=== PATIENT | male | born 1960 | race Caucasian/White ===

== ENCOUNTER 2016-09-22 20:50 | Emergency (ER) | payer OTHER ==
[2016-09-22] MEDS ORDERED: Sodium Chloride 0.9% 1000 ML 1,000 ML IV STA ×2 (21:06→22:00)
[2016-09-22] MEDS ORDERED: SUBLIMAZE 100 MCG/2 ML IV ONE ×2 (21:06→21:34)
[2016-09-22] MEDS ORDERED: Ativan 2 MG/1 ML VIAL IV ONE (21:07)
[2016-09-22] MEDS ORDERED: Ativan 2 MG/1 ML VIAL ONE (21:10)
[2016-09-22] MEDS ORDERED: Sodium Chloride 0.9% 1000 ML 1,000 ML ONE ×2 (21:10→22:30)
[2016-09-22] MEDS ORDERED: SUBLIMAZE 100 MCG/2 ML ONE ×2 (21:10→21:50)
[2016-09-22] MEDS ORDERED: Versed 2 MG/2 ML Injection IV ONE (21:34)
--- NOTE | 2016-09-22 21:37 | ERPHSYRPT ---
- History of Present Illness Time Seen by Provider: 09/22/16 21:35 Source: patient Exam Limitations: no limitations Patient Subjective Stated Complaint: pt states his shoulder is doslocated and he is having extreme pain. Triage Nursing Assessment: pt alert and oriented. answers questions approp. pt irritable and asking for pain medicine. respirations tachy, nonlbored. pt transfer to stretcher from wheelchair without diff. obvious deformity to lt shoulder. cap refill and radial pulse to lt wnl. Physician History: pt states his shoulder is doslocated and he is having extreme pain. Occurred: just prior to arrival Method of Injury: twisted Quality: constant Severity of Pain-Max: severe Severity of Pain-Current: severe Extremities Pain Location: shoulder: left (anterior dislocation) Modifying Factors: Improves With: nothing Associated Symptoms: none Allergies/Adverse Reactions: amoxicillin [Amoxicillin] Allergy (Intermediate, Verified 05/12/16 13:36) Rash Home Medications: Aspirin 81 gm Chew [Baby Aspirin 81 mg Chew] 81 mg PO DAILY 09/14/15 [ History] Duloxetine HCl 30 mg [Cymbalta 30 MG Capsule] 30 mg PO DAILY 09/14/15 [ History] Omeprazole 20 MG [Prilosec 20 mg] 20 mg PO DAILY 09/14/15 [History] Simvastatin 40 mg [Zocor 40 mg] 40 mg PO DAILY 09/14/15 [History] Clopidogrel Bisulfate 75 mg [PLAVIX 75 MG Tablet] 75 mg PO DAILY 10/24/15 [History] Atenolol 25 mg PO DAILY 03/16/16 [History] Hx Tetanus, Diphtheria Vaccination/Date Given: No Hx Influenza Vaccination/Date Given: Yes Hx Pneumococcal Vaccination/Date Given: No - Review of Systems Constitutional: No Symptoms Eyes: No Symptoms Ears, Nose, & Throat: No Symptoms Respiratory: No Symptoms Cardiac: No Symptoms Abdominal/Gastrointestinal: No Symptoms Musculoskeletal: Joint Pain (left shoulder), Joint Swelling - Past Medical History Pertinent Past Medical History: Yes Neurological History: No Pertinent History ENT History: No Pertinent History Cardiac History: Coronary Artery Disease, High Cholesterol, Hypertension, Myocardial Infarction ([place]) Respiratory History: No Pertinent History Endocrine Medical History: No Pertinent History Musculoskeletal History: Fractures GI Medical History: No Pertinent History, Diverticulosis History: No Pertinent History Psycho-Social History: No Pertinent History Male Reproductive Disorders: No Pertinent History - Past Surgical History Past Surgical History: Yes Neuro Surgical History: No Pertinent History Cardiac: CABG, Cardiac Stent Respiratory: No Pertinent History Gastrointestinal: No Pertinent History Genitourinary: No Pertinent History Musculoskeletal: Orthopedic Surgery Male Surgical History: No Pertinent History Other Surgical History: shoulder - Social History Smoking Status: Current every day smoker How long have you smoked: 40 yrs Exposure to second hand smoke: Yes Drug Use: none Patient Lives Alone: No - Nursing Vital Signs Nursing Vital Signs: Initial Vital Signs Temperature 97.6 F Temperature Source Oral Pulse Rate 93 Respiratory Rate 16 Blood Pressure [] 147/92 Pain Intensity 10 - Physical Exam General Appearance: moderate distress Eyes, Ears, Nose, Throat Exam: normal ENT inspection Neck Exam: normal inspection Cardiovascular/Respiratory Exam: chest non-tender Abdominal Exam: non-tender Shoulder Exam: bone tenderness, limited ROM, pain, soft tissue tenderness, swelling (left shoulder) SpO2: 97 Oxygen Delivery: Room Air Procedures - Joint Reduction Timeout: Performed Joint Reduction Site: Left, shoulder Reduction Attempts: 4 Post Procedure Neurovascular Exam: neurovascular intact, unchanged from pre-exam Post Joint Reduction Film: joint not reduced - Course Nursing assessment & vital signs reviewed: Yes - Radiology Exams Shoulder X-ray Interpretation: Reviewed by me, Subluxation (anterior dislocation ) Ordered Tests: Active Orders 24 hr Category Date Time Status SHOULDER Stat Exams 09/22/16 21:06 Taken Medication Summary Discontinued Medications Generic Name Dose Route Start Last Admin Trade Name Freq PRN Reason Stop Dose Admin Fentanyl Citrate 50 mcg 09/22/16 21:06 09/22/16 21:11 Sublimaze 100 Mcg/2 Ml IV 09/22/16 21:07 50 mcg STAT ONE Administration Fentanyl Citrate Confirm 09/22/16 21:10 Sublimaze 100 Mcg/2 Ml Administered 09/22/16 21:11 Dose 100 mcg .ROUTE .STK-MED ONE Fentanyl Citrate 100 mcg 09/22/16 21:34 09/22/16 21:57 Sublimaze 100 Mcg/2 Ml IV 09/22/16 21:35 100 mcg STAT ONE Administration Fentanyl Citrate Confirm 09/22/16 21:50 Sublimaze 100 Mcg/2 Ml Administered 09/22/16 21:51 Dose 100 mcg .ROUTE .STK-MED ONE Sodium Chloride 1,000 mls @ 999 mls/hr 09/22/16 21:06 09/22/16 21:11 Sodium Chloride 0.9% 1000 Ml IV 09/22/16 22:06 999 mls/hr .Q1H1M STA Administration Sodium Chloride Confirm 09/22/16 21:10 Sodium Chloride 0.9% 1000 Ml Administered 09/22/16 21:11 Dose 1,000 mls @ ud .ROUTE .STK-MED ONE Sodium Chloride Confirm 09/22/16 22:30 Sodium Chloride 0.9% 1000 Ml Administered 09/22/16 22:31 Dose 1,000 mls @ ud .ROUTE .STK-MED ONE Lorazepam 2 mg 09/22/16 21:07 09/22/16 21:12 Ativan 2 Mg/1 Ml Vial IV 09/22/16 21:08 2 mg STAT ONE Administration Lorazepam Confirm 09/22/16 21:10 Ativan 2 Mg/1 Ml Vial Administered 09/22/16 21:11 Dose 2 mg .ROUTE .STK-MED ONE Midazolam HCl 2 mg 09/22/16 21:34 09/22/16 21:57 Versed 2 Mg/2 Ml Injection IV 09/22/16 21:35 2 mg 1XONLY ONE Administration Midazolam HCl Confirm 09/22/16 21:51 Versed 5 Mg/5 Ml Administered 09/22/16 21:52 Dose 5 mg .ROUTE .STK-MED ONE - Progress Progress: unchanged, pain not gone completely Discussed with Dr.: Other (Dr Galvez at [facility] ER, she accepted patient. will send [facility]) Will see patient in: ED Counseled pt/family regarding: diagnosis, need for follow-up, rad results - Departure Time of Disposition: 22:59 Departure Disposition: Transfer ([facility] ER via [facility] for further treatmsnt, Dr Wynne informed) Clinical Impression: Shoulder dislocation, recurrent Qualifiers: Laterality: left Qualified Code(s): M24.412 - Recurrent dislocation, left shoulder Condition: Stable Critical Care Time: Yes Critical Care Time(excluding separately billable procedures): 30-74 minutes Referrals: GAIL MONROY [Primary Care Provider] - Instructions: Shoulder Dislocation
[2016-09-22] MEDS ORDERED: VERSED 5 MG/5 ML ONE (21:51)
[2016-09-22 23:18] VITALS: PULSE 89
[2016-09-22 23:39] VITALS: BP 136/87; O2SAT 100
--- NOTE | 2016-09-23 10:27 | XRAY ---
Indication: Pain following injury. Comparison: April 04, 2016. Single AP left shoulder demonstrates new anterior inferior humeral head dislocation with stable moderate AC degenerative arthropathy and heterotopic ossification. No other bony, articular, or soft tissue abnormalities.
== END 2016-09-22 23:34 | disposition short-term general hospital (02) ==
LOC: ED 20:50
PROC: 0RSKXZZ Reposition Left Shoulder Joint, External Approach (ICD-10-PCS; principal; 2016-09-22)
DX: M24.412 Recurrent dislocation, left shoulder (principal); M25.512 Pain in left shoulder; X50.0XXA Overexertion from strenuous movement or load, initial encounter; I10 Essential (primary) hypertension; E78.00 Pure hypercholesterolemia, unspecified; I25.2 Old myocardial infarction; I25.10 Atherosclerotic heart disease of native coronary artery without angina pectoris; Z79.899 Other long term (current) drug therapy
CPT/HCPCS: 23650; 73030; 96360; 96361; 96374; 96375; 96376; 99285; 99291; J2060; J2250; J3010

== ENCOUNTER 2017-06-28 21:17 | Day surgery (SDC) | payer OTHER ==
[2017-06-28] MEDS ORDERED: TORAdol 30 mg Injection IM ONE (21:38)
[2017-06-28] MEDS ORDERED: TORAdol 30 mg Injection ONE (21:43)
--- NOTE | 2017-06-28 21:43 | ERPHSYRPT ---
- History of Present Illness Time Seen by Provider: 06/28/17 21:40 Source: patient Exam Limitations: no limitations Patient Subjective Stated Complaint: left shoulder dislocation while reaching over Triage Nursing Assessment: left shoulder dislocation, pulses palp, CR < 3 sec Physician History: 57-year-old male came to the emergency room with complaining of left shoulder pain. Patient was standing in the bed and suddenly started having a left shoulder pain and he feels like he dislocated his shoulder. He has a same problem off and on with shoulder dislocation. Denies any other injury. Occurred: just prior to arrival Extremities Pain Location: shoulder: left Modifying Factors: Improves With: nothing Associated Symptoms: none Allergies/Adverse Reactions: amoxicillin [Amoxicillin] Allergy (Intermediate, Verified 05/12/16 13:36) Rash Home Medications: Aspirin 81 gm Chew [Baby Aspirin 81 mg Chew] 81 mg PO DAILY 09/14/15 [ History] Duloxetine HCl 30 mg [Cymbalta 30 MG Capsule] 30 mg PO DAILY 09/14/15 [ History] Omeprazole 20 MG [Prilosec 20 mg] 20 mg PO DAILY 09/14/15 [History] Simvastatin 40 mg [Zocor 40 mg] 40 mg PO DAILY 09/14/15 [History] Clopidogrel Bisulfate 75 mg [PLAVIX 75 MG Tablet] 75 mg PO DAILY 10/24/15 [History] Furosemide 20 mg [Lasix 20 mg] 1 tab PO DAILY PRN PRN 06/28/17 [History] Lisinopril [Zestril] 1 tab PO DAILY 06/28/17 [History] Metoprolol Succinate 1 tab PO DAILY 06/28/17 [History] Potassium Chloride 20 Meq [Klor-Con 20 MEQ] 1 tab PO DAILY 06/28/17 [History] Hx Tetanus, Diphtheria Vaccination/Date Given: Yes Hx Influenza Vaccination/Date Given: Yes Hx Pneumococcal Vaccination/Date Given: No Immunizations Up to Date: Yes - Review of Systems Constitutional: No Symptoms Musculoskeletal: Deformity (left shoulder), Joint Pain, Joint Swelling - Past Medical History Pertinent Past Medical History: Yes Neurological History: No Pertinent History ENT History: No Pertinent History Cardiac History: Coronary Artery Disease, High Cholesterol, Hypertension, Myocardial Infarction ([place]) Respiratory History: No Pertinent History Endocrine Medical History: No Pertinent History Musculoskeletal History: Fractures GI Medical History: No Pertinent History, Diverticulosis History: No Pertinent History Psycho-Social History: No Pertinent History Male Reproductive Disorders: No Pertinent History - Past Surgical History Past Surgical History: Yes Neuro Surgical History: No Pertinent History Cardiac: CABG, Cardiac Stent Respiratory: No Pertinent History Gastrointestinal: No Pertinent History Genitourinary: No Pertinent History Musculoskeletal: Orthopedic Surgery Male Surgical History: No Pertinent History Other Surgical History: shoulder - Social History Smoking Status: Current every day smoker How long have you smoked: 40 yrs Exposure to second hand smoke: Yes Drug Use: none Patient Lives Alone: No - Nursing Vital Signs Nursing Vital Signs: Initial Vital Signs Temperature 97.4 F 06/28/17 21:26 Pulse Rate 80 06/28/17 21:26 Respiratory Rate 16 06/28/17 21:26 Blood Pressure 131/76 06/28/17 21:26 O2 Sat by Pulse Oximetry 100 06/28/17 21:26 Pain Scale Pain Intensity 10 - Physical Exam General Appearance: mild distress Shoulder Exam: bone tenderness, deformity, limited ROM, pain, soft tissue tenderness SpO2: 100 Oxygen Delivery: Room Air Procedures - Joint Reduction Timeout: Performed Joint Reduction Site: Left, shoulder Conscious Sedation: Yes Reduction Attempts: 3 Pre-Procedure Neurovascular Exam: neurovascular intact Post Procedure Neurovascular Exam: neurovascular intact Post Joint Reduction Film: joint not reduced Progress: Dr Natan stevens consulted. He suggest he will come to ER and will reduce dislocation at [facility]. 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 - Course Nursing assessment & vital signs reviewed: Yes - Radiology Exams Shoulder X-ray Interpretation: Reviewed by me, Subluxation Ordered Tests: Active Orders 24 hr Category Date Time Status SHOULDER Stat Exams 06/28/17 21:37 Taken Medication Summary Discontinued Medications Generic Name Dose Route Start Last Admin Trade Name Freq PRN Reason Stop Dose Admin Sodium Chloride 1,000 mls @ 999 mls/hr 06/28/17 22:19 06/28/17 22:45 Sodium Chloride 0.9% 1000 Ml IV 06/28/17 23:19 999 mls/hr .Q1H1M STA Administration Sodium Chloride Confirm 06/28/17 22:38 Sodium Chloride 0.9% 1000 Ml Administered 06/28/17 22:39 Dose 1,000 mls @ ud .ROUTE .STK-MED ONE Sodium Chloride Confirm 06/28/17 22:51 Sodium Chloride 0.9% 1000 Ml Administered 06/28/17 22:52 Dose 1,000 mls @ ud .ROUTE .STK-MED ONE Ketorolac Tromethamine 60 mg 06/28/17 21:38 06/28/17 21:47 Toradol 30 Mg Injection IM 06/28/17 21:39 60 mg STAT ONE Administration Ketorolac Tromethamine Confirm 06/28/17 21:43 Toradol 30 Mg Injection Administered 06/28/17 21:44 Dose 60 mg .ROUTE .STK-MED ONE Midazolam HCl 5 mg 06/28/17 22:52 Versed 5 Mg/5 Ml IV 06/28/17 22:53 STAT ONE Midazolam HCl Confirm 06/28/17 22:51 Versed 5 Mg/5 Ml Administered 06/28/17 22:52 Dose 5 mg .ROUTE .STK-MED ONE Morphine Sulfate 4 mg 06/28/17 22:19 06/28/17 22:44 Morphine Sulfate 4 Mg Inj IV 06/28/17 22:20 4 mg STAT ONE Administration Morphine Sulfate Confirm 06/28/17 22:38 Morphine Sulfate 4 Mg Inj Administered 06/28/17 22:39 Dose 4 mg .ROUTE .STK-MED ONE Morphine Sulfate Confirm 06/28/17 23:01 Morphine Sulfate 4 Mg Inj Administered 06/28/17 23:02 Dose 4 mg .ROUTE .STK-MED ONE - Progress Progress: unchanged, pain not gone completely Discussed with : John Will see patient in: ED Counseled pt/family regarding: diagnosis, need for follow-up, rad results - Departure Time of Disposition: 23:34 Departure Disposition: Observation Clinical Impression: Shoulder dislocation, recurrent Qualifiers: Laterality: left Qualified Code(s): M24.412 - Recurrent dislocation, left shoulder Condition: Stable Critical Care Time: Yes Critical Care Time(excluding separately billable procedures): 30-74 minutes Referrals: GAIL MONROY [Primary Care Provider] - Instructions: Shoulder Dislocation
[2017-06-28] MEDS ORDERED: Sodium Chloride 0.9% 1000 ML 1,000 ML IV STA (22:19)
[2017-06-28] MEDS ORDERED: MORPHINE SULFATE 4 MG INJ IV ONE (22:19)
[2017-06-28] MEDS ORDERED: Sodium Chloride 0.9% 1000 ML 1,000 ML ONE ×2 (22:38→22:51)
[2017-06-28] MEDS ORDERED: MORPHINE SULFATE 4 MG INJ ONE ×2 (22:38→23:01)
[2017-06-28] MEDS ORDERED: VERSED 5 MG/5 ML ONE (22:51)
[2017-06-28] MEDS ORDERED: VERSED 5 MG/5 ML IV ONE (22:52)
[2017-06-29] MEDS ORDERED: MORPHINE SULFATE 4 MG INJ IV ONE (00:05)
[2017-06-29] MEDS ORDERED: SUBLIMAZE 100 MCG/2 ML IV ONE (00:08)
[2017-06-29] MEDS ORDERED: DIPRIVAN 200 MG/20 ML IV ONE (00:08)
[2017-06-29 01:41] VITALS: PULSE 77; O2SAT 94
[2017-06-29 02:22] VITALS: BP 125/68
--- NOTE | 2017-06-29 07:58 | XRAY ---
Indication: Left shoulder pain. History of shoulder dislocations. Comparison: September 22, 2016. 3 views of the left shoulder again demonstrates anterior inferior humeral head dislocation, moderate AC degenerative arthropathy, and sternotomy wires. No other bony, articular, or soft tissue abnormalities.
--- NOTE | 2017-06-29 08:00 | XRAY ---
Indication: Intraoperative shoulder reduction. Intraoperative fluoroscopy was provided for 9 seconds. Single oblique projection of the left shoulder demonstrates successful reduction of the previous humeral head dislocation. Correlate with intraoperative findings/report.
--- NOTE | 2017-07-02 09:30 | OP ---
SURGERY DATE/TIME: 06/29/2017 0030 PREOPERATIVE DIAGNOSIS: Unstable glenohumeral dislocation left shoulder. POSTOPERATIVE DIAGNOSIS: Unstable glenohumeral dislocation left shoulder. PROCEDURES: 1) Left shoulder closed reduction, emergent. 2) X-ray per surgeon. 3) Long arm splint, shoulder immobilizer, sling and swath. SURGEON: Natan Lopez D.O. COMMERCIAL PROJECT MANAGER: None. ANESTHESIA: General. ESTIMATED BLOOD LOSS: None. DESCRIPTION OF PROCEDURE: The patient is taken to the operative suite and placed in supine position. General anesthetic. Under x-ray guidance the shoulder was found to be inferiorly and medially dislocated. A simple closed reduction was done and restitution in the joint line. Neurovascular status post-reduction was appropriate and in line. Long arm shoulder immobilizer and long arm splint was applied. The patient sent on to the recovery room in stable condition.
--- NOTE | 2017-07-03 12:23 | XRAY ---
Intraoperative fluoroscopy was provided for 9 seconds for left shoulder.
== END 2017-06-29 02:30 | disposition home or self-care (01) ==
LOC: ED 21:17 → MED SURG 06-29 00:07 → SDC 06-29 00:07 → MED SURG 06-29 01:16 → SDC 06-29 01:16 → MED SURG 06-29 01:16 → UNDOADMOB 06-29 01:16 → SDC 06-29 02:30 → MED SURG 06-29 02:30 → UNDODISOB 06-29 02:30
PROVIDERS: ATTEND Orthopaedic Surgery
PROC: 0RSKXZZ Reposition Left Shoulder Joint, External Approach (ICD-10-PCS; principal; 2017-06-29)
PROC: 2W39X1Z Immobilization of Left Upper Extremity using Splint (ICD-10-PCS; 2017-06-29)
DX: M24.412 Recurrent dislocation, left shoulder (principal); M25.512 Pain in left shoulder
CPT/HCPCS: 01620; 36000; 73030; 76000; 96360; 96374; 96375; 99285; J1885; J2250; J2270; J2704; J3010; L3650

== ENCOUNTER 2018-03-20 09:18 | Emergency (ER) | payer MEDICAID, OTHER ==
[2018-03-20 09:40] VITALS: O2SAT 100
[2018-03-20] MEDS ORDERED: Zofran 4 MG/2 ML VIAL IV ONE (09:42)
[2018-03-20] MEDS ORDERED: Sodium Chloride 0.9% 1000 ML 1,000 ML IV SCH (09:45)
[2018-03-20] MEDS ORDERED: Zofran 4 MG/2 ML VIAL ONE (09:50)
[2018-03-20] MEDS ORDERED: Sodium Chloride 0.9% 1000 ML 1,000 ML ONE (09:50)
--- NOTE | 2018-03-20 09:55 | ERPHSYRPT ---
- History of Present Illness Time Seen by Provider: 03/20/18 09:40 Historian: patient Exam Limitations: no limitations Patient Subjective Stated Complaint: pt states he has a hx of diverticulitis, c/ o abd pain 9/10 with waves of pain across lower abdomen. no BM X 5 days Triage Nursing Assessment: amb to room, c/o waves of pain across lower abd. abd tender to palp, no distention noted. hyperactive bowel sounds, passing gas. last "good" BM 5 days, has passed small yellow bile of stool if strains. feels nauseated. has been drinking tea all night, last ate 6pm last night. Physician History: Pt is c/o lower abdominal pain x 4 days, constipation, nausea, denies vomiting, fever, diarrhea, bloody stool, urinary complaints. He states, he has a history of Diverticulitis, and had colonoscopy 5 years ago. He did not take any medications today. Timing/Duration: day(s) (4) Activities at Onset: none Quality: cramping, sharpness, stabbing Abdominal Pain Onset Location: LLQ, suprapubic Pain Radiation: no radiation Severity of Pain-Max: severe Severity of Pain-Current: moderate Modifying Factors: Improves With: nothing Associated Symptoms: nausea, other (constipation) Allergies/Adverse Reactions: amoxicillin [Amoxicillin] Allergy (Intermediate, Verified 05/12/16 13:36) Rash Home Medications: Aspirin 81 gm Chew [Baby Aspirin 81 mg Chew] 81 mg PO DAILY 09/14/15 [ History] Duloxetine HCl 30 mg [Cymbalta 30 MG Capsule] 30 mg PO DAILY 09/14/15 [ History] Simvastatin 40 mg [Zocor 40 mg] 40 mg PO DAILY 09/14/15 [History] Clopidogrel Bisulfate 75 mg [PLAVIX 75 MG Tablet] 75 mg PO DAILY 10/24/15 [History] Furosemide 20 mg [Lasix 20 mg] 1 tab PO DAILY PRN PRN 06/28/17 [History] Lisinopril [Zestril] 1 tab PO DAILY 06/28/17 [History] Metoprolol Succinate 1 tab PO DAILY 06/28/17 [History] Potassium Chloride 20 Meq [Klor-Con 20 MEQ] 1 tab PO DAILY 06/28/17 [History] Hx Tetanus, Diphtheria Vaccination/Date Given: Yes Hx Influenza Vaccination/Date Given: No Hx Pneumococcal Vaccination/Date Given: No Immunizations Up to Date: Yes - Review of Systems Constitutional: Chills Respiratory: No Symptoms Cardiac: No Symptoms Abdominal/Gastrointestinal: Abdominal Pain, Nausea, Constipation Genitourinary Symptoms: No Symptoms All Other Systems: Reviewed and Negative - Past Medical History Pertinent Past Medical History: Yes Neurological History: No Pertinent History ENT History: No Pertinent History Cardiac History: Coronary Artery Disease, High Cholesterol, Hypertension, Myocardial Infarction ([place]) Respiratory History: No Pertinent History Endocrine Medical History: No Pertinent History Musculoskeletal History: Fractures GI Medical History: No Pertinent History, Diverticulitis, Diverticulosis History: No Pertinent History Psycho-Social History: No Pertinent History Male Reproductive Disorders: No Pertinent History - Past Surgical History Past Surgical History: Yes Neuro Surgical History: No Pertinent History Cardiac: CABG, Cardiac Stent Respiratory: No Pertinent History Gastrointestinal: No Pertinent History Genitourinary: No Pertinent History Musculoskeletal: Orthopedic Surgery Male Surgical History: No Pertinent History Other Surgical History: shoulder - Social History Smoking Status: Current every day smoker How long have you smoked: 40 yrs Exposure to second hand smoke: Yes Drug Use: none Patient Lives Alone: No - Nursing Vital Signs Nursing Vital Signs: Initial Vital Signs Temperature 98.0 F 03/20/18 09:18 Pulse Rate 63 03/20/18 09:18 Respiratory Rate 16 03/20/18 09:18 Blood Pressure 126/82 03/20/18 09:18 O2 Sat by Pulse Oximetry 100 03/20/18 09:18 Pain Scale Pain Intensity 5 - Physical Exam General Appearance: no apparent distress Eye Exam: eyes nml inspection Ears, Nose, Throat Exam: normal ENT inspection, moist mucous membranes Neck Exam: normal inspection, non-tender Respiratory Exam: normal breath sounds, lungs clear Cardiovascular Exam: normal heart sounds, normal peripheral pulses, other (few extra beats) Gastrointestinal/Abdomen Exam: soft, normal bowel sounds, tenderness (mild suprapubic and LLQ), No distention, No mass, No guarding, No ecchymosis, No pulsatile mass, No rebound, No hernia, No organomegaly Rectal Exam: normal exam, normal rectal tone, No mass, No hemorrhoids, No black stool Back Exam: normal inspection, No CVA tenderness Extremity Exam: normal inspection Neurologic Exam: alert, oriented x 3, normal mood/affect Skin Exam: normal color, warm, dry, No rash Lymphatic Exam: No adenopathy SpO2 Interpretation: normal SpO2: 100 Oxygen Delivery: Room Air - Course Nursing assessment & vital signs reviewed: Yes - CT Exams Abdomen/Pelvis CT Interpretation: Tele-radiologist Report, Other (diverticulitis, no complications) Ordered Tests: Active Orders 24 hr Category Date Time Status IV Insertion STAT Care 03/20/18 09:42 Active ABDOMEN AND PELVIS W CONTRAST [CT] Stat Exams 03/20/18 09:43 Completed CBC W DIFF Stat Lab 03/20/18 10:03 Completed CMP Stat Lab 03/20/18 10:03 Completed CULTURE,URINE Stat Lab 03/20/18 10:55 Received LIPASE Stat Lab 03/20/18 10:03 Completed Occult Blood,Stool Other Stat Lab 03/20/18 10:55 Completed UA W/ MICROSCOPIC Stat Lab 03/20/18 10:55 Completed Medication Summary Generic Name Dose Route Start Last Admin Trade Name Freq PRN Reason Stop Dose Admin Sodium Chloride 1,000 mls @ 100 mls/hr 03/20/18 09:45 03/20/18 09:50 Sodium Chloride 0.9% 1000 Ml IV 04/19/18 09:44 100 mls/hr .Q10H QUINN Administration Levofloxacin 750 mg 03/20/18 12:33 Levofloxacin 250mg Tablet PO 03/20/18 12:34 STAT ONE Metronidazole 500 mg 03/20/18 12:33 Flagyl 500 Mg PO 03/20/18 12:34 STAT ONE Discontinued Medications Generic Name Dose Route Start Last Admin Trade Name Freq PRN Reason Stop Dose Admin Ondansetron HCl 4 mg 03/20/18 09:42 03/20/18 09:51 Zofran 4 Mg/2 Ml Vial IV 03/20/18 09:43 4 mg STAT ONE Administration Ondansetron HCl Confirm 03/20/18 09:50 Zofran 4 Mg/2 Ml Vial Administered 03/20/18 09:51 Dose 4 mg .ROUTE .[facility] Lab/Rad Data: Laboratory Result Diagrams 03/20/18 10:03 03/20/18 10:03 Laboratory Results 03/20/18 03/20/18 03/20/18 Range/Units 10:55 10:55 10:03 WBC (4.0-10.5) K/mm3 RBC (4.1-5.6) M/mm3 Hgb (12.5-18.0) gm/dl Hct (42-50) % MCV (78-100) fl MCH (26-32) pg MCHC (32-36) g/dl RDW (11.5-14.0) % Plt Count (150-450) K/mm3 MPV (6-9.5) fl Gran % (36.0-66.0) % Eos # (Auto) (0-0.5) Absolute Lymphs (auto) (1.0-4.6) Absolute Monos (auto) (0.0-1.3) Lymphocytes % (24.0-44.0) % Monocytes % (0.0-12.0) % Eosinophils % (0.00-5.0) % Basophils % (0.0-0.4) % Absolute Granulocytes (1.4-6.9) Basophils # (0-0.4) Sodium 139 (137-145) mmol/L Potassium 4.1 (3.5-5.1) mmol/L Chloride 106 (98-107) mmol/L Carbon Dioxide 22 (22-30) mmol/L Anion Gap 14.9 (5-15) MEQ/L BUN 21 H (9-20) mg/dL Creatinine 0.88 (0.66-1.25) mg/dL Estimated GFR > 60.0 ML/MIN Glucose 112 H (74-106) mg/dL Calcium 9.2 (8.4-10.2) mg/dL Total Bilirubin 0.30 (0.2-1.3) mg/dL AST 20 (17-59) U/L ALT 20 (0-50) U/L Alkaline Phosphatase 95 (38-126) U/L Serum Total Protein 7.0 (6.3-8.2) g/dL Albumin 4.1 (3.5-5.0) g/dL Lipase 45 (23-300) U/L Ur Collection Type VOID Urine Color YELLOW (YELLOW) Urine Appearance CLEAR (CLEAR) Urine pH 5.0 (5-6) Ur Specific Borger 1.015 (1.005-1.025) Urine Protein 50 (Negative) Urine Ketones NEGATIVE (NEGATIVE) Urine Blood 250 (0-5) Benjamin/ul Urine Nitrite NEGATIVE (NEGATIVE) Urine Bilirubin NEGATIVE (NEGATIVE) Urine Urobilinogen NORMAL (0-1) mg/dL Ur Leukocyte Esterase NEGATIVE (NEGATIVE) Urine Microscopic RBC 15-25 (0-2) /HPF Urine Microscopic WBC 0-2 (0-5) /HPF Ur Epithelial Cells RARE (FEW) /HPF Urine Bacteria RARE (NEGATIVE) /HPF Hyaline Casts 2-5 (0-2) /LPF Urine Mucus SLIGHT (NEGATIVE) /HPF Urine Culture Reflexed YES (NO) Urine Glucose NEGATIVE (NEGATIVE) mg/dL Stool Occult Blood NEGATIVE (Negative) 03/20/18 Range/Units 10:03 WBC 13.9 H (4.0-10.5) K/mm3 RBC 3.75 L (4.1-5.6) M/mm3 Hgb 13.5 (12.5-18.0) gm/dl Hct 37.9 L (42-50) % MCV 101.1 H (78-100) fl MCH 36.0 H (26-32) pg MCHC 35.6 (32-36) g/dl RDW 13.7 (11.5-14.0) % Plt Count 307 (150-450) K/mm3 MPV 9.5 (6-9.5) fl Gran % 75.0 H (36.0-66.0) % Eos # (Auto) 0.44 (0-0.5) Absolute Lymphs (auto) 1.78 (1.0-4.6) Absolute Monos (auto) 1.21 (0.0-1.3) Lymphocytes % 12.8 L (24.0-44.0) % Monocytes % 8.7 (0.0-12.0) % Eosinophils % 3.2 (0.00-5.0) % Basophils % 0.3 (0.0-0.4) % Absolute Granulocytes 10.41 H (1.4-6.9) Basophils # 0.04 (0-0.4) Sodium (137-145) mmol/L Potassium (3.5-5.1) mmol/L Chloride (98-107) mmol/L Carbon Dioxide (22-30) mmol/L Anion Gap (5-15) MEQ/L BUN (9-20) mg/dL Creatinine (0.66-1.25) mg/dL Estimated GFR ML/MIN Glucose (74-106) mg/dL Calcium (8.4-10.2) mg/dL Total Bilirubin (0.2-1.3) mg/dL AST (17-59) U/L ALT (0-50) U/L Alkaline Phosphatase (38-126) U/L Serum Total Protein (6.3-8.2) g/dL Albumin (3.5-5.0) g/dL Lipase (23-300) U/L Ur Collection Type Urine Color (YELLOW) Urine Appearance (CLEAR) Urine pH (5-6) Ur Specific Borger (1.005-1.025) Urine Protein (Negative) Urine Ketones (NEGATIVE) Urine Blood (0-5) Benjamin/ul Urine Nitrite (NEGATIVE) Urine Bilirubin (NEGATIVE) Urine Urobilinogen (0-1) mg/dL Ur Leukocyte Esterase (NEGATIVE) Urine Microscopic RBC (0-2) /HPF Urine Microscopic WBC (0-5) /HPF Ur Epithelial Cells (FEW) /HPF Urine Bacteria (NEGATIVE) /HPF Hyaline Casts (0-2) /LPF Urine Mucus (NEGATIVE) /HPF Urine Culture Reflexed (NO) Urine Glucose (NEGATIVE) mg/dL Stool Occult Blood (Negative) - Progress Progress: improved Progress Note: 03/20/18 12:34 Pt has been afebrile, no severe pain, did not vomit, he was given PO Flagyl and Levaquin, discussed our results with him and his family, he is being discharged in good condition. to follow up with his PCP in 2-3 days, or return if severe pain, vomiting, fever> [address] Michel, discussed his results and current condition, he agreed with the plan. Discussed with : Marilu Will see patient in: office Counseled pt/family regarding: lab results, diagnosis, need for follow-up, rad results - Departure Time of Disposition: 12:36 Departure Disposition: Home Clinical Impression: Diverticulitis Condition: Stable Critical Care Time: No Referrals: GAIL MICHEL [Primary Care Provider] - Instructions: Diverticulitis (DC) Additional Instructions: Rest x 2-3 days, continue liquid diet, and follow up with your PCP in 2-3 days, return if severe pain, vomiting, fever> 102 F! Prescriptions: Dicyclomine HCl 20 mg [Bentyl 20 mg] 20 mg PO Q6HPRN PRN #15 tablet PRN Reason: Pain Levofloxacin [Levaquin] 1 tab PO DAILY #10 tablet Metronidazole 500 mg [Flagyl 500 MG] 500 mg PO TID 10 Days #30 tablet
[2018-03-20 10:04] LABS: BASOPHIL % 0.3 % (0.0-0.4); Basophil (Absolute #) 0.04 (0-0.4); Eosinophil % 3.2 % (0.00-5.0); Eosinophil (Absolute #) 0.44 (0-0.5); Granulocyte Absolute (ANC) 10.41 (1.4-6.9); Hematocrit 37.9 % (42-50); Hemoglobin 13.5 gm/dl (12.5-18.0); Lymphocyte (Absolute #) 1.78 (1.0-4.6); Lymphocytes % 12.8 % (24.0-44.0); Mean Cell Volume 101.1 fl (78-100); Mean Corpuscular Hgb Concent. 35.6 g/dl (32-36); Mean Platelet Volume 9.5 fl (6-9.5); Monocyte (Absolute #) 1.21 (0.0-1.3); Monocytes % 8.7 % (0.0-12.0); Platelet Count 307 K/mm3 (150-450); Red Blood Count 3.75 M/mm3 (4.1-5.6); Red Cell Distribution Width 13.7 % (11.5-14.0); White Blood Count 13.9 K/mm3 (4.0-10.5)
[2018-03-20 10:53] LABS: ALBUMIN 4.1 g/dL (3.5-5.0); ALKALINE PHOSPHATASE 95 U/L (38-126); ANION GAP 14.9 MEQ/L (5-15); BLOOD UREA NITROGEN 21 mg/dL (9-20); CHLORIDE 106 mmol/L (98-107); Calcium 9.2 mg/dL (8.4-10.2); Carbon Dioxide 22 mmol/L (22-30); Creatinine 1 0.88 mg/dL (0.66-1.25); Glucose 112 mg/dL (74-106); LIPASE 45 U/L (23-300); Potassium 4.1 mmol/L (3.5-5.1); SGOT/AST 20 U/L (17-59); SGPT/ALT 20 U/L (0-50); SODIUM 139 mmol/L (137-145)
[2018-03-20 10:58] LABS: Appearance CLEAR (CLEAR); Bilirubin NEGATIVE (NEGATIVE); Blood 250 Ery/ul (0-5); Glucose NEGATIVE (NEGATIVE); Ketones NEGATIVE (NEGATIVE); Leukocyte Esterase NEGATIVE (NEGATIVE); Mucus SLIGHT /HPF (NEGATIVE); Nitrite NEGATIVE (NEGATIVE); Protein,Urine Dip 50 (Negative); Specific Gravity 1.015 (1.005-1.025); Urobilinogen NORMAL mg/dL (0-1)
[2018-03-20 10:59] LABS: Bacteria RARE /HPF (NEGATIVE); Epithelial Cells RARE /HPF (FEW); RBC 15-25 /HPF (0-2); WBC 0-2 /HPF (0-5)
--- NOTE | 2018-03-20 12:12 | XRAY ---
Indication: Abdomen/pelvic pain. Constipation. History diverticulitis. Multiple contiguous axial images obtained through the abdomen and pelvis using 80 cc Isovue 370 contrast only. Comparison: November 14, 2013. Lung bases demonstrates mild bibasilar dependent atelectasis. No infiltrate or effusion. Heart is not enlarged. Noncontrasted stomach and bowel loops appear nonobstructed. Normal appendix. Again sigmoid diverticulosis with now wall thickening and moderate stranding favoring diverticulitis. No free fluid or air. Stable left renal cyst. Remaining liver, gallbladder, pancreas, spleen, adrenal glands, kidneys, ureters, and bladder appear unremarkable. There remains minimal aortoiliac calcifications. No AAA or pathologic retroperitoneal lymphadenopathy. Osseous structures demonstrates interval healed right L1 transverse process fracture. Also remote nonunited left L1 transverse process and L4/L5 spinous process fractures. Stable small fatty umbilical hernia. Impression: 1. New sigmoid diverticulitis without complications. 2. Stable left renal cyst and small fatty umbilical hernia. 3. Old lumbar fractures. CT DI 9.32
[2018-03-20] MEDS ORDERED: Flagyl 500 MG PO ONE (12:33)
[2018-03-20] MEDS ORDERED: Levofloxacin 250MG Tablet PO ONE (12:33)
[2018-03-20] MEDS ORDERED: Flagyl 500 MG ONE (12:37)
[2018-03-20] MEDS ORDERED: Levofloxacin 250MG Tablet ONE (12:38)
[2018-03-20 13:15] VITALS: BP 138/79; PULSE 76
== END 2018-03-20 13:14 | disposition home or self-care (01) ==
LOC: ED 09:18
DX: K57.32 Diverticulitis of large intestine without perforation or abscess without bleeding (principal); K59.00 Constipation, unspecified; R11.0 Nausea; Z79.01 Long term (current) use of anticoagulants; Z79.82 Long term (current) use of aspirin; Z79.899 Other long term (current) drug therapy
CPT/HCPCS: 36415; 74177; 80053; 81000; 82272; 83690; 85025; 87086; 96360; 96374; 99284; J2405; A9270-GY

== ENCOUNTER 2018-05-05 08:33 | Day surgery (SDC) | payer MEDICAID ==
--- NOTE | 2018-05-05 08:29 | HP ---
DATE OF SURGERY: 05/05/2018 HISTORY OF PRESENT ILLNESS: The patient is a 58 year-old had a recent bout of diverticulitis right lower abdomen a few weeks ago. CT showed diverticulitis without complication. He had some back pain that improved some. He had a similar episode in the past. Last colonoscopy ten years or so ago. He had some problems with some hematuria. He had already seen an urologist down in [place]. I felt he would benefit from colonoscopy for further evaluation. PAST MEDICAL HISTORY: Coronary artery disease, hypertension, myocardial infarction. PAST SURGICAL HISTORY: Placement of defibrillator in the past. Coronary artery bypass graft in the past. Surgery on his wrist and shoulder in the past. MEDICATIONS: Aspirin, Cymbalta, Lasix, lisinopril, Xarelto. Amitriptyline, carvedilol, Cleocin, diclofenac, Protonix, Simvastatin, potassium chloride, Furosemide, duloxetine. ALLERGIES: AMOXICILLIN. FAMILY HISTORY: Heart disease. Negative for colon cancer. Negative for inflammatory bowel disease. SOCIAL HISTORY: One pack per day smoker. He does drink some alcohol denies abuse. REVIEW OF SYSTEMS: Twelve systems reviewed. No chest pain or palpitations other systems negative or noncontributory as above and per preadmission questionnaire. PHYSICAL EXAMINATION: GENERAL: No acute distress. HEENT: Sclerae nonicteric. NECK: No JVD. CHEST: Equal excursion, nonlabored breathing. CVS: Regular rate and rhythm. ABDOMEN: Soft. No peritoneal signs. EXTREMITIES: No significant edema. NEURO: Alert, oriented, moving extremities symmetrically. No gross motor deficits noted. RECTAL: Deferred timed to endoscopy exam. IMPRESSION: Question of diverticulitis in the past, in need of follow up colonoscopy. I feel he is a candidate. Risks and benefits explained in detail including but not limited to bleeding or infection, small risk of bowel injury or perforation possibly requiring open procedure, small risk of missed or nondiagnosis or incomplete exam possibly requiring barium enema, other studies or procedures, general risk of anesthesia or sedation. He understands and agrees to the planned procedure and will proceed with outpatient colonoscopy.
[~2018-05-05 08:33] MED LIST: Lactated Ringers 1,000 ML IV ONE; Lactated Ringers 1,000 ML IV SCH
[2018-05-05] MEDS ORDERED: DIPRIVAN 200 MG/20 ML IV ONE (08:34)
[2018-05-05 12:28] VITALS: O2SAT 98
[2018-05-05 12:33] VITALS: BP 115/71; PULSE 71
--- NOTE | 2018-05-05 13:00 | OP ---
SURGERY DATE/TIME: 05/05/2018 1045 PREOPERATIVE DIAGNOSIS: History of question of diverticulitis attack in the past, need for follow up colonoscopy. POSTOPERATIVE DIAGNOSES: 1) Diverticulosis. 2) Small raised lesion versus hyperplastic lesion, versus very early polyps rectosigmoid and rectum. 3) Small internal and external hemorrhoids. 4) Fair bowel prep. PROCEDURES: 1) Colonoscopy to terminal ileum. 2) Retrograde ileoscopy. 3) Random cold biopsies of the colon particularly the left colon to evaluate for microscopic colitis. 4) Hot biopsy removal small raised lesion rectosigmoid proximal rectum and distal rectum. SURGEON: Dr. Koffi Nunez. MONUMENT INSTALLER: Jorge Dickinson, Medical Student III. ANESTHESIA: MAC. ESTIMATED BLOOD LOSS: Minimal. INDICATIONS: As noted above. Risks and benefits explained in detail but not limited to and consent obtained. DESCRIPTION OF PROCEDURE AND FINDINGS: The patient is taken to the operating room. MAC anesthesia introduced. After official time out and no disagreement with planned procedure, digital rectal exam did not reveal any rectal masses. Video colonoscope inserted and passed up the tortuous sigmoid, descending, transverse and ascending colon around to the cecum. The scope was able to be passed up the terminal ileum. Retrograde ileoscopy performed which was grossly unremarkable. No signs of inflammatory issues. Normal appearing ileum. The scope is slowly and carefully withdrawn. Prep overall was fair. There were no signs of any large polyps, masses or obstructing lesions. As he did have some aches and pains on the left side some random cold biopsies were taken throughout the colon particularly emphasizing his left side to evaluate for microscopic colitis. There was no evidence of any microscopic colitis. He did have some diverticulosis in the left colon and small diverticula. In the rectosigmoid, proximal distal rectum he had several small raised lesions versus hyperplastic lesions versus early hyperplastic lesions versus early polyps. These were removed with hot biopsy forceps with brief bursts of cautery. Good hemostasis noted. Otherwise just some small internal and external hemorrhoids. There are no signs of any large polyps, masses or obstructing lesions. Scope is withdrawn. Findings discussed with the family out in the waiting area. He was transferred to the recovery room in stable condition.
== END 2018-05-05 12:35 | disposition home or self-care (01) ==
LOC: SDC 08:33
PROVIDERS: ATTEND Surgery
DX: K57.90 Diverticulosis of intestine, part unspecified, without perforation or abscess without bleeding (principal); K63.9 Disease of intestine, unspecified; K62.9 Disease of anus and rectum, unspecified; K64.8 Other hemorrhoids; K64.4 Residual hemorrhoidal skin tags
CPT/HCPCS: 94250; J2704

== ENCOUNTER 2018-07-19 19:32 | Observation (INO) | payer MEDICAID, OTHER ==
[2018-07-19] MEDS ORDERED: Zofran 4 MG/2 ML VIAL IV ONE (20:03)
[2018-07-19] MEDS ORDERED: MORPHINE SULFATE 4 MG INJ IV ONE (20:03)
[2018-07-19] MEDS ORDERED: BENADRYL 50 MG/ML IV ONE (20:03)
[2018-07-19] MEDS ORDERED: Sodium Chloride 0.9% 1000 ML 1,000 ML IV SCH (20:15)
[2018-07-19] MEDS ORDERED: Zofran 4 MG/2 ML VIAL ONE (20:20)
[2018-07-19] MEDS ORDERED: MORPHINE SULFATE 4 MG INJ ONE (20:20)
[2018-07-19] MEDS ORDERED: Sodium Chloride 0.9% 1000 ML 1,000 ML ONE (20:20)
[2018-07-19] MEDS ORDERED: BENADRYL 50 MG/ML ONE (20:20)
--- NOTE | 2018-07-19 20:40 | ERPHSYRPT ---
- History of Present Illness Time Seen by Provider: 07/19/18 20:35 Source: patient, family Exam Limitations: no limitations Patient Subjective Stated Complaint: pt states at approx 1000 while he was lifting a box approx 30-40 lbs he felt a pop in his rt scapula area and when he got home he has increased swelling and pain Triage Nursing Assessment: pt awake and alert, answers questions approp. respirations nonlabored with lungs cta. pt ambulatory with steady gait noted. skin black, warm and dry. swelling and tenerness noted to rt scapular area. pt moves rt arm and states increased pain iwth movement. radial pulse and cap refill wnl Physician History: pt had post chest trauma a few weeks ago but thought OK and then had pop today right shoudler and has swelling since that time- not short of breath, no abd pain or flank pain; chest clear, neuro vasc intact. Occurred: this morning Method of Injury: other (lifting) Severity of Pain-Max: moderate Severity of Pain-Current: moderate Extremities Pain Location: shoulder: right Modifying Factors: Improves With: immobilization, movement Associated Symptoms: none Allergies/Adverse Reactions: amoxicillin [Amoxicillin] Allergy (Intermediate, Verified 07/19/18 20:18) Rash Home Medications: Duloxetine HCl 30 mg [Cymbalta 30 MG Capsule] 30 mg PO DAILY 09/14/15 [ History] Simvastatin 40 mg [Zocor 40 mg] 40 mg PO DAILY 09/14/15 [History] Furosemide 20 mg [Lasix 20 mg] 1 tab PO DAILY PRN PRN 06/28/17 [History] Lisinopril [Zestril] 5 mg PO DAILY 06/28/17 [History] Potassium Chloride 20 Meq [Klor-Con 20 MEQ] 1 tab PO DAILY 06/28/17 [History] Carvedilol 12.5 mg [Coreg 12.5 mg] 12.5 mg PO BID 04/10/18 [History] PANTOPRAZOLE 40 mg Tablet [Protonix 40MG Tablet] 40 mg PO QAM 04/10/18 [ History] Hx Tetanus, Diphtheria Vaccination/Date Given: Yes Hx Influenza Vaccination/Date Given: Yes Hx Pneumococcal Vaccination/Date Given: No Immunizations Up to Date: Yes - Review of Systems Constitutional: No Fever, No Chills Eyes: No Symptoms Ears, Nose, & Throat: No Symptoms Respiratory: No Cough, No Dyspnea Cardiac: No Chest Pain, No Edema, No Syncope Abdominal/Gastrointestinal: No Abdominal Pain, No Nausea, No Vomiting, No Diarrhea Genitourinary Symptoms: No Dysuria Musculoskeletal: Injury, Joint Pain, No Back Pain, No Neck Pain Skin: No Rash Neurological: No Dizziness, No Focal Weakness, No Sensory Changes Psychological: No Symptoms Endocrine: No Symptoms All Other Systems: Reviewed and Negative - Past Medical History Pertinent Past Medical History: Yes Neurological History: No Pertinent History ENT History: No Pertinent History Cardiac History: Coronary Artery Disease, High Cholesterol, Hypertension, Myocardial Infarction ([place]) Respiratory History: No Pertinent History Endocrine Medical History: No Pertinent History Musculoskeletal History: Fractures GI Medical History: Diverticulitis, Diverticulosis History: No Pertinent History Psycho-Social History: No Pertinent History Male Reproductive Disorders: No Pertinent History Other Medical History: repeated shoulder dislocations - Past Surgical History Past Surgical History: Yes Neuro Surgical History: No Pertinent History Cardiac: CABG, Cardiac Stent, Internal Defibrillator, Pacemaker Respiratory: No Pertinent History Gastrointestinal: No Pertinent History Genitourinary: No Pertinent History Musculoskeletal: Orthopedic Surgery Male Surgical History: No Pertinent History Other Surgical History: Right shoulder rotator cuff repair,, cardiac stent x one placed, pacemaker/defib. placed 2017. - Social History Smoking Status: Current every day smoker How long have you smoked: 40 yrs Exposure to second hand smoke: Yes Drug Use: none Patient Lives Alone: No - Nursing Vital Signs Nursing Vital Signs: Initial Vital Signs Temperature 97.3 F 07/19/18 19:53 Pulse Rate 75 07/19/18 19:53 Respiratory Rate 18 07/19/18 19:53 Blood Pressure 135/60 07/19/18 19:53 O2 Sat by Pulse Oximetry 100 07/19/18 19:53 Pain Scale Pain Intensity 5 - Physical Exam General Appearance: alert Eyes, Ears, Nose, Throat Exam: moist mucous membranes Neck Exam: non-tender, supple Cardiovascular/Respiratory Exam: chest non-tender, normal breath sounds, regular rate/rhythm, no respiratory distress Abdominal Exam: non-tender, No guarding Back Exam: normal inspection, No vertebral tenderness Shoulder Exam: bone tenderness, deformity, limited ROM, soft tissue tenderness, swelling Elbow/Forearm Exam: normal inspection, non-tender, no evidence of injury, normal ROM Wrist Exam: normal inspection, non-tender, no evidence of injury, normal ROM Hand Exam: normal inspection, non-tender, no evidence of injury, normal ROM DTR - Upper Extremity Exam: bicep (R): 2+, bicep (L): 2+, tricep (R): 2+, tricep (L): 2+ Neuro/Tendon Exam: normal sensation, normal motor functions Mental Status Exam: alert, oriented x 3, cooperative, uncooperative Skin Exam: normal color, warm, dry SpO2 Interpretation: normal SpO2: 100 - Course Nursing assessment & vital signs reviewed: Yes EKG Interpreted by Me: Sinus Rhythm, NORMAL AXIS, NORMAL INTERVALS, NORMAL QRS, Non-specific ST Changes Ordered Tests: Active Orders 24 hr Category Date Time Status EKG-ER Only STAT Care 07/19/18 20:03 Active IV Insertion STAT Care 07/19/18 20:03 Active CHEST WITHOUT CONTRAST [CT] Stat Exams 07/19/18 20:08 Taken UPPER EXTREMITY W/O CONTRAST [CT] Stat Exams 07/19/18 20:09 Taken CBC W DIFF Stat Lab 07/19/18 21:00 Completed CMP Stat Lab 07/19/18 21:00 Completed Medication Summary Generic Name Dose Route Start Last Admin Trade Name Freq PRN Reason Stop Dose Admin Sodium Chloride 1,000 mls @ 100 mls/hr 07/19/18 20:15 07/19/18 20:33 Sodium Chloride 0.9% 1000 Ml IV 08/18/18 20:14 100 mls/hr .Q10H QUINN Administration Discontinued Medications Generic Name Dose Route Start Last Admin Trade Name Freq PRN Reason Stop Dose Admin Diphenhydramine HCl 25 mg 07/19/18 20:03 07/19/18 20:32 Benadryl 50 Mg/Ml IV 07/19/18 20:04 25 mg STAT ONE Administration Diphenhydramine HCl Confirm 07/19/18 20:20 Benadryl 50 Mg/Ml Administered 07/19/18 20:21 Dose 50 mg .ROUTE .STK-MED ONE Hydromorphone HCl 1 mg 07/19/18 21:05 07/19/18 21:13 Hydromorphone 1 Mg/Ml Ampule IV 07/19/18 21:06 1 mg STAT ONE Administration Hydromorphone HCl Confirm 07/19/18 21:12 Hydromorphone 1 Mg/Ml Ampule Administered 07/19/18 21:13 Dose 1 mg .ROUTE .STK-MED ONE Morphine Sulfate 4 mg 07/19/18 20:03 07/19/18 20:32 Morphine Sulfate 4 Mg Inj IV 07/19/18 20:04 4 mg STAT ONE Administration Morphine Sulfate Confirm 07/19/18 20:20 Morphine Sulfate 4 Mg Inj Administered 07/19/18 20:21 Dose 4 mg .ROUTE .STK-MED ONE Ondansetron HCl 4 mg 07/19/18 20:03 07/19/18 20:32 Zofran 4 Mg/2 Ml Vial IV 07/19/18 20:04 4 mg STAT ONE Administration Ondansetron HCl Confirm 07/19/18 20:20 Zofran 4 Mg/2 Ml Vial Administered 07/19/18 20:21 Dose 4 mg .ROUTE .STK-MED ONE Lab/Rad Data: Laboratory Result Diagrams 07/19/18 21:00 07/19/18 21:00 Laboratory Results 07/19/18 07/19/18 Range/Units 21:00 21:00 WBC 11.8 H (4.0-10.5) K/mm3 RBC 3.55 L (4.1-5.6) M/mm3 Hgb 11.7 L (12.5-18.0) gm/dl Hct 36.9 L (42-50) % MCV 103.9 H (78-100) fl MCH 32.9 H (26-32) pg MCHC 31.7 L (32-36) g/dl RDW 14.5 H (11.5-14.0) % Plt Count 413 (150-450) K/mm3 MPV 10.2 H (6-9.5) fl Gran % 58.7 (36.0-66.0) % Eos # (Auto) 0.62 H (0-0.5) Absolute Lymphs (auto) 3.13 (1.0-4.6) Absolute Monos (auto) 1.07 (0.0-1.3) Lymphocytes % 26.6 (24.0-44.0) % Monocytes % 9.1 (0.0-12.0) % Eosinophils % 5.3 H (0.00-5.0) % Basophils % 0.3 (0.0-0.4) % Absolute Granulocytes 6.91 H (1.4-6.9) Basophils # 0.03 (0-0.4) Sodium 141 (137-145) mmol/L Potassium 4.1 (3.5-5.1) mmol/L Chloride 108 H (98-107) mmol/L Carbon Dioxide 24 (22-30) mmol/L Anion Gap 13.5 (5-15) MEQ/L BUN 18 (9-20) mg/dL Creatinine 0.96 (0.66-1.25) mg/dL Estimated GFR > 60.0 ML/MIN Glucose 74 (74-106) mg/dL Calcium 9.4 (8.4-10.2) mg/dL Total Bilirubin 0.30 (0.2-1.3) mg/dL AST 25 (17-59) U/L ALT 19 (0-50) U/L Alkaline Phosphatase 100 (38-126) U/L Serum Total Protein 7.2 (6.3-8.2) g/dL Albumin 4.1 (3.5-5.0) g/dL - Progress Progress: improved, re-examined Progress Note: 07/20/18 00:18 required extra time due to backup in lab and ct delaying pt dispo; rounded on pt x 4 during this time to confirm status ok and unchanged. 07/20/18 00:[address] Lindsey and pt and Dr moses - Dr moses felt OK to hold xarelto and dr lindsey and pt agree with obs of hematoma and CBC . Discussed with : Javed, Other (dr moses - OK to hold xarelto) Will see patient in: hospital (observation) Counseled pt/family regarding: lab results, diagnosis, need for follow-up, rad results - Departure Time of Disposition: 00:21 Departure Disposition: Observation Clinical Impression: Hematoma of right chest wall Condition: Good Critical Care Time: No Referrals: GAIL MONROY [Primary Care Provider] -
[2018-07-19] MEDS ORDERED: Hydromorphone 1 mg/ml Ampule IV ONE (21:05)
[2018-07-19] MEDS ORDERED: Hydromorphone 1 mg/ml Ampule ONE (21:12)
[2018-07-19 22:06] LABS: ALBUMIN 4.1 g/dL (3.5-5.0); ALKALINE PHOSPHATASE 100 U/L (38-126); ANION GAP 13.5 MEQ/L (5-15); BASOPHIL % 0.3 % (0.0-0.4); BLOOD UREA NITROGEN 18 mg/dL (9-20); Basophil (Absolute #) 0.03 (0-0.4); CHLORIDE 108 mmol/L (98-107); Calcium 9.4 mg/dL (8.4-10.2); Carbon Dioxide 24 mmol/L (22-30); Creatinine 1 0.96 mg/dL (0.66-1.25); Eosinophil % 5.3 % (0.00-5.0); Eosinophil (Absolute #) 0.62 (0-0.5); Glucose 74 mg/dL (74-106); Granulocytes % 58.7 % (36.0-66.0); Hematocrit 36.9 % (42-50); Hemoglobin 11.7 gm/dl (12.5-18.0); Lymphocyte (Absolute #) 3.13 (1.0-4.6); Lymphocytes % 26.6 % (24.0-44.0); Mean Cell Volume 103.9 fl (78-100); Mean Corpuscular Hgb Concent. 31.7 g/dl (32-36); Mean Platelet Volume 10.2 fl (6-9.5); Monocyte (Absolute #) 1.07 (0.0-1.3); Monocytes % 9.1 % (0.0-12.0); Platelet Count 413 K/mm3 (150-450); Potassium 4.1 mmol/L (3.5-5.1); Red Blood Count 3.55 M/mm3 (4.1-5.6); Red Cell Distribution Width 14.5 % (11.5-14.0); SGOT/AST 25 U/L (17-59); SGPT/ALT 19 U/L (0-50); SODIUM 141 mmol/L (137-145); Total Protein 7.2 g/dL (6.3-8.2); White Blood Count 11.8 K/mm3 (4.0-10.5)
[2018-07-19 22:23] LABS: Mean Corpuscular Hemoglobin 32.9 pg (26-32)
[2018-07-20] MEDS ORDERED: MORPHINE SULFATE 10 MG/ML IV ONE (01:20)
[2018-07-20] MEDS ORDERED: BENADRYL 50 MG/ML IV ONE (01:21)
[2018-07-20] MEDS ORDERED: MORPHINE SULFATE 10 MG/ML ONE (01:29)
[2018-07-20] MEDS ORDERED: BENADRYL 50 MG/ML ONE (01:29)
[2018-07-20] MEDS ORDERED: Zofran 4 MG/2 ML VIAL IV PRN (02:25)
[2018-07-20] MEDS ORDERED: MORPHINE SULFATE 4 MG INJ IV PRN (02:25)
[2018-07-20] MEDS ORDERED: Sodium Chloride 0.9% 1000 ML 1,000 ML IV SCH (02:25)
[2018-07-20] MEDS ORDERED: NovoLIN R SQ PRN (02:25)
[2018-07-20] MEDS ORDERED: BENADRYL 50 MG/ML IV PRN (02:25)
[2018-07-20 06:22] LABS: BASOPHIL % 0.2 % (0.0-0.4); Basophil (Absolute #) 0.02 (0-0.4); Eosinophil % 6.4 % (0.00-5.0); Eosinophil (Absolute #) 0.57 (0-0.5); Granulocytes % 58.3 % (36.0-66.0); Hematocrit 33.8 % (42-50); Hemoglobin 10.6 gm/dl (12.5-18.0); Lymphocyte (Absolute #) 2.14 (1.0-4.6); Lymphocytes % 23.9 % (24.0-44.0); Mean Cell Volume 103.4 fl (78-100); Mean Corpuscular Hemoglobin 32.4 pg (26-32); Mean Corpuscular Hgb Concent. 31.4 g/dl (32-36); Monocytes % 11.2 % (0.0-12.0); Platelet Count 367 K/mm3 (150-450); Red Blood Count 3.27 M/mm3 (4.1-5.6); White Blood Count 8.9 K/mm3 (4.0-10.5)
--- NOTE | 2018-07-20 09:12 | XRAY ---
Indication: Right scapula pain/edema. Multiple contiguous axial images obtained through the chest without contrast as ordered. Comparison: November 14, 2013. Lungs inflated again with mild bilateral dependent atelectasis, scattered fibrosis/scarring, and biapical subpleural cystic changes. Stable 5 mm right middle lobe noncalcified nodule favored to be benign given stability over the years. New small patchy airspace opacities in both upper lobes without consolidation or effusion. Heart is not enlarged. New left-sided pacemaker. Aorta is normal in course and caliber. Stable distal paratracheal and right hilar calcified nodes. No pathologic mediastinal lymphadenopathy. Bone windows reveal new minimally displaced right 8/9 posterior lateral rib fractures. Old left 11 rib fracture. New large right lateral chest wall hematoma at least 3.5 x 12 cm in greatest axial dimension presumed related to rib fractures. Stable degenerative changes throughout the spine and sternotomy wires. Limited upper abdomen again demonstrates a few calcified splenic granulomas. Impression: 1. New bilateral upper lobe patchy airspace disease without consolidation/effusion. Correlate clinically. 2. New right 8/9 rib fractures with right lateral chest wall hematoma. No pneumothorax/hemothorax. 3. New left-sided pacemaker without complications. 4. Again scattered atelectasis, fibrosis/scarring, and evidence for old granulomatous disease. Comment: Preliminary interpretation was made by [facility]. No discrepancy. CTDI 10.68
--- NOTE | 2018-07-20 09:18 | XRAY ---
Indication: Right shoulder/scapula pain. Multiple contiguous axial images obtained through the right shoulder/scapula. Sagittal and coronal reformatted images obtained. Comparison: None Minimally displaced right 8 posterior lateral acute rib fracture. Same day CT chest also documents adjacent right 9 rib fracture. Large right lateral chest wall hematoma at least 3.5 x 12 cm in greatest sagittal dimension presumed related to rib fractures. No other acute fracture, dislocation, or suspicious bony lesions. A few small benign axillary lymph nodes. No pathologic lymphadenopathy. CT chest reported separately. Impression: Right 8/9 rib fractures with associated chest wall hematoma. Comment: Preliminary interpretation was made by [facility]. No discrepancy. CTDI 79.18
--- NOTE | 2018-07-20 09:45 | PCM.SSS ---
History of Present Illness - Chief Complaint Chief Complaint: Hematoma with rib fracture History of Present Illness: is a 58 year old male who presented to the ER yesterday, earlier in the day while lifting a box he felt a sharp pop in the right lateral and posterior rib area. he denies shortness of breath, he is on xarelto. Dr Andrew was consulted from ER and ok to stop xarelto, he is breathing normally, has pain in the area. h/h stable since admission and area of hematoma outlined and no increase in size since admission. - Review of Systems Constitutional: No Symptoms Respiratory: No Cough, No Short Of Breath Cardiac: Chest Pain, No Edema, No Syncope Abdominal/Gastrointestinal: No Abdominal Pain, No Nausea, No Vomiting, No Diarrhea Genitourinary Symptoms: No Dysuria Musculoskeletal: No Back Pain, No Neck Pain Skin: No Rash All Other Systems: Reviewed and Negative Medications & Allergies Home Medications: Home Medication List Duloxetine HCl 30 mg [Cymbalta 30 MG Capsule] 30 mg PO DAILY 09/14/15 [ History Confirmed 07/20/18] Simvastatin 40 mg [Zocor 40 mg] 40 mg PO DAILY 09/14/15 [History Confirmed 07/20] Furosemide 20 mg [Lasix 20 mg] 1 tab PO UD 06/28/17 [History Confirmed ] Lisinopril [Zestril] 5 mg PO DAILY 06/28/17 [History Confirmed 07/20/18] Potassium Chloride 20 Meq [Klor-Con 20 MEQ] 1 tab PO DAILY 06/28/17 [History Confirmed 07/20/18] Carvedilol 12.5 mg [Coreg 12.5 mg] 12.5 mg PO BID 04/10/18 [History Confirmed 07/20/18] PANTOPRAZOLE 40 mg Tablet [Protonix 40MG Tablet] 40 mg PO QAM 04/10/18 [ History Confirmed 07/20/18] Hydrocodone Bit/Acetaminophen [Randolph 10-325 Tablet] 1 each PO Q6H PRN PRN #28 tablet 07/20/18 [Rx] Tamsulosin HCl 0.4 mg PO DAILY 07/20/18 [History Confirmed 07/20/18] Allergies/Adverse Reactions: Allergies Allergy/AdvReac Type Severity Reaction Status Date / Time amoxicillin [Amoxicillin] Allergy Intermediate Rash Verified 07/19/18 20:18 - Past Medical History Past Medical History: Yes Neurological History: No Pertinent History ENT History: No Pertinent History Cardiac History: Coronary Artery Disease, High Cholesterol, Myocardial Infarction ([place]) Respiratory History: No Pertinent History Endocrine Medical History: No Pertinent History Musculoskelatal History: Fractures GI Medical History: Diverticulitis, Diverticulosis History: No Pertinent History Pyscho-Social History: No Pertinent History Male Reproductive Disorders: No Pertinent History Comment: repeated shoulder dislocations - Past Surgical History Past Surgical History: Yes Neuro Surgical History: No Pertinent History Cardiac History: CABG, Cardiac Stent, Internal Defibrillator, Pacemaker Respiratory Surgery: No Pertinent History GI Surgical History: No Pertinent History Genitourinary Surgical Hx: No Pertinent History Musculskeletal Surgical Hx: Orthopedic Surgery Male Surgical History: No Pertinent History Other Surgical History: Right shoulder rotator cuff repair,, cardiac stent x one placed, pacemaker/defib. placed 2017. - Social History Smoking Status: Current every day smoker How long have you smoked: 45 years Exposure to second hand smoke: Yes Alcohol: Occasionally Drug Use: none - Physical Exam Vital Signs: Vital Signs - 24 hr Temp Pulse Resp BP Pulse Ox 07/20/18 08:34 92 L 07/20/18 07:43 98.5 F 125 H 18 135/67 92 L 07/20/18 05:04 96 07/20/18 03:00 97 07/20/18 02:47 97.9 F 75 16 153/74 97 07/20/18 01:38 71 18 144/88 95 07/20/18 00:52 69 18 142/87 95 07/20/18 00:21 100 07/19/18 22:50 73 20 141/81 97 07/19/18 21:55 71 18 142/83 97 07/19/18 20:53 76 20 126/75 98 07/19/18 20:40 81 20 129/79 98 07/19/18 19:53 97.3 F 75 18 135/60 100 General Appearance: no apparent distress, alert Respiratory Exam: normal breath sounds, lungs clear, other (large right lateral chest wall area of swelling, tender to palpation. lung sounds clear), No respiratory distress Cardiovascular Exam: regular rate/rhythm, normal heart sounds, normal peripheral pulses Gastrointestinal/Abdomen Exam: soft, normal bowel sounds, No tenderness, No mass Back Exam: normal inspection, normal range of motion, No CVA tenderness, No vertebral tenderness Extremity Exam: normal inspection, normal range of motion, pelvis stable Results - Labs Lab/Micro Results: Lab Results-Last 24 Hours 07/19/18 07/19/18 07/20/18 Range/Units 21:00 21:00 05:15 WBC 11.8 H 8.9 (4.0-10.5) K/mm3 RBC 3.55 L 3.27 L (4.1-5.6) M/mm3 Hgb 11.7 L 10.6 L (12.5-18.0) gm/dl Hct 36.9 L 33.8 L (42-50) % MCV 103.9 H 103.4 H (78-100) fl MCH 32.9 H 32.4 H (26-32) pg MCHC 31.7 L 31.4 L (32-36) g/dl RDW 14.5 H 14.0 (11.5-14.0) % Plt Count 413 367 (150-450) K/mm3 MPV 10.2 H 10.0 H (6-9.5) fl Gran % 58.7 58.3 (36.0-66.0) % Eos # (Auto) 0.62 H 0.57 H (0-0.5) Absolute Lymphs (auto) 3.13 2.14 (1.0-4.6) Absolute Monos (auto) 1.07 1.00 (0.0-1.3) Lymphocytes % 26.6 23.9 L (24.0-44.0) % Monocytes % 9.1 11.2 (0.0-12.0) % Eosinophils % 5.3 H 6.4 H (0.00-5.0) % Basophils % 0.3 0.2 (0.0-0.4) % Absolute Granulocytes 6.91 H 5.21 (1.4-6.9) Basophils # 0.03 0.02 (0-0.4) Sodium 141 (137-145) mmol/L Potassium 4.1 (3.5-5.1) mmol/L Chloride 108 H (98-107) mmol/L Carbon Dioxide 24 (22-30) mmol/L Anion Gap 13.5 (5-15) MEQ/L BUN 18 (9-20) mg/dL Creatinine 0.96 (0.66-1.25) mg/dL Estimated GFR > 60.0 ML/MIN Glucose 74 (74-106) mg/dL Calcium 9.4 (8.4-10.2) mg/dL Total Bilirubin 0.30 (0.2-1.3) mg/dL AST 25 (17-59) U/L ALT 19 (0-50) U/L Alkaline Phosphatase 100 (38-126) U/L Serum Total Protein 7.2 (6.3-8.2) g/dL Albumin 4.1 (3.5-5.0) g/dL - Radiology Impressions Radiology Exams & Impressions: Radiology Procedures Category Date Time Status CHEST WITHOUT CONTRAST [CT] Stat Exams 07/19/18 20:08 Completed UPPER EXTREMITY W/O CONTRAST [CT] Stat Exams 07/19/18 20:09 Completed Assessment/Plan (1) Rib fractures Current Visit: Yes Status: Acute Assessment & Plan: will treat pain, advised to stay mobile and breath deeply etc Code(s): S22.39XA - FRACTURE OF ONE RIB, UNSP SIDE, INIT FOR CLOS FX (2) Hematoma of right chest wall Current Visit: Yes Status: Acute Assessment & Plan: stable at this time, hold anticoagulants and followup with Dr Michel Code(s): S20.211A - CONTUSION OF RIGHT FRONT WALL OF THORAX, INITIAL ENCOUNTER Hospital Summary - Vitals & Intake/Output Vital Signs: Vital Signs Temperature 98.5 F 07/20/18 07:43 Pulse Rate 125 H 07/20/18 07:43 Respiratory Rate 18 07/20/18 07:43 Blood Pressure 135/67 07/20/18 07:43 O2 Sat by Pulse Oximetry 92 L 07/20/18 08:34 Intake & Output: Intake & Output 07/17/18 07/18/18 07/19/18 07/20/18 11:59 11:59 11:59 11:59 Intake Total 360 Balance 360 Weight 61.4 kg - Lab Result Diagrams: 07/20/18 05:15 07/19/18 21:00 Lab Results-Last 24 Hrs: Lab Results-Last 24 Hours 07/19/18 07/19/18 07/20/18 Range/Units 21:00 21:00 05:15 WBC 11.8 H 8.9 (4.0-10.5) K/mm3 RBC 3.55 L 3.27 L (4.1-5.6) M/mm3 Hgb 11.7 L 10.6 L (12.5-18.0) gm/dl Hct 36.9 L 33.8 L (42-50) % MCV 103.9 H 103.4 H (78-100) fl MCH 32.9 H 32.4 H (26-32) pg MCHC 31.7 L 31.4 L (32-36) g/dl RDW 14.5 H 14.0 (11.5-14.0) % Plt Count 413 367 (150-450) K/mm3 MPV 10.2 H 10.0 H (6-9.5) fl Gran % 58.7 58.3 (36.0-66.0) % Eos # (Auto) 0.62 H 0.57 H (0-0.5) Absolute Lymphs (auto) 3.13 2.14 (1.0-4.6) Absolute Monos (auto) 1.07 1.00 (0.0-1.3) Lymphocytes % 26.6 23.9 L (24.0-44.0) % Monocytes % 9.1 11.2 (0.0-12.0) % Eosinophils % 5.3 H 6.4 H (0.00-5.0) % Basophils % 0.3 0.2 (0.0-0.4) % Absolute Granulocytes 6.91 H 5.21 (1.4-6.9) Basophils # 0.03 0.02 (0-0.4) Sodium 141 (137-145) mmol/L Potassium 4.1 (3.5-5.1) mmol/L Chloride 108 H (98-107) mmol/L Carbon Dioxide 24 (22-30) mmol/L Anion Gap 13.5 (5-15) MEQ/L BUN 18 (9-20) mg/dL Creatinine 0.96 (0.66-1.25) mg/dL Estimated GFR > 60.0 ML/MIN Glucose 74 (74-106) mg/dL Calcium 9.4 (8.4-10.2) mg/dL Total Bilirubin 0.30 (0.2-1.3) mg/dL AST 25 (17-59) U/L ALT 19 (0-50) U/L Alkaline Phosphatase 100 (38-126) U/L Serum Total Protein 7.2 (6.3-8.2) g/dL Albumin 4.1 (3.5-5.0) g/dL - Radiology Exams Ordered Rad Exams-Entire Visit: Radiology Procedures Category Date Time Status CHEST WITHOUT CONTRAST [CT] Stat Exams 07/19/18 20:08 Completed UPPER EXTREMITY W/O CONTRAST [CT] Stat Exams 07/19/18 20:09 Completed - Procedures and Test Procedures and Tests throughout Hospitalization: Therapy Orders & Screens 07/20/18 03:26 Smoking Cessation Education ONCE Comment: Diagnosis: Hematoma with rib fracture Smoking Status: Current every day smoker How long have you smoked: 45 years Have you smoked in the past 12 months: Yes Approximately how many cigarettes per day: 1 pack Do you dip or chew tobacco: No If,Former Smoker,when did you quit: OCTOBER 2011 - Discharge Disposition: Home, Self-Care Condition: Good Prescriptions: New Hydrocodone Bit/Acetaminophen [Randolph 10-325 Tablet] 1 each PO Q6H PRN PRN # 28 tablet PRN Reason: Pain Continue Simvastatin 40 mg [Zocor 40 mg] 40 mg PO DAILY Duloxetine HCl 30 mg [Cymbalta 30 MG Capsule] 30 mg PO DAILY Lisinopril [Zestril] 5 mg PO DAILY Furosemide 20 mg [Lasix 20 mg] 1 tab PO UD Potassium Chloride 20 Meq [Klor-Con 20 MEQ] 1 tab PO DAILY Carvedilol 12.5 mg [Coreg 12.5 mg] 12.5 mg PO BID PANTOPRAZOLE 40 mg Tablet [Protonix 40MG Tablet] 40 mg PO QAM Tamsulosin HCl 0.4 mg PO DAILY Discontinued Aspirin 81 gm Chew [Baby Aspirin 81 mg Chew] 81 mg PO DAILY #0 Rivaroxaban [Xarelto] 15 mg PO HS #0 Additional Instructions: hold aspirin and xarelto, take pain meds as needed. return for difficulty breathing or rapid enlargement of the area of the hematoma. see Dr Michel in office to f/u this week Follow up with: GAIL MICHEL [Primary Care Provider] - 1 Week
[2018-07-20 11:16] VITALS: BP 122/66; PULSE 84; O2SAT 94
[2018-07-20] MEDS ORDERED: Zestril 5 MG PO SCH (11:30)
[2018-07-20] MEDS ORDERED: Klor Con 10 MEQ PO SCH (11:30)
[2018-07-20] MEDS ORDERED: COREG 12.5 MG PO SCH (11:30)
[2018-07-20] MEDS ORDERED: Flomax 0.4 MG PO SCH (11:30)
[2018-07-20] MEDS ORDERED: LASIX 20 MG PO SCH ×2 (11:30)
[2018-07-20] MEDS ORDERED: Protonix 40MG Tablet PO SCH (11:30)
[2018-07-20] MEDS ORDERED: Cymbalta 30 MG Capsule PO SCH (11:30)
[2018-07-20] MEDS ORDERED: ZOCOR 20MG PO SCH (11:30)
[2018-07-21] MEDS ORDERED: NON-FORMULARY ITEM (Simvastatin 40 Mg [Zocor 40 Mg] 40 MG) PO SCH (10:00)
[2018-07-21] MEDS ORDERED: POTASSIUM CHLORIDE 20 MEQ PO SCH (10:00)
== END 2018-07-20 11:30 | disposition home or self-care (01) ==
LOC: ED 19:32 → MED SURG 07-20 02:05
PROVIDERS: ADMIT Family Medicine; ATTEND Family Medicine
DX: S22.31XA Fracture of one rib, right side, initial encounter for closed fracture (principal); S20.211A Contusion of right front wall of thorax, initial encounter; X50.0XXA Overexertion from strenuous movement or load, initial encounter; Z79.899 Other long term (current) drug therapy
CPT/HCPCS: 36000; 36415; 71250; 73200; 80053; 85025; 93005; 93268; 94762; 96360; 96361; 96374; 96375; 96376; 99285; G0378; J1170; J1200; J2270; J2405

== ENCOUNTER 2018-09-28 22:19 | Emergency (ER) | payer OTHER ==
[2018-09-28 22:38] VITALS: O2SAT 97
[2018-09-28] MEDS ORDERED: Sodium Chloride 0.9% 1000 ML 1,000 ML IV STA ×2 (22:41→23:47)
[2018-09-28] MEDS ORDERED: TYLENOL 325 MG PO STA (22:48)
[2018-09-28] MEDS ORDERED: Zofran 4 MG/2 ML VIAL IV ONE (22:49)
[2018-09-28] MEDS ORDERED: Sodium Chloride 0.9% 1000 ML 1,000 ML ONE ×2 (22:50→23:56)
[2018-09-28] MEDS ORDERED: Zofran 4 MG/2 ML VIAL ONE (22:50)
[2018-09-28] MEDS ORDERED: TYLENOL 325 MG ONE (22:50)
--- NOTE | 2018-09-28 23:03 | ERPHSYRPT ---
- History of Present Illness Time Seen by Provider: 09/28/18 22:55 Source: patient Exam Limitations: no limitations Patient Subjective Stated Complaint: pt reports 3 episodes of vomiting as well as diarrhea, headache, chills fever and cough. reports 2 others in the family with recent s/s. Triage Nursing Assessment: pt is aox3, pupils perrl, low grade fever at 100, pt radial pulses are strong and equal, pt is tachycardic at 118, cap refill < 3 seconds, pt skin hot to touch, abd soft non tender, bowel sounds present and normoactive x4, pt skin pink dry. headached to the occipital region of head. Physician History: 58-year-old white male arrives with complaint of vomiting diarrhea fever symptoms since today. Patient states his family member had similar symptoms and had been diagnosed with some type of the flu. He states he is coughing but not very much. Past medical history includes coronary artery disease, hyperlipidemia, high blood pressure, myocardial infarction, diverticulitis, diverticulosis, repeated shoulder dislocation. Past surgical history includes CABG, cardiac stent, internal defibrillator pacer, right shoulder rotator cuff, Social history positive tobacco use positive occasional alcohol use denies illicit drug use. Timing/Duration: today Severity: moderate Modifying Factors: Improves With: nothing Associated Symptoms: nausea, vomiting, cough (occasional cough), fever, headaches, malaise, No abdominal pain, No shortness of breath, No heartburn, No diaphoresis, No chills, No chest pain, No loss of appetite, No rash, No syncope , No seizure Allergies/Adverse Reactions: amoxicillin [Amoxicillin] Allergy (Intermediate, Verified 09/28/18 22:38) Rash Home Medications: Duloxetine HCl 30 mg [Cymbalta 30 MG Capsule] 30 mg PO DAILY 09/14/15 [ History] Simvastatin 40 mg [Zocor 40 mg] 40 mg PO DAILY 09/14/15 [History] Furosemide 20 mg [Lasix 20 mg] 1 tab PO UD 06/28/17 [History] Lisinopril [Zestril] 5 mg PO DAILY 06/28/17 [History] Potassium Chloride 20 Meq [Klor-Con 20 MEQ] 1 tab PO DAILY 06/28/17 [History] Carvedilol 12.5 mg [Coreg 12.5 mg] 12.5 mg PO BID 04/10/18 [History] PANTOPRAZOLE 40 mg Tablet [Protonix 40MG Tablet] 40 mg PO QAM 04/10/18 [ History] Tamsulosin HCl 0.4 mg PO DAILY 07/20/18 [History] Hx Tetanus, Diphtheria Vaccination/Date Given: Yes Hx Influenza Vaccination/Date Given: Yes Hx Pneumococcal Vaccination/Date Given: No Immunizations Up to Date: Yes - Review of Systems Constitutional: Fever, No Chills, No Fatigue, No Lethargy, No Malaise, No Night Sweats, No Weakness Eyes: No Symptoms Ears, Nose, & Throat: No Symptoms, No Ear Pain, No Ear Discharge, No Hearing Changes, No Tinnitus, No Nose Pain, No Nose Congestion, No Sinus Drainage, No Epistaxis, No Mouth Pain, No Mouth Swelling, No Loose Teeth, No Throat Pain, No Throat Swelling, No Hoarse, No Painful Swallowing, No Snoring, No Stridor Respiratory: Cough (occasional cough), No Cyanosis, No Dyspnea, No Dyspnea on Exertion (DOWELL), No Stridor, No Wheezing Cardiac: No Chest Pain, No Edema, No Syncope Abdominal/Gastrointestinal: Nausea, Vomiting, Diarrhea, No Abdominal Pain, No Constipation, No Hematemesis, No Hematochezia, No Melena, No Dysphagia, No Appetite Changes Genitourinary Symptoms: No Dysuria Musculoskeletal: No Back Pain, No Neck Pain Skin: No Rash Neurological: No Dizziness, No Focal Weakness, No Sensory Changes Psychological: No Symptoms Endocrine: No Symptoms All Other Systems: Reviewed and Negative - Past Medical History Pertinent Past Medical History: Yes Neurological History: No Pertinent History ENT History: No Pertinent History Cardiac History: Coronary Artery Disease, High Cholesterol, Myocardial Infarction ([place]) Respiratory History: No Pertinent History Endocrine Medical History: No Pertinent History Musculoskeletal History: Fractures GI Medical History: Diverticulitis, Diverticulosis History: No Pertinent History Psycho-Social History: No Pertinent History Male Reproductive Disorders: No Pertinent History Other Medical History: repeated shoulder dislocations - Past Surgical History Past Surgical History: Yes Neuro Surgical History: No Pertinent History Cardiac: CABG, Cardiac Stent, Internal Defibrillator, Pacemaker Respiratory: No Pertinent History Gastrointestinal: No Pertinent History Genitourinary: No Pertinent History Musculoskeletal: Orthopedic Surgery Male Surgical History: No Pertinent History Other Surgical History: Right shoulder rotator cuff repair,, cardiac stent x one placed, pacemaker/defib. placed 2017. - Social History Smoking Status: Current every day smoker How long have you smoked: 45 years Exposure to second hand smoke: Yes Drug Use: none Patient Lives Alone: No - Nursing Vital Signs Nursing Vital Signs: Initial Vital Signs Temperature 100.4 F 09/28/18 22:27 Pulse Rate 118 H 09/28/18 22:27 Respiratory Rate 20 09/28/18 22:27 Blood Pressure 142/92 09/28/18 22:27 O2 Sat by Pulse Oximetry 97 09/28/18 22:27 Pain Scale Pain Intensity 5 - Physical Exam General Appearance: no apparent distress, alert Eye Exam: PERRL/EOMI, eyes nml inspection, other (fundi are unremarkable) Ears, Nose, Throat Exam: normal ENT inspection, TMs normal, pharynx normal, moist mucous membranes Neck Exam: normal inspection, non-tender, supple, full range of motion Respiratory Exam: normal breath sounds, lungs clear, No respiratory distress Cardiovascular Exam: normal heart sounds, normal peripheral pulses, tachycardia , capillary refill <2 sec Gastrointestinal/Abdomen Exam: soft, normal bowel sounds, No tenderness, No mass Back Exam: normal inspection, normal range of motion, No CVA tenderness, No vertebral tenderness Extremity Exam: normal inspection, normal range of motion, pelvis stable Neurologic Exam: alert, oriented x 3, cooperative, stem mounter II-XII nml as tested, normal mood/affect, nml cerebellar function, nml station & gait, sensation nml, No motor deficits Skin Exam: normal color, warm, dry, No rash SpO2 Interpretation: normal (97%) SpO2: 97 - Course Nursing assessment & vital signs reviewed: Yes EKG Interpreted by Me: RATE (93 bpm), Sinus Rhythm, NORMAL AXIS, Other (EKG: Sinus rhythm, 93 bpm, normal axis, no acute ST or T wave changes) - Radiology Exams Chest X-ray Interpretation: Interpreted by me (no acute disease process noted) Ordered Tests: Active Orders 24 hr Category Date Time Status EKG-ER Only STAT Care 09/28/18 23:49 Active IV Insertion STAT Care 09/28/18 22:45 Active CHEST 1 VIEW (PORTABLE) Stat Exams 09/28/18 23:03 Taken BLOOD CULTURE Stat Lab 09/28/18 23:01 Received CBC W DIFF Stat Lab 09/28/18 22:59 Completed CMP Stat Lab 09/28/18 22:59 Completed UA W/RFX UR CULTURE Stat Lab 09/28/18 23:13 Completed Medication Summary Discontinued Medications Generic Name Dose Route Start Last Admin Trade Name Ender PRN Reason Stop Dose Admin Acetaminophen 975 mg 09/28/18 22:48 09/28/18 22:58 Tylenol 325 Mg PO 09/28/18 22:49 975 mg STAT STA Administration Acetaminophen Confirm 09/28/18 22:50 Tylenol 325 Mg Administered 09/28/18 22:51 Dose 975 mg .ROUTE .STK-MED ONE Hydrocodone Bitart/Acetaminophen 1 tab 09/28/18 23:59 09/29/18 00:04 [place] 5/325 Mg PO 09/29/18 00:00 1 tab STAT ONE Administration Hydrocodone Bitart/Acetaminophen Confirm 09/29/18 00:03 [place] 5/325 Mg Administered 09/29/18 00:04 Dose 1 tab .ROUTE .STK-MED ONE Hydrocodone Bitart/Acetaminophen 2 tab 09/29/18 01:01 [place] 5/325 Mg PO 09/29/18 01:02 SENT HOME W/ PATIENT ONE Sodium Chloride 1,000 mls @ 999 mls/hr 09/28/18 22:41 09/29/18 00:01 Sodium Chloride 0.9% 1000 Ml IV 09/28/18 23:41 Infused .Q1H1M STA Infusion Sodium Chloride Confirm 09/28/18 22:50 Sodium Chloride 0.9% 1000 Ml Administered 09/28/18 22:51 Dose 1,000 mls @ ud .ROUTE .STK-MED ONE Sodium Chloride 1,000 mls @ 999 mls/hr 09/28/18 23:47 09/29/18 01:05 Sodium Chloride 0.9% 1000 Ml IV 09/29/18 00:47 Infused .Q1H1M STA Infusion Sodium Chloride Confirm 09/28/18 23:56 Sodium Chloride 0.9% 1000 Ml Administered 09/28/18 23:57 Dose 1,000 mls @ ud .ROUTE .STK-MED ONE Ondansetron HCl 4 mg 09/28/18 22:49 09/28/18 22:58 Zofran 4 Mg/2 Ml Vial IV 09/28/18 22:50 4 mg STAT ONE Administration Ondansetron HCl Confirm 09/28/18 22:50 Zofran 4 Mg/2 Ml Vial Administered 09/28/18 22:51 Dose 4 mg .ROUTE .STK-MED ONE Ondansetron HCl 4 mg 09/29/18 01:02 Zofran Odt 4 Mg PO 09/29/18 01:03 STAT ONE Lab/Rad Data: Laboratory Result Diagrams 09/28/18 22:59 09/28/18 22:59 Laboratory Results 09/28/18 09/28/18 09/28/18 Range/Units 23:13 23:01 22:59 WBC (4.0-10.5) K/mm3 RBC (4.1-5.6) M/mm3 Hgb (12.5-18.0) gm/dl Hct (42-50) % MCV (78-100) fl MCH (26-32) pg MCHC (32-36) g/dl RDW (11.5-14.0) % Plt Count (150-450) K/mm3 MPV (6-9.5) fl Gran % (36.0-66.0) % Eos # (Auto) (0-0.5) Absolute Lymphs (auto) (1.0-4.6) Absolute Monos (auto) (0.0-1.3) Lymphocytes % (24.0-44.0) % Monocytes % (0.0-12.0) % Eosinophils % (0.00-5.0) % Basophils % (0.0-0.4) % Absolute Granulocytes (1.4-6.9) Basophils # (0-0.4) Sodium (137-145) mmol/L Potassium (3.5-5.1) mmol/L Chloride (98-107) mmol/L Carbon Dioxide (22-30) mmol/L Anion Gap (5-15) MEQ/L BUN (9-20) mg/dL Creatinine (0.66-1.25) mg/dL Estimated GFR ML/MIN Glucose (74-106) mg/dL Calcium (8.4-10.2) mg/dL Total Bilirubin (0.2-1.3) mg/dL AST (17-59) U/L ALT (0-50) U/L Alkaline Phosphatase (38-126) U/L Serum Total Protein (6.3-8.2) g/dL Albumin (3.5-5.0) g/dL Urine Color YELLOW (YELLOW) Urine Appearance CLEAR (CLEAR) Urine pH 5.0 (5-6) Ur Specific [place] 1.019 (1.005-1.025) Urine Protein NEGATIVE (Negative) Urine Ketones TRACE (NEGATIVE) Urine Blood LARGE (0-5) Benjamin/ul Urine Nitrite NEGATIVE (NEGATIVE) Urine Bilirubin NEGATIVE (NEGATIVE) Urine Urobilinogen NEGATIVE (0-1) mg/dL Ur Leukocyte Esterase NEGATIVE (NEGATIVE) Urine WBC (Auto) 0-2 (0-5) /HPF Urine RBC (Auto) 3-5 (0-2) /HPF U Epithel Cells (Auto) NONE (FEW) /HPF Urine Bacteria (Auto) NONE (NEGATIVE) /HPF Urine Mucus (Auto) SLIGHT (NEGATIVE) /HPF Urine Culture Reflexed NO (NO) Urine Glucose NEGATIVE (NEGATIVE) mg/dL Influenza Type A Ag NEGATIVE (NEGATIVE) Influenza Type B Ag NEGATIVE (NEGATIVE) RSV (PCR) NEGATIVE (Negative) Group A Strep Antibody NEGATIVE (NEGATIVE) 09/28/18 09/28/18 Range/Units 22:59 22:59 WBC 10.8 H (4.0-10.5) K/mm3 RBC 4.00 L (4.1-5.6) M/mm3 Hgb 13.2 (12.5-18.0) gm/dl Hct 39.7 L (42-50) % MCV 99.3 (78-100) fl MCH 33.0 H (26-32) pg MCHC 33.2 (32-36) g/dl RDW 16.3 H (11.5-14.0) % Plt Count 356 (150-450) K/mm3 MPV 9.7 H (6-9.5) fl Gran % 84.0 H (36.0-66.0) % Eos # (Auto) 0.14 (0-0.5) Absolute Lymphs (auto) 0.84 L (1.0-4.6) Absolute Monos (auto) 0.73 (0.0-1.3) Lymphocytes % 7.8 L (24.0-44.0) % Monocytes % 6.8 (0.0-12.0) % Eosinophils % 1.3 (0.00-5.0) % Basophils % 0.1 (0.0-0.4) % Absolute Granulocytes 9.06 H (1.4-6.9) Basophils # 0.01 (0-0.4) Sodium 135 L (137-145) mmol/L Potassium 4.4 (3.5-5.1) mmol/L Chloride 104 (98-107) mmol/L Carbon Dioxide 21 L (22-30) mmol/L Anion Gap 14.2 (5-15) MEQ/L BUN 21 H (9-20) mg/dL Creatinine 0.91 (0.66-1.25) mg/dL Estimated GFR > 60.0 ML/MIN Glucose 108 H (74-106) mg/dL Calcium 9.1 (8.4-10.2) mg/dL Total Bilirubin 0.50 (0.2-1.3) mg/dL AST 29 (17-59) U/L ALT 23 (0-50) U/L Alkaline Phosphatase 99 (38-126) U/L Serum Total Protein 7.8 (6.3-8.2) g/dL Albumin 4.3 (3.5-5.0) g/dL Urine Color (YELLOW) Urine Appearance (CLEAR) Urine pH (5-6) Ur Specific [place] (1.005-1.025) Urine Protein (Negative) Urine Ketones (NEGATIVE) Urine Blood (0-5) Benjamin/ul Urine Nitrite (NEGATIVE) Urine Bilirubin (NEGATIVE) Urine Urobilinogen (0-1) mg/dL Ur Leukocyte Esterase (NEGATIVE) Urine WBC (Auto) (0-5) /HPF Urine RBC (Auto) (0-2) /HPF U Epithel Cells (Auto) (FEW) /HPF Urine Bacteria (Auto) (NEGATIVE) /HPF Urine Mucus (Auto) (NEGATIVE) /HPF Urine Culture Reflexed (NO) Urine Glucose (NEGATIVE) mg/dL Influenza Type A Ag (NEGATIVE) Influenza Type B Ag (NEGATIVE) RSV (PCR) (Negative) Group A Strep Antibody (NEGATIVE) - Progress Progress: improved Progress Note: 09/29/18 01:04 58-year-old white male arrives with complaint of nausea and vomiting diarrhea since tonight. He states he had a fever states he had a headache. Patient states he was with a child on pediatrics at [facility] with similar symptoms. Patient with a mild increased temperature to 100.4;. Patient was a tachycardic on arrival He is improved after receiving Tylenol, [place], and a 2 L of normal saline. Patient's vitals are stable he still has somewhat of a headache Will send patient home with 2 [place] tablets he states that he has tramadol which was prescribed to him by Dr. Michel several days ago. Will also give the patient Zofran. Patient is to return home plenty of fluids and Zofran. And [place] provided as directed. Patient's EKG sinus rhythm 93 beats per minute normal axis no acute ST or T wave changes. Patient's strep is negative influenza is negative urinalysis remarkable for a trace of ketones otherwise negative chemistry essentially normal CBC white blood cell 10.8 hemoglobin 13.2 hematocrit 39.7 platelets 356 . Impression nausea and vomiting. Headache. Viral syndrome. - Departure Departure Disposition: Home Clinical Impression: Viral syndrome Nausea and vomiting Qualifiers: Vomiting type: unspecified Vomiting Intractability: non-intractable Qualified Code(s): R11.2 - Nausea with vomiting, unspecified Headache Qualifiers: Headache type: unspecified Headache chronicity pattern: unspecified pattern Intractability: not intractable Qualified Code(s): R51 - Headache Condition: Fair Critical Care Time: No Referrals: GAIL MICHEL [Primary Care Provider] - Additional Instructions: Return home, Plenty of fluids, [place] one every 4-6 hours as needed for pain you have been given 2 of these, Tramadol as prescribed by Dr. Michel, Zofran 4 mg sublingually every 6 hours as needed for nausea and vomiting, Follow-up with Dr. Michel if symptoms are worse no better tomorrow or persist longer than 48 hours, Return for acute distress or for severe symptoms, Tylenol every 4 hours as needed for temperature greater than 100.5 (do not double up the Tylenol in [place] with [id number] Tylenol) do not exceed the recommended dosage of 4 g of Tylenol per day total. Prescriptions: Ondansetron ODT 4 MG [Zofran Odt 4 mg] 4 mg PO Q6H PRN PRN #10 tab.rapdis PRN Reason: nausea and vomiting
[2018-09-28 23:05] LABS: BASOPHIL % 0.1 % (0.0-0.4); Basophil (Absolute #) 0.01 (0-0.4); Eosinophil % 1.3 % (0.00-5.0); Eosinophil (Absolute #) 0.14 (0-0.5); Granulocyte Absolute (ANC) 9.06 (1.4-6.9); Hematocrit 39.7 % (42-50); Hemoglobin 13.2 gm/dl (12.5-18.0); Lymphocyte (Absolute #) 0.84 (1.0-4.6); Lymphocytes % 7.8 % (24.0-44.0); Mean Cell Volume 99.3 fl (78-100); Mean Corpuscular Hgb Concent. 33.2 g/dl (32-36); Mean Platelet Volume 9.7 fl (6-9.5); Monocyte (Absolute #) 0.73 (0.0-1.3); Monocytes % 6.8 % (0.0-12.0); Platelet Count 356 K/mm3 (150-450); Red Cell Distribution Width 16.3 % (11.5-14.0); White Blood Count 10.8 K/mm3 (4.0-10.5)
[2018-09-28 23:23] LABS: ALBUMIN 4.3 g/dL (3.5-5.0); ALKALINE PHOSPHATASE 99 U/L (38-126); ANION GAP 14.2 MEQ/L (5-15); BLOOD UREA NITROGEN 21 mg/dL (9-20); CHLORIDE 104 mmol/L (98-107); Calcium 9.1 mg/dL (8.4-10.2); Carbon Dioxide 21 mmol/L (22-30); Creatinine 1 0.91 mg/dL (0.66-1.25); Glucose 108 mg/dL (74-106); Potassium 4.4 mmol/L (3.5-5.1); SGOT/AST 29 U/L (17-59); SGPT/ALT 23 U/L (0-50); SODIUM 135 mmol/L (137-145); Total Protein 7.8 g/dL (6.3-8.2)
[2018-09-28 23:27] LABS: Appearance CLEAR (CLEAR); Bilirubin NEGATIVE (NEGATIVE); Blood LARGE Ery/ul (0-5); Glucose NEGATIVE (NEGATIVE); Ketones TRACE (NEGATIVE); Leukocyte Esterase NEGATIVE (NEGATIVE); Mucus SLIGHT /HPF (NEGATIVE); Nitrite NEGATIVE (NEGATIVE); Protein,Urine Dip NEGATIVE (Negative); Specific Gravity 1.019 (1.005-1.025); Urobilinogen NEGATIVE mg/dL (0-1); WBC 0-2 /HPF (0-5)
[2018-09-28 23:40] LABS: INFLUENZA A NEGATIVE (NEGATIVE); INFLUENZA B NEGATIVE (NEGATIVE); RESPIRATORY SYNCTIAL VIRUS NEGATIVE (Negative)
[2018-09-28] MEDS ORDERED: NORCO 5/325 MG PO ONE (23:59)
[2018-09-29] MEDS ORDERED: NORCO 5/325 MG ONE ×2 (00:03→01:13)
[2018-09-29] MEDS ORDERED: NORCO 5/325 MG PO ONE (01:01)
[2018-09-29] MEDS ORDERED: ZOFRAN ODT 4 MG PO ONE (01:02)
[2018-09-29] MEDS ORDERED: ZOFRAN ODT 4 MG ONE (01:13)
[2018-09-29 01:26] VITALS: BP 114/66; PULSE 88
--- NOTE | 2018-09-29 08:53 | XRAY ---
Indication: Fever. Comparison: May 14, 2016. Portable chest demonstrates new right base infiltrate versus atelectasis. Remaining lungs clear with stable right upper lobe bullae. Heart is not enlarged with new left-sided AICD. Bony thorax intact again with mild degenerative changes. Impression: New right base infiltrate/atelectasis. Correlate clinically. Comment: Right lung finding not reported on preliminary interpretation by the ER clinician. Telephone report given to Dr. Sesay. At 0850 hrs. on September 29, 2018.
== END 2018-09-29 01:24 | disposition home or self-care (01) ==
LOC: ED 22:19
DX: B34.9 Viral infection, unspecified (principal); R11.2 Nausea with vomiting, unspecified; R51 Headache; E78.00 Pure hypercholesterolemia, unspecified; I25.810 Atherosclerosis of coronary artery bypass graft(s) without angina pectoris; I25.2 Old myocardial infarction; Z95.810 Presence of automatic (implantable) cardiac defibrillator; Z79.899 Other long term (current) drug therapy
CPT/HCPCS: 36000; 36415; 71045; 80053; 81001; 85025; 87040; 87631; 87651; 96360; 96361; 96374; 99284; J2405; Q0162; A9270-GY

== ENCOUNTER 2019-06-25 18:06 | Emergency (ER) | payer OTHER ==
[2019-06-25] MEDS ORDERED: NORCO 5/325 MG PO ONE (19:35)
[2019-06-25] MEDS ORDERED: NORCO 5/325 MG ONE (19:39)
--- NOTE | 2019-06-25 21:55 | ERPHSYRPT ---
- History of Present Illness Time Seen by Provider: 06/25/19 18:30 Source: family Exam Limitations: no limitations Patient Subjective Stated Complaint: Pt states "I tested positive for the flu on saturday and I was putting a roof on a house all day today and my joints hurt and my lungs are burning." Triage Nursing Assessment: Pt presented alert and oriented X 3, skin pwd Pt ambulates with an upright steady gait, able to speak in full complete sentences. PT in no apparent respiratory distress. Physician History: HAD 5 DAY COARSE OF TAMIFLU / AND AN ANTIBIOTIC --- SEEN LAST SATURDAY AT ANOTHER FACILITY POS: FLU POS: STRONG HX CAD --S/P CVABG 3V 7 YEars ago still 1 ppd sm,opker is on plaviox and xarelto - c/o a burning chest pain w/ o radiation neg: fever/chills Timing/Duration: today Cough Quality/Degree: dry cough Possible Cause: unknown cause Modifying Factors: Improves With: coughing Associated Symptoms: chills, chest pain/soreness, No fever International travel in last 2 weeks: No Allergies/Adverse Reactions: amoxicillin [Amoxicillin] Allergy (Intermediate, Verified 09/28/18 22:38) Rash Home Medications: Duloxetine HCl 30 mg [Cymbalta 30 MG Capsule] 30 mg PO DAILY 09/14/15 [ History] Simvastatin 40 mg [Zocor 40 mg] 40 mg PO DAILY 09/14/15 [History] Furosemide 20 mg [Lasix 20 mg] 1 tab PO UD 06/28/17 [History] Lisinopril [Zestril] 5 mg PO DAILY 06/28/17 [History] Potassium Chloride 20 Meq [Klor-Con 20 MEQ] 1 tab PO DAILY 06/28/17 [History] Carvedilol 12.5 mg [Coreg 12.5 mg] 12.5 mg PO BID 04/10/18 [History] PANTOPRAZOLE 40 mg Tablet [Protonix 40MG Tablet] 40 mg PO QAM 04/10/18 [ History] Tamsulosin HCl 0.4 mg PO DAILY 07/20/18 [History] Rivaroxaban [Xarelto] 15 mg PO HS 06/25/19 [History] Hx Tetanus, Diphtheria Vaccination/Date Given: Yes Hx Influenza Vaccination/Date Given: Yes Hx Pneumococcal Vaccination/Date Given: No Immunizations Up to Date: Yes - Review of Systems Constitutional: Fatigue, Malaise, No Fever, No Chills, No Lethargy, No Night Sweats Eyes: No Symptoms Ears, Nose, & Throat: Nose Congestion Respiratory: Cough, Dyspnea on Exertion (DOWELL) Cardiac: Chest Pain, No Edema, No Palpitations, No Syncope, No Orthopnea Abdominal/Gastrointestinal: No Symptoms Genitourinary Symptoms: No Symptoms Musculoskeletal: Arthralgias, Back Pain, Myalgias Skin: No Symptoms Neurological: No Dizziness Psychological: No Symptoms Endocrine: No Symptoms Hematologic/Lymphatic: No Symptoms Immunological/Allergic: No Symptoms All Other Systems: Reviewed and Negative - Past Medical History Pertinent Past Medical History: Yes Neurological History: No Pertinent History ENT History: No Pertinent History Cardiac History: Coronary Artery Disease, High Cholesterol, Myocardial Infarction ([place]) Respiratory History: No Pertinent History Endocrine Medical History: No Pertinent History Musculoskeletal History: Fractures GI Medical History: Diverticulitis, Diverticulosis History: No Pertinent History Psycho-Social History: No Pertinent History Male Reproductive Disorders: No Pertinent History Other Medical History: repeated shoulder dislocations - Past Surgical History Past Surgical History: Yes Neuro Surgical History: No Pertinent History Cardiac: CABG, Cardiac Stent, Internal Defibrillator, Pacemaker Respiratory: No Pertinent History Gastrointestinal: No Pertinent History Genitourinary: No Pertinent History Musculoskeletal: Orthopedic Surgery Male Surgical History: No Pertinent History Other Surgical History: Right shoulder rotator cuff repair,, cardiac stent x one placed, pacemaker/defib. placed 2017. - Social History Smoking Status: Current every day smoker How long have you smoked: years Exposure to second hand smoke: Yes Drug Use: none Patient Lives Alone: No - Nursing Vital Signs Nursing Vital Signs: Initial Vital Signs Temperature 97.8 F 06/25/19 18:06 Pulse Rate 80 06/25/19 18:06 Respiratory Rate 18 06/25/19 18:06 Blood Pressure 102/75 06/25/19 18:06 O2 Sat by Pulse Oximetry 98 06/25/19 18:06 Pain Scale Pain Intensity 10 - Physical Exam General Appearance: mild distress Eye Exam: PERRL/EOMI, eyes nml inspection Ears, Nose, Throat Exam: normal ENT inspection, moist mucous membranes, dry mucous membranes, other (jp: bilaterallyu) Neck Exam: non-tender, full range of motion, No meningismus, No mass, No Brudzinski, No Kernig's, No carotid bruit, No JVD, No limited range of motion, No lymphadenopathy Respiratory Exam: diminished breath sounds, crackles/rales (bases), wheezing ( end exp wheezes bases) Cardiovascular Exam: regular rate/rhythm, normal peripheral pulses, capillary refill <2 sec, No murmur, No friction rub Gastrointestinal/Abdomen Exam: soft, normal bowel sounds, No tenderness, No guarding, No rebound Rectal Exam: deferred Back Exam: normal range of motion, No vertebral tenderness, No rash, No decreased range of motion Extremity Exam: normal inspection, normal range of motion, pelvis stable, No calf tenderness Neurologic Exam: alert, oriented x 3, cooperative, truss designer II-XII nml as tested, normal mood/affect, nml cerebellar function, nml station & gait Skin Exam: normal color Lymphatic Exam: No adenopathy, No axilla node tender (L), No axilla node tender (R) SpO2 Interpretation: normal SpO2: 98 - Course Nursing assessment & vital signs reviewed: Yes EKG Interpreted by Me: RATE, Sinus Karlo, Non-specific ST Changes, Other (ekg#2 23:[address] elevation lead 2,3 avf acute ischemic changes ) Ordered Tests: Active Orders 24 hr Category Date Time Status IV Insertion STAT Care 06/25/19 21:54 Active IV Insertion-2nd Peripheral STAT Care 06/25/19 23:31 Active CHEST 1 VIEW (PORTABLE) Stat Exams 06/25/19 22:15 Taken KUB Stat Exams 06/25/19 21:55 Taken BMP Stat Lab 06/25/19 22:02 Completed CBC W DIFF Stat Lab 06/25/19 21:50 Completed Manual Differential NC Stat Lab 06/25/19 21:50 Completed NT PRO BNP Stat Lab 06/25/19 22:02 Completed TROPONIN Q3H Lab 06/25/19 Completed TROPONIN Q3H Lab 06/25/19 22:30 Received Medication Summary Generic Name Dose Route Start Last Admin Trade Name Freq PRN Reason Stop Dose Admin Sodium Chloride 1,000 mls @ 999 mls/hr 06/25/19 22:50 06/25/19 22:52 Sodium Chloride 0.9% 1000 Ml IV 06/25/19 23:50 999 mls/hr .Q1H1M STA Administration Norepinephrine 4,000 mcg/ 504 mls @ 37.8 mls/hr 06/25/19 23:33 Dextrose IV 07/25/19 23:32 .[id number] PRN SEVERE HYPOTENSION Protocol 5 MCG/MIN Discontinued Medications Generic Name Dose Route Start Last Admin Trade Name Jorgeq PRN Reason Stop Dose Admin Hydrocodone Bitart/Acetaminophen 1 tab 06/25/19 19:35 06/25/19 19:39 [place] 5/325 Mg PO 06/25/19 19:36 1 tab STAT ONE Administration Hydrocodone Bitart/Acetaminophen Confirm 06/25/19 19:39 [place] 5/325 Mg Administered 06/25/19 19:40 Dose 1 tab .ROUTE .STK-MED ONE Enoxaparin Sodium 60 mg 06/25/19 23:32 Enoxaparin Sodium SQ 06/25/19 23:33 STAT ONE Sodium Chloride Confirm 06/25/19 22:49 Sodium Chloride 0.9% 1000 Ml Administered 06/25/19 22:50 Dose 1,000 mls @ ud .ROUTE .STK-MED ONE Lab/Rad Data: Laboratory Result Diagrams 06/25/19 21:50 06/25/19 22:02 Laboratory Results 06/25/19 06/25/19 06/25/19 Range/Units Unknown 22:02 22:02 WBC (4.0-10.5) K/mm3 RBC (4.1-5.6) M/mm3 Hgb (12.5-18.0) gm/dl Hct (42-50) % MCV (78-100) fl MCH (26-32) pg MCHC (32-36) g/dl RDW (11.5-14.0) % Plt Count (150-450) K/mm3 MPV (6-9.5) fl Sodium 134 L (137-145) mmol/L Potassium 4.9 (3.5-5.1) mmol/L Chloride 103 (98-107) mmol/L Carbon Dioxide 24 (22-30) mmol/L Anion Gap 12.2 (5-15) MEQ/L BUN 23 H (9-20) mg/dL Creatinine 1.13 (0.66-1.25) mg/dL Estimated GFR > 60.0 ML/MIN Glucose 115 H (74-106) mg/dL Calcium 9.0 (8.4-10.2) mg/dL Troponin I < 0.012 (0.000-0.034) ng/mL NT-Pro-B Natriuret Pep 481 (0-900) pg/mL 06/25/19 Range/Units 21:50 WBC 11.8 H (4.0-10.5) K/mm3 RBC 3.51 L (4.1-5.6) M/mm3 Hgb 12.1 L (12.5-18.0) gm/dl Hct 36.1 L (42-50) % MCV 102.8 H (78-100) fl MCH 34.5 H (26-32) pg MCHC 33.5 (32-36) g/dl RDW 13.3 (11.5-14.0) % Plt Count 303 (150-450) K/mm3 MPV 10.3 H (6-9.5) fl Sodium (137-145) mmol/L Potassium (3.5-5.1) mmol/L Chloride (98-107) mmol/L Carbon Dioxide (22-30) mmol/L Anion Gap (5-15) MEQ/L BUN (9-20) mg/dL Creatinine (0.66-1.25) mg/dL Estimated GFR ML/MIN Glucose (74-106) mg/dL Calcium (8.4-10.2) mg/dL Troponin I (0.000-0.034) ng/mL NT-Pro-B Natriuret Pep (0-900) pg/mL - Progress Progress: re-examined Progress Note: 06/25/19 23:40 pos: new ekg changes second set tropI positive blood pressure improved with ns/bolus x 2 06/25/19 23:41 06/25/19 23:43 discussed resultys with family dr. Jung accepting patient in transfer er- er [id number] Blood Culture(s) Obtained: No - Departure Departure Disposition: Transfer Clinical Impression: Acute [place] Condition: Good Critical Care Time: Yes Critical Care Time(excluding separately billable procedures): Critical 75-104 mins (direct patient care/stabilizatin , discussion with transfer doctor and family memberts) Referrals: GAIL MONROY [Primary Care Provider] -
[2019-06-25 22:00] LABS: Hematocrit 36.1 % (42-50); Hemoglobin 12.1 gm/dl (12.5-18.0); Mean Cell Volume 102.8 fl (78-100); Mean Corpuscular Hemoglobin 34.5 pg (26-32); Mean Corpuscular Hgb Concent. 33.5 g/dl (32-36); Mean Platelet Volume 10.3 fl (6-9.5); Platelet Count 303 K/mm3 (150-450); Red Blood Count 3.51 M/mm3 (4.1-5.6); Red Cell Distribution Width 13.3 % (11.5-14.0); White Blood Count 11.8 K/mm3 (4.0-10.5)
[2019-06-25 22:06] LABS: ANION GAP 12.2 MEQ/L (5-15); BLOOD UREA NITROGEN 23 mg/dL (9-20); CHLORIDE 103 mmol/L (98-107); Carbon Dioxide 24 mmol/L (22-30); Creatinine 1 1.13 mg/dL (0.66-1.25); Glucose 115 mg/dL (74-106); Potassium 4.9 mmol/L (3.5-5.1); SODIUM 134 mmol/L (137-145)
[2019-06-25] MEDS ORDERED: Sodium Chloride 0.9% 1000 ML 1,000 ML ONE ×2 (22:49→23:38)
[2019-06-25] MEDS: Sodium Chloride 0.9% 1000 ML 1,000 ML IV STA ×2 (22:52→23:40)
[2019-06-25] MEDS ORDERED: ENOXAPARIN SODIUM SQ ONE ×2 (23:32→23:36)
[2019-06-25] MEDS ORDERED: LEVOPHED 4 MG/4 ML 4,000 MCG in Dextrose 5%/Water IV Soln. 500 ML 500 ML IV PRN (23:33)
[2019-06-25] MEDS ORDERED: Sodium Chloride 0.9% 1000 ML 1,000 ML IV STA ×2 (23:37→23:39)
[2019-06-25 23:54] VITALS: BP 95/63; PULSE 64; O2SAT 97
[2019-06-25 23:55] LABS: Eosinophil 2 % (0.00-3.0); Lymphocytes 18 % (24-44); Monocyte 15 % (0.0-12.0); Neutrophils 65 % (36.-66.); Platelet Estimate NORMAL (NORMAL); Total Cells Counted 100
[2019-06-25 23:56] LABS: Basophilic Stippling RARE; Toxic Granulation RARE
--- NOTE | 2019-06-26 09:21 | XRAY ---
Indication: Cough. Flu. Comparison: September 28, 2018. Portable chest is clear. Heart is not enlarged again with left AICD. Bony thorax intact again with mild degenerative changes, sternotomy wires, distal right clavicle resection, and old right 8/9 rib fractures. Impression: Nonacute chest with chronic features.
--- NOTE | 2019-06-26 09:22 | XRAY ---
Indication: Cough. Flu symptoms. Comparison: None KUB nonacute and nonobstructed with mild fecal debris predominantly in ascending and transverse colon. Solid organs and osseous structures unremarkable.
== END 2019-06-25 23:53 | disposition short-term general hospital (02) ==
LOC: ED 18:06
DX: I21.9 Acute myocardial infarction, unspecified (principal); Z95.810 Presence of automatic (implantable) cardiac defibrillator
CPT/HCPCS: 36000; 36415; 71045; 74018; 80048; 83880; 84484; 85025; 93005; 96360; 96361; 96372; 99285; 99291; 99292; J1650; A9270-GY

== ENCOUNTER 2020-02-21 13:23 | Emergency (ER) | payer OTHER ==
[2020-02-21] MEDS ORDERED: TORAdol 30 mg Injection IV ONE (13:55)
--- NOTE | 2020-02-21 13:57 | ERPHSYRPT ---
- History of Present Illness Time Seen by Provider: 02/21/20 13:45 Source: patient Exam Limitations: no limitations Patient Subjective Stated Complaint: pt here for left shouler out of place no injury, he states this has happened before Triage Nursing Assessment: pt alert, walked in, face mask on, has swelling and deformity to left shoulder, has strong radial pulse Physician History: Patient is a [id number] male who presents with a chief complaint of left shoulder pain that started just prior to arrival to the emergency department. The patient said he was sleeping on it when he awoke abruptly with pain and thinks he may have dislocated his left shoulder again. Of note, the patient has previously injured the left shoulder and has dislocated the same shoulder in the past and reports having chronic dislocations to the affected shoulder. He is followed up with his primary care provider. It is described as a sharp pain and is constant nonradiating and reportedly severe. He endorsed having limited active range of motion to the left shoulder and believes he may have dislocated the shoulder because he was experiencing pain in the past. He denies any numbness or tingling in the left hand or any weakness in the left hand. Timing/Duration: today Allergies/Adverse Reactions: amoxicillin [Amoxicillin] Allergy (Intermediate, Verified 02/21/20 13:46) Rash Home Medications: Duloxetine HCl 30 mg [Cymbalta 30 MG Capsule] 30 mg PO DAILY 09/14/15 [History] Simvastatin 40 mg [Zocor 40 mg] 40 mg PO DAILY 09/14/15 [History] Furosemide 20 mg [Lasix 20 mg] 1 tab PO UD 06/28/17 [History] Potassium Chloride 20 Meq [Klor-Con 20 MEQ] 1 tab PO DAILY 06/28/17 [History] lisinopriL [Zestril] 5 mg PO DAILY 06/28/17 [History] Carvedilol 12.5 mg [Coreg 12.5 mg] 12.5 mg PO BID 04/10/18 [History] PANTOPRAZOLE 40 mg Tablet [Protonix 40MG Tablet] 40 mg PO QAM 04/10/18 [History] Tamsulosin HCl 0.4 mg PO DAILY 07/20/18 [History] Rivaroxaban [Xarelto] 15 mg PO HS 06/25/19 [History] Hx Tetanus, Diphtheria Vaccination/Date Given: Yes Hx Influenza Vaccination/Date Given: Yes Hx Pneumococcal Vaccination/Date Given: Yes Immunizations Up to Date: Yes Travel Risk - International Travel Have you traveled outside of the country in past 3 weeks: No - Coronavirus Screening Are you exhibiting any of the following symptoms?: No Close contact with a COVID-19 positive Pt in past 14-21 Days: No - Review of Systems Constitutional: No Symptoms, No Fever, No Chills Respiratory: No Cough Cardiac: No Chest Pain Abdominal/Gastrointestinal: No Nausea, No Vomiting Musculoskeletal: Joint Swelling (Left shoulder pain and swelling), Other (Left shoulder pain ), No Deformity, No Fall, No Injury, No Joint Redness - Past Medical History Pertinent Past Medical History: Yes Neurological History: No Pertinent History ENT History: No Pertinent History Cardiac History: Coronary Artery Disease, High Cholesterol, Myocardial Infarction (VT) Respiratory History: No Pertinent History Endocrine Medical History: No Pertinent History Musculoskeletal History: Fractures GI Medical History: Diverticulitis, Diverticulosis History: No Pertinent History Psycho-Social History: No Pertinent History Male Reproductive Disorders: No Pertinent History Other Medical History: repeated shoulder dislocations - Past Surgical History Past Surgical History: Yes Neuro Surgical History: No Pertinent History Cardiac: CABG, Cardiac Stent, Internal Defibrillator, Pacemaker Respiratory: No Pertinent History Gastrointestinal: No Pertinent History Genitourinary: No Pertinent History Musculoskeletal: Orthopedic Surgery Male Surgical History: No Pertinent History Other Surgical History: Right shoulder rotator cuff repair,, cardiac stent x one placed, pacemaker/defib. placed 2017. - Social History Smoking Status: Current every day smoker How long have you smoked: years Exposure to second hand smoke: Yes Drug Use: none Patient Lives Alone: No - Nursing Vital Signs Nursing Vital Signs: Initial Vital Signs Temperature 98.0 F 02/21/20 13:41 Pulse Rate 71 02/21/20 13:41 Respiratory Rate 18 02/21/20 13:41 Blood Pressure 120/91 02/21/20 13:41 O2 Sat by Pulse Oximetry 100 02/21/20 13:41 Pain Scale Pain Intensity 8 - Physical Exam General Appearance: mild distress, alert Eye Exam: eyes nml inspection, No scleral icterus, No pale conjunctivae Neck Exam: normal inspection, non-tender, supple Respiratory Exam: normal breath sounds, lungs clear, airway intact, No chest tenderness, No respiratory distress Cardiovascular Exam: regular rate/rhythm, normal heart sounds, normal peripheral pulses, capillary refill <2 sec, other (Radial pulse 2+ bilaterally, Capillary refill brisk in all fingers of the L hand), No murmur, No friction rub, No gallop, No tachycardia, No pulse deficit Back Exam: normal inspection Extremity Exam: other (Tenderness and what appears to be an asymmetric swollen L deltoid. No crepitus or obvious deformity or void. ), No deformities Neurologic Exam: alert, oriented x 3, cooperative, other (Sensation intact in the left hand to gross touch in the ulnar, median, and radial nerve distribution as well as the lateral detoid. ) Skin Exam: normal color, warm, dry, No rash, No petechiae, No jaundice, No cyanosis, No diaphoresis SpO2 Interpretation: normal SpO2: 100 O2 Delivery: Room Air - Course Nursing assessment & vital signs reviewed: Yes - Radiology Exams Shoulder X-ray Interpretation: Reviewed by me, Teleradiologist Report, Other (Primary osteoarthritis. No fracture or dislocation) Ordered Tests: Active Orders 24 hr Category Date Time Status IV Insertion STAT Care 02/21/20 13:53 Completed SHOULDER Stat Exams 02/21/20 14:58 Completed Medication Summary Discontinued Medications Generic Name Dose Route Start Last Admin Trade Name Ender PRN Reason Stop Dose Admin Fentanyl Citrate 100 mcg 02/21/20 14:22 02/21/20 14:33 Sublimaze 100 Mcg/2 Ml IV 02/21/20 14:23 100 mcg STAT ONE Administration Fentanyl Citrate Confirm 02/21/20 14:32 Sublimaze 100 Mcg/2 Ml Administered 02/21/20 14:33 Dose 100 mcg .ROUTE .STK-MED ONE Ketorolac Tromethamine 15 mg 02/21/20 13:55 02/21/20 14:09 Toradol 30 Mg Injection IV 02/21/20 13:56 15 mg STAT ONE Administration Ketorolac Tromethamine Confirm 02/21/20 14:06 Toradol 30 Mg Injection Administered 02/21/20 14:07 Dose 30 mg .ROUTE .STK-MED ONE - Progress Progress: improved Progress Note: 02/21/20 14:24 I spoke to the patient's and discussed the case with her. She was able to provide transportation for the patient to get home if he received opiate pain meds and/or sedation. 02/21/20 14:44 Patient's XR reviewed and shows no evidence of dislocation. Plan to obtain lateral axial view for posterior dislocation. 02/21/20 14:48 Left shoulder pain could be secondary to a muscle spasm or arthritic component to the left shoulder joint. There was no evidence of dislocation on his x-rays which was confirmed by radiology. The patient was offered a sling but declined and ultimately was discharged home with instructions to follow-up with his primary care provider to inquire about the need for physical therapy. In the meantime, I will discharge him with a prescription for [place] in addition to tizanidine to take for pain relief. Counseled pt/family regarding: diagnosis, need for follow-up, rad results - Departure Departure Disposition: Home Clinical Impression: Shoulder pain, left Condition: Stable Critical Care Time: No Referrals: GAIL MONROY [Primary Care Provider] - Instructions: Shoulder Tendinopathy (DC) Prescriptions: Hydrocodone/APAP 5-325 Tab^^^ [[place] 5-325 Tablet^^^] 1 tab PO Q6HPRN PRN #10 tablet MDD 6 PRN Reason: Pain Tizanidine HCl 4 mg [Zanaflex 4 MG] 4 mg PO Q4-6HPRN PRN #20 tablet PRN Reason: Pain
[2020-02-21] MEDS ORDERED: TORAdol 30 mg Injection ONE (14:06)
[2020-02-21] MEDS ORDERED: SUBLIMAZE 100 MCG/2 ML IV ONE (14:22)
[2020-02-21] MEDS ORDERED: SUBLIMAZE 100 MCG/2 ML ONE (14:32)
[2020-02-21 14:46] VITALS: BP 153/68
[2020-02-21 15:50] VITALS: PULSE 79
--- NOTE | 2020-02-21 19:47 | XRAY ---
Indication: Pain. Comparison: None 3 view left shoulder demonstrates tiny medial humeral head spur, moderate AC degenerative arthropathy, left pacemaker, and sternotomy wires. No other bony, articular, or soft tissue abnormalities. Comment: Preliminary interpretation was made by [facility]. No critical discrepancy.
[2020-02-21 20:55] VITALS: O2SAT 100
== END 2020-02-21 15:40 | disposition home or self-care (01) ==
LOC: ED 13:23
DX: M25.512 Pain in left shoulder (principal); Z79.899 Other long term (current) drug therapy; I25.10 Atherosclerotic heart disease of native coronary artery without angina pectoris; E78.00 Pure hypercholesterolemia, unspecified; I25.2 Old myocardial infarction
CPT/HCPCS: 36000; 73030; 96374; 96375; 99284; J1885; J3010

== ENCOUNTER 2022-07-11 09:04 | Emergency (ER) | payer OTHER ==
[2022-07-11] MEDS ORDERED: BABY ASPIRIN 81 MG CHEW PO ONE (09:07)
--- NOTE | 2022-07-11 09:07 | ERPHSYRPT ---
- History of Present Illness Time Seen by Provider: 07/11/22 09:07 Historian: patient, family Exam Limitations: no limitations Physician History: This is a 62-year-old white male patient who continues to smoke and has a significant cardiac history disease including CABG and cardiac stents as well as pacemaker/defibrillator placement and presents with "knot" feeling with associated pressure that is nonradiating and is central and substernal. Patient states the symptoms are worse when he is swallowing but still present when he is not swallowing. He is not short of breath. He has no abdominal pain. Patient was diagnosed with COVID 19 infection sometime approximately 2 months ago. Since that time he has lost about 15 pounds per his report. Patient took all ks s medications this morning which includes Xarelto anticoagulation medication. He has a history of hypertension, hyperlipidemia, gastroesophageal reflux disease, and prostate issues. His corporate events director is out of [facility] in [facility] Dr. Malou Andrew. Other medical history obtained from the patient's daughter and from reviewing old charts at [facility] Timing/Duration: week(s) (1) Quality: pressure, other (knot sensation) Location: substernal, central Chest Pain Radiation: no radiation Severity of Pain-Max: moderate Severity of Pain-Current: moderate Modifying Factors: Improves With: other (Swallowing worsens) Associated Symptoms: No abdominal pain, No shortness of breath, No cough Prior Chest Pain/Cardiac Workup: cardiac cath, echocardiography, heart attack Nitro Today/Relief: no nitro taken today Aspirin Treatment Today: no aspirin today Allergies/Adverse Reactions: amoxicillin [Amoxicillin] Allergy (Intermediate, Verified 02/21/20 13:46) Rash bee venom protein (honey bee) Allergy (Verified 07/11/22 09:08) Home Medications: Duloxetine HCl 30 mg [Cymbalta 30 MG Capsule] 30 mg PO DAILY 09/14/15 [History] Simvastatin 40 mg [Zocor 40 mg] 40 mg PO DAILY 09/14/15 [History] Furosemide 20 mg [Lasix 20 mg] 1 tab PO UD 06/28/17 [History] Potassium Chloride 20 Meq [Klor-Con 20 MEQ] 1 tab PO DAILY 06/28/17 [History] lisinopriL [Zestril] 5 mg PO DAILY 06/28/17 [History] Carvedilol 12.5 mg [Coreg 12.5 mg] 12.5 mg PO BID 04/10/18 [History] PANTOPRAZOLE 40 mg Tablet [Protonix 40MG Tablet] 40 mg PO QAM 04/10/18 [History] Tamsulosin HCl 0.4 mg PO DAILY 07/20/18 [History] Rivaroxaban [Xarelto] 15 mg PO HS 06/25/19 [History] Hx Tetanus, Diphtheria Vaccination/Date Given: Yes Hx Influenza Vaccination/Date Given: Yes Hx Pneumococcal Vaccination/Date Given: Yes Travel Risk - International Travel Have you traveled outside of the country in past 3 weeks: No - Coronavirus Screening Are you exhibiting any of the following symptoms?: No Close contact with a COVID-19 positive Pt in past 14-21 Days: No - Review of Systems Constitutional: No Symptoms Eyes: No Symptoms Ears, Nose, & Throat: No Symptoms Respiratory: No Symptoms Cardiac: Chest Pain Abdominal/Gastrointestinal: No Symptoms Genitourinary Symptoms: No Symptoms Musculoskeletal: No Symptoms Skin: No Symptoms Neurological: No Symptoms Psychological: No Symptoms Endocrine: No Symptoms Hematologic/Lymphatic: No Symptoms Immunological/Allergic: No Symptoms All Other Systems: Reviewed and Negative - Past Medical History Pertinent Past Medical History: Yes Neurological History: No Pertinent History ENT History: No Pertinent History Cardiac History: Coronary Artery Disease, High Cholesterol, Myocardial Infarction (DE) Respiratory History: No Pertinent History Endocrine Medical History: No Pertinent History Musculoskeletal History: Fractures GI Medical History: Diverticulitis, Diverticulosis History: No Pertinent History Psycho-Social History: No Pertinent History Male Reproductive Disorders: No Pertinent History Other Medical History: repeated shoulder dislocations - Past Surgical History Past Surgical History: Yes Neuro Surgical History: No Pertinent History Cardiac: CABG, Cardiac Stent, Internal Defibrillator, Pacemaker Respiratory: No Pertinent History Gastrointestinal: No Pertinent History Genitourinary: No Pertinent History Musculoskeletal: Orthopedic Surgery Male Surgical History: No Pertinent History Other Surgical History: Right shoulder rotator cuff repair,, cardiac stent x one placed, pacemaker/defib. placed 2017. - Social History Smoking Status: Current every day smoker How long have you smoked: years Exposure to second hand smoke: Yes Drug Use: none Patient Lives Alone: No - Nursing Vital Signs Nursing Vital Signs: Initial Vital Signs Temperature 97.6 F 07/11/22 09:07 Pulse Rate 94 H 07/11/22 09:07 Respiratory Rate 16 07/11/22 09:07 Blood Pressure 145/88 07/11/22 09:07 O2 Sat by Pulse Oximetry 99 07/11/22 09:07 Pain Scale Pain Intensity 7 - Physical Exam General Appearance: no apparent distress, alert, anxiety, thin Eye Exam: PERRL/EOMI, eyes nml inspection Ears, Nose, Throat Exam: normal ENT inspection, moist mucous membranes Neck Exam: normal inspection, non-tender, supple, full range of motion Respiratory Exam: normal breath sounds, chest tenderness, lungs clear, airway intact, No respiratory distress Cardiovascular Exam: regular rate/rhythm, normal heart sounds, normal peripheral pulses Gastrointestinal/Abdomen Exam: soft, normal bowel sounds, No tenderness Rectal Exam: not done Back Exam: normal inspection, normal range of motion, No CVA tenderness, No vertebral tenderness Extremity Exam: normal inspection, normal range of motion, pelvis stable, other (Patient has strong palpable pedal pulses bilaterally) Neurologic Exam: alert, oriented x 3, cooperative, plant technician II-XII nml as tested, normal mood/affect, nml cerebellar function, nml station & gait, sensation nml Skin Exam: normal color, warm, dry Lymphatic Exam: No adenopathy SpO2 Interpretation: normal SpO2: 99 O2 Delivery: Room Air - Course Nursing assessment & vital signs reviewed: Yes EKG Interpreted by Me: RATE (94), Sinus Rhythm, NORMAL AXIS, prolonged QT interval, Non-specific ST Changes, Other (Only change from twelve-lead EKG that was compared to an performed on on 06/15/2019 is a prolonged QT interval. No acute ischemic changes on today's twelve-lead EKG. The EKG was interpreted by me) Ordered Tests: Active Orders 24 hr Category Date Time Status EKG-ER Only STAT Care 07/11/22 09:07 Active IV Insertion STAT Care 07/11/22 09:07 Active CHEST 1 VIEW (PORTABLE) Stat Exams 07/11/22 09:08 Completed CHEST WITHOUT CONTRAST [CT] Stat Exams 07/11/22 10:25 Completed CBC W DIFF Stat Lab 07/11/22 09:07 Completed CMP Stat Lab 07/11/22 09:17 Completed D-DIMER QUANTITATIVE Stat Lab 07/11/22 09:07 Completed NT PRO BNP Stat Lab 07/11/22 09:17 Completed TROPONIN Q4H Lab 07/11/22 09:17 Completed TROPONIN Q4H Lab 07/11/22 12:15 Completed TROPONIN Q4H Lab 07/11/22 17:15 Ordered Medication Summary Discontinued Medications Generic Name Dose Route Start Last Admin Trade Name Ender PRN Reason Stop Dose Admin Aspirin 324 mg 07/11/22 09:07 07/11/22 09:22 Aspirin 81 Mg Tab.Chew PO 07/11/22 09:08 324 mg STAT ONE Administration Morphine Sulfate 4 mg 07/11/22 09:21 07/11/22 09:24 Morphine Sulfate 4 Mg/Ml Injection IV 07/11/22 09:22 4 mg STAT ONE Administration Morphine Sulfate Confirm 07/11/22 09:23 Morphine Sulfate 4 Mg/Ml Injection Administered 07/11/22 09:24 Dose 4 mg .ROUTE .STK-MED ONE Morphine Sulfate 4 mg 07/11/22 12:15 07/11/22 12:33 Morphine Sulfate 4 Mg/Ml Injection IV 07/11/22 12:16 4 mg STAT ONE Administration Morphine Sulfate Confirm 07/11/22 12:31 Morphine Sulfate 4 Mg/Ml Injection Administered 07/11/22 12:32 Dose 4 mg .ROUTE .STK-MED ONE Ondansetron HCl 4 mg 07/11/22 09:21 07/11/22 09:24 Ondansetron Hcl 4 Mg/2 Ml Vial IV 07/11/22 09:22 4 mg STAT ONE Administration Ondansetron HCl Confirm 07/11/22 09:23 Ondansetron Hcl 4 Mg/2 Ml Vial Administered 07/11/22 09:24 Dose 4 mg .ROUTE .STK-MED ONE Potassium Chloride 20 meq 07/11/22 10:31 07/11/22 10:45 Potassium Chloride Tab 10 Meq Tab PO 07/11/22 10:32 20 meq STAT ONE Administration Potassium Chloride Confirm 07/11/22 10:45 Potassium Chloride Tab 10 Meq Tab Administered 07/11/22 10:46 Dose 20 meq PO .STK-MED ONE Lab/Rad Data: Laboratory Result Diagrams 07/11/22 09:07 07/11/22 09:17 Laboratory Results 07/11/22 07/11/22 07/11/22 Range/Units 12:15 09:17 09:17 WBC (4.0-10.5) x10^3/uL RBC (4.1-5.6) x10^6/uL Hgb (12.5-18.0) g/dL Hct (42-50) % MCV (78-100) fL MCH (26-32) pg MCHC (32-36) g/dL RDW (11.5-14.0) % Plt Count (150-450) x10^3/uL MPV (7.5-11.0) fL Gran % (36.0-66.0) % Immature Gran % (Auto) (0.00-0.4) % Nucleat RBC Rel Count (0.00-0.1) % Eos # (Auto) (0-0.5) x10^3/uL Immature Gran # (Auto) (0.00-0.03) x10^3u/L Absolute Lymphs (auto) (1.0-4.6) x10^3/uL Absolute Monos (auto) (0.0-1.3) x10^3/uL Absolute Nucleated RBC (0.00-0.01) x10^3u/L Lymphocytes % (24.0-44.0) % Monocytes % (0.0-12.0) % Eosinophils % (0.00-5.0) % Basophils % (0.0-0.4) % Absolute Granulocytes (1.4-6.9) x10^3/uL Basophils # (0-0.4) x10^3/uL D-Dimer (0.0-0.50) mg/L Sodium 143 (137-145) mmol/L Potassium 3.2 L (3.5-5.1) mmol/L Chloride 111 H (98-107) mmol/L Carbon Dioxide 26 (22-30) mmol/L Anion Gap 8.4 (5-15) MEQ/L BUN 18 (9-20) mg/dL Creatinine 0.92 (0.66-1.25) mg/dL Estimated GFR > 60.0 ML/MIN Glucose 97 (74-106) mg/dL Calcium 8.7 (8.4-10.2) mg/dL Total Bilirubin 0.30 (0.2-1.3) mg/dL AST 23 (17-59) U/L ALT 37 (0-50) U/L Alkaline Phosphatase 78 (38-126) U/L Troponin I 0.012 0.014 (0.000-0.034) ng/mL NT-Pro-B Natriuret Pep 1830 H (0-900) pg/mL Serum Total Protein 6.1 L (6.3-8.2) g/dL Albumin 3.6 (3.5-5.0) g/dL 07/11/22 07/11/22 Range/Units 09:07 09:07 WBC 10.4 (4.0-10.5) x10^3/uL RBC 2.78 L (4.1-5.6) x10^6/uL Hgb 10.2 L (12.5-18.0) g/dL Hct 31.9 L (42-50) % MCV 114.7 H (78-100) fL MCH 36.7 H (26-32) pg MCHC 32.0 (32-36) g/dL RDW 16.5 H (11.5-14.0) % Plt Count 213 (150-450) x10^3/uL MPV 8.8 (7.5-11.0) fL Gran % 72.3 H (36.0-66.0) % Immature Gran % (Auto) 1.2 H (0.00-0.4) % Nucleat RBC Rel Count 0.0 (0.00-0.1) % Eos # (Auto) 0.10 (0-0.5) x10^3/uL Immature Gran # (Auto) 0.13 H (0.00-0.03) x10^3u/L Absolute Lymphs (auto) 1.58 (1.0-4.6) x10^3/uL Absolute Monos (auto) 1.03 (0.0-1.3) x10^3/uL Absolute Nucleated RBC 0.00 (0.00-0.01) x10^3u/L Lymphocytes % 15.2 L (24.0-44.0) % Monocytes % 9.9 (0.0-12.0) % Eosinophils % 1.0 (0.00-5.0) % Basophils % 0.4 (0.0-0.4) % Absolute Granulocytes 7.53 H (1.4-6.9) x10^3/uL Basophils # 0.04 (0-0.4) x10^3/uL D-Dimer 0.29 (0.0-0.50) mg/L Sodium (137-145) mmol/L Potassium (3.5-5.1) mmol/L Chloride (98-107) mmol/L Carbon Dioxide (22-30) mmol/L Anion Gap (5-15) MEQ/L BUN (9-20) mg/dL Creatinine (0.66-1.25) mg/dL Estimated GFR ML/MIN Glucose (74-106) mg/dL Calcium (8.4-10.2) mg/dL Total Bilirubin (0.2-1.3) mg/dL AST (17-59) U/L ALT (0-50) U/L Alkaline Phosphatase (38-126) U/L Troponin I (0.000-0.034) ng/mL NT-Pro-B Natriuret Pep (0-900) pg/mL Serum Total Protein (6.3-8.2) g/dL Albumin (3.5-5.0) g/dL - Progress Progress: improved, re-examined Air Movement: good Progress Note: 07/11/22 10:07 Chest x-ray was reviewed by me there is no evidence of any acute cardiopulmonary processes or abnormalities 07/11/22 11:04 CT chest without contrast shows pulmonary emphysema and chronic atelectasis with scarring present. There is no evidence of any tumors or masses. There is no evidence of any aortic aneurysm. 07/11/22 12:46 Medical decision making: I did contact the patient's corporate events director Dr. Malou Andrew out of [facility]. I reviewed the patient history, current complaint and the results of the physical exam with him. I also reviewed the EKG findings and the lab results. I also discussed with him the results of the patient's chest x-ray, CT scan of the chest and soft tissue of the neck. Dr. Andrew states that if the repeat, 3-hour troponin is not significantly elevated (meaning not doubled in increase) we can let the patient go home. Patient is to call Dr. Malou Andrew's office to make arrangements to be seen in the next couple of days. However, if the second troponin is elevated double or more we are to call Dr. Andrew back to make arrangements for transfer. 07/11/22 13:27 Patient's symptoms have improved. His repeat troponin is within normal limits. Patient be discharged to home. Blood Culture(s) Obtained: No Antibiotics given: No Counseled pt/family regarding: lab results, diagnosis, rad results - Departure Departure Disposition: Home Clinical Impression: Chest pain, Difficulty swallowing Condition: Stable Critical Care Time: No Referrals: GAIL MONROY [Primary Care Provider] - Follow up/PCP as directed Additional Instructions: Drink plenty of fluids and advance your diet slowly. Take all your medications as prescribed. Call Dr. Malou Andrew, your corporate events director, today to make arrangements for a follow-up appointment in 2 to 3 days. Prescriptions: Hydrocodone/APAP 5/325 [Joseph 5/325 mg] 1 each PO Q8H PRN PRN #6 tablet MDD 3 PRN Reason: Pain
[2022-07-11] MEDS ORDERED: MORPHINE SULFATE 4 MG INJ IV ONE ×2 (09:21→12:15)
[2022-07-11] MEDS ORDERED: Zofran 4 MG/2 ML VIAL IV ONE (09:21)
[2022-07-11] MEDS ORDERED: Zofran 4 MG/2 ML VIAL ONE (09:23)
[2022-07-11] MEDS ORDERED: MORPHINE SULFATE 4 MG INJ ONE ×2 (09:23→12:31)
[2022-07-11 09:34] LABS: Absolute Neutrophil Ct (ANC) 7.53 x10^3/uL (1.4-6.9); Basophil (Absolute #) 0.04 x10^3/uL (0-0.4); Hematocrit 31.9 % (42-50); Hemoglobin 10.2 g/dL (12.5-18.0); Lymphocyte (Absolute #) 1.58 x10^3/uL (1.0-4.6); Lymphocytes % 15.2 % (24.0-44.0); Mean Cell Volume 114.7 fL (78-100); Mean Corpuscular Hemoglobin 36.7 pg (26-32); Mean Platelet Volume 8.8 fL (7.5-11.0); Monocyte (Absolute #) 1.03 x10^3/uL (0.0-1.3); Monocytes % 9.9 % (0.0-12.0); Neutrophil % 72.3 % (36.0-66.0); Platelet Count 213 x10^3/uL (150-450); Red Blood Count 2.78 x10^6/uL (4.1-5.6); Red Cell Distribution Width 16.5 % (11.5-14.0); White Blood Count 10.4 x10^3/uL (4.0-10.5)
--- NOTE | 2022-07-11 09:50 | XRAY ---
Indication: Chest pain. Comparison: June 25, 2019 Portable chest remains inflated and clear. Heart not enlarged again with CABG and left AICD. Bony thorax intact again with mild degenerative changes, sternotomy wires, and old right rib fractures. Impression: Continued nonacute chest with chronic features.
[2022-07-11 09:58] LABS: ALBUMIN 3.6 g/dL (3.5-5.0); ALKALINE PHOSPHATASE 78 U/L (38-126); ANION GAP 8.4 MEQ/L (5-15); BLOOD UREA NITROGEN 18 mg/dL (9-20); CHLORIDE 111 mmol/L (98-107); Calcium 8.7 mg/dL (8.4-10.2); Carbon Dioxide 26 mmol/L (22-30); Creatinine 1 0.92 mg/dL (0.66-1.25); EST GLOMERULAR FILTRATION RATE > 60.0 ML/MIN; Glucose 97 mg/dL (74-106); NT PRO BNP 1830 pg/mL (0-900); Potassium 3.2 mmol/L (3.5-5.1); SGOT/AST 23 U/L (17-59); SGPT/ALT 37 U/L (0-50); SODIUM 143 mmol/L (137-145); Total Protein 6.1 g/dL (6.3-8.2)
[2022-07-11] MEDS ORDERED: Klor Con PO ONE ×2 (10:31→10:45)
--- NOTE | 2022-07-11 10:44 | XRAY ---
Indication: Chest pain and weakness. Weight loss. Multiple contiguous axial images obtained through the chest without contrast. Comparison: July 19, 2018 Lungs again demonstrate mild pulmonary emphysema, biapical subpleural cystic changes, scattered fibrosis/scarring, and mild bibasilar subsegmental atelectasis/scarring. No new pulmonary mass/nodule, infiltrate, effusion, or pneumothorax. Heart not enlarged again with CABG and left AICD. Aorta is normal in course and caliber. Stable incidental tiny mediastinal and right hilar calcified nodes. No pathologic mediastinal lymphadenopathy. Bony thorax intact again with mild degenerative changes throughout the spine, sternotomy wires, and old right 8/9 rib fractures. Limited upper abdomen again demonstrates tiny splenic calcified granulomas. Incidental partially visualized 4 cm left mid renal cyst not previously included in [id number]. Impression: 1. Stable pulmonary emphysema, scattered atelectasis/scarring, post surgical changes, chronic bony findings, and old granulomatous disease. 2. Incidental 4 cm left renal cyst unchanged compared to March 20, [address] chest without contrast exam is negative.
[2022-07-11 12:48] VITALS: O2SAT 99
[2022-07-11 13:41] VITALS: BP 127/74; PULSE 81
== END 2022-07-11 14:00 | disposition home or self-care (01) ==
LOC: ED 09:04
DX: R07.9 Chest pain, unspecified (principal); R13.10 Dysphagia, unspecified; Z86.16 Personal history of COVID-19; I10 Essential (primary) hypertension; E78.5 Hyperlipidemia, unspecified; Z79.891 Long term (current) use of opiate analgesic; Z79.01 Long term (current) use of anticoagulants; Z79.899 Other long term (current) drug therapy; Z72.0 Tobacco use
CPT/HCPCS: 36000; 36415; 71045; 71250; 80053; 83880; 84484; 85025; 85379; 93005; 96374; 96375; 96376; 99284; J2270; J2405; A9270-GY

== ENCOUNTER 2022-10-31 12:45 | Emergency (ER) | payer OTHER ==
[2022-10-31] MEDS ORDERED: DUONEB 0.5-3 MG/3 ml Neb IH ONE ×4 (12:57→14:31)
[2022-10-31] MEDS ORDERED: Sodium Chloride 0.9% 1000 ML 1,000 ML IV STA (12:57)
[2022-10-31] MEDS ORDERED: solu-MEDROL 125 MG, Sterile H2O 10 ml 2 ML IV ONE ×2 (12:57)
[2022-10-31] MEDS ORDERED: MAGNESIUM SULF 2 G/50 ML BAG 2 GM/50 ML PIGGYBACK IV ONE ×2 (12:58→13:20)
[2022-10-31] MEDS ORDERED: Sterile H2O 10 ml IJ ONE (13:18)
[2022-10-31] MEDS ORDERED: solu-MEDROL ONE (13:18)
[2022-10-31] MEDS ORDERED: Sodium Chloride 0.9% 1000 ML 1,000 ML ONE (13:20)
[2022-10-31 13:23] LABS: Absolute Neutrophil Ct (ANC) 5.16 x10^3/uL (1.4-6.9); BASOPHIL % 0.7 % (0.0-0.4); Basophil (Absolute #) 0.05 x10^3/uL (0-0.4); Eosinophil % 2.1 % (0.00-5.0); Eosinophil (Absolute #) 0.16 x10^3/uL (0-0.5); Hematocrit 34.6 % (42-50); Hemoglobin 11.1 g/dL (12.5-18.0); IMMATURE GRAN # 0.06 x10^3u/L (0.00-0.03); IMMATURE GRAN % 0.8 % (0.00-0.4); Lymphocyte (Absolute #) 1.38 x10^3/uL (1.0-4.6); Lymphocytes % 18.2 % (24.0-44.0); Mean Cell Volume 114.6 fL (78-100); Mean Corpuscular Hemoglobin 36.8 pg (26-32); Mean Corpuscular Hgb Concent. 32.1 g/dL (32-36); Mean Platelet Volume 10.2 fL (7.5-11.0); Monocyte (Absolute #) 0.78 x10^3/uL (0.0-1.3); Monocytes % 10.3 % (0.0-12.0); Neutrophil % 67.9 % (36.0-66.0); Platelet Count 334 x10^3/uL (150-450); Red Blood Count 3.02 x10^6/uL (4.1-5.6); Red Cell Distribution Width 16.9 % (11.5-14.0); White Blood Count 7.6 x10^3/uL (4.0-10.5)
[2022-10-31 13:37] LABS: ALBUMIN 3.7 g/dL (3.5-5.0); ALKALINE PHOSPHATASE 127 U/L (38-126); ANION GAP 12.6 MEQ/L (5-15); BLOOD UREA NITROGEN 9 mg/dL (9-20); CHLORIDE 108 mmol/L (98-107); Calcium 8.2 mg/dL (8.4-10.2); Carbon Dioxide 25 mmol/L (22-30); Creatinine 1 0.76 mg/dL (0.66-1.25); EST GLOMERULAR FILTRATION RATE > 60.0 ML/MIN; Glucose 117 mg/dL (74-106); Potassium 3.4 mmol/L (3.5-5.1); SGOT/AST 33 U/L (17-59); SGPT/ALT 32 U/L (0-50); SODIUM 143 mmol/L (137-145); Total Protein 6.5 g/dL (6.3-8.2)
[2022-10-31 13:59] LABS: INFLUENZA A NEGATIVE (NEGATIVE); INFLUENZA B NEGATIVE (NEGATIVE); RESPIRATORY SYNCTIAL VIRUS NEGATIVE (NEGATIVE); SARS-CoV-2 Xpert Express NEGATIVE (NEGATIVE)
[2022-10-31] MEDS ORDERED: TORAdol 30 mg Injection IV ONE (14:23)
[2022-10-31] MEDS ORDERED: BENADRYL 50 MG/ML IV ONE (14:23)
[2022-10-31] MEDS ORDERED: BENADRYL 50 MG/ML ONE (14:37)
[2022-10-31] MEDS ORDERED: TORAdol 30 mg Injection ONE (14:37)
[2022-10-31 14:58] VITALS: O2SAT 75
[2022-10-31] MEDS ORDERED: Ativan 2 MG/1 ML VIAL IV ONE (15:00)
[2022-10-31] MEDS ORDERED: Ativan 2 MG/1 ML VIAL ONE (15:02)
[2022-10-31] MEDS ORDERED: Furosemide 100mg/10 ml Vial ONE (15:10)
--- NOTE | 2022-10-31 15:11 | ERPHSYRPT ---
- History of Present Illness Time Seen by Provider: 10/31/22 12:47 Source: patient Exam Limitations: no limitations Patient Subjective Stated Complaint: "I feel short of breath today, it's been gradually coming on for a week or so. I have a cough too." Triage Nursing Assessment: Pt presents to ER in wheelchair from [facility]. They called and stated patient came to their clinic to be seen for shortness of breath and had low O2 saturations in the high 80s. Pt has cardiac hx and pacemaker with reported abnormal heart beats. Pt arrives to ER and is taken to ER room 3. Pt is able to ambulate to bed and speak in full sentences. Pt respirations are slightly labored and lung sounds are present slight rales upon expiration. Pt does have intermittent cough with clear sputum. Pt is alert and oriented x 3. Skin is pink, warm, and dry. Denies pain. Denies n/v/d. Physician History: Patient is here from [facility]. Shortness of breath. Has been going a few days. He feels that he has bronchitis. Patient states he has never been diagnosed with COPD. Patient is visibly wheezy, minimal retractions. Patient states that he has smoked his whole life. Patient placed on oxygen from [facility]. On 2 L now. 88%. Patient states he feels unwell. 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 History of cardiac bypass previous cardiac infarctions. Patient does not believe he has a history of COPD, acute heart failure. He does not complain of any lower extremity swelling. Patient states that he did recently get home from [place]. States he has been driving around more than usual. Allergies/Adverse Reactions: amoxicillin [Amoxicillin] Allergy (Intermediate, Verified 10/31/22 13:06) Rash bee venom protein (honey bee) Allergy (Verified 10/31/22 13:06) Home Medications: Duloxetine HCl 30 mg [Cymbalta 30 MG Capsule] 30 mg PO DAILY 09/14/15 [History] Simvastatin 40 mg [Zocor 40 mg] 40 mg PO DAILY 09/14/15 [History] Potassium Chloride 20 Meq [Klor-Con 20 MEQ] 1 tab PO DAILY 06/28/17 [History] Carvedilol 12.5 mg [Coreg 12.5 mg] 12.5 mg PO BID 10/11/18 [History] Rivaroxaban [Xarelto] 15 mg PO HS 06/25/19 [History] Aspirin [Joshua Chewable Aspirin] 81 mg PO DAILY 10/31/22 [History] Carvedilol 12.5 mg [Coreg 12.5 mg] 1 tab PO BID 10/31/22 [History] Ferrous Sulfate 1 tab PO DAILY 10/31/22 [History] dilTIAZem HCL [Diltiazem HCl] 1 tab PO DAILY 10/31/22 [History] Hx Tetanus, Diphtheria Vaccination/Date Given: Yes Hx Influenza Vaccination/Date Given: Yes Hx Pneumococcal Vaccination/Date Given: Yes Immunizations Up to Date: Yes Travel Risk - International Travel Have you traveled outside of the country in past 3 weeks: No - Coronavirus Screening Are you exhibiting any of the following symptoms?: Yes Symptoms: Cough: New Onset Close contact with a COVID-19 positive Pt in past 14-21 Days: No - Vaccine Status Have you recieved a Covid-19 vaccination: Yes Porcelain Enamel Sprayer: Unknown - Vaccination Dates Dates if Unknown: unkonwn - Review of Systems Constitutional: No Fever, No Chills Eyes: No Symptoms Ears, Nose, & Throat: No Symptoms Respiratory: Cough, Wheezing (Shortness of breath and wheezing), Other, No Dyspnea Cardiac: No Chest Pain, No Edema, No Syncope Abdominal/Gastrointestinal: No Abdominal Pain, No Nausea, No Vomiting, No Diarrhea Genitourinary Symptoms: No Dysuria Musculoskeletal: No Back Pain, No Neck Pain Skin: No Rash Neurological: No Dizziness, No Focal Weakness, No Sensory Changes Psychological: No Symptoms Endocrine: No Symptoms All Other Systems: Reviewed and Negative - Past Medical History Pertinent Past Medical History: Yes Neurological History: No Pertinent History ENT History: No Pertinent History Cardiac History: Coronary Artery Disease, High Cholesterol, Myocardial Infarction ([place]) Respiratory History: No Pertinent History Endocrine Medical History: No Pertinent History Musculoskeletal History: Fractures GI Medical History: Diverticulitis, Diverticulosis History: No Pertinent History Psycho-Social History: No Pertinent History Male Reproductive Disorders: No Pertinent History Other Medical History: repeated shoulder dislocations - Past Surgical History Past Surgical History: Yes Neuro Surgical History: No Pertinent History Cardiac: CABG, Cardiac Stent, Internal Defibrillator, Pacemaker Respiratory: No Pertinent History Gastrointestinal: No Pertinent History Genitourinary: No Pertinent History Musculoskeletal: Orthopedic Surgery Male Surgical History: No Pertinent History Other Surgical History: Right shoulder rotator cuff repair,, cardiac stent x one placed, pacemaker/defib. placed 2017. - Social History Smoking Status: Current every day smoker How long have you smoked: 50 years Exposure to second hand smoke: No Drug Use: none Patient Lives Alone: No - Nursing Vital Signs Nursing Vital Signs: Initial Vital Signs Temperature 96.7 F 10/31/22 12:53 Pulse Rate 116 H 10/31/22 12:53 Respiratory Rate 22 10/31/22 12:53 Blood Pressure 108/90 10/31/22 12:53 O2 Sat by Pulse Oximetry 88 L 10/31/22 12:53 Pain Scale Pain Intensity 0 - Physical Exam General Appearance: no apparent distress, mild distress (He appears uncomfortable, increased breathing distressed.), alert, other Eye Exam: PERRL/EOMI, eyes nml inspection Ears, Nose, Throat Exam: normal ENT inspection, TMs normal, pharynx normal, moist mucous membranes Neck Exam: normal inspection, non-tender, supple, full range of motion, midline tenderness Respiratory Exam: diminished breath sounds, wheezing (Wheezes throughout, minimal retractions, not in respiratory distress), No respiratory distress Cardiovascular Exam: regular rate/rhythm, normal heart sounds, normal peripheral pulses, other (No lower extremity edema) Gastrointestinal/Abdomen Exam: soft, normal bowel sounds, No tenderness, No mass Back Exam: normal inspection, normal range of motion, No CVA tenderness, No vertebral tenderness Extremity Exam: normal inspection, normal range of motion, pelvis stable Neurologic Exam: alert, oriented x 3, cooperative, normal mood/affect, nml cerebellar function, nml station & gait, sensation nml, No motor deficits Skin Exam: normal color, warm, dry, No rash Lymphatic Exam: No adenopathy SpO2: 75 - Course Nursing assessment & vital signs reviewed: Yes EKG Interpreted by Me: Sinus Rhythm (First EKG shows sinus tachycardia, no obvious ST changes, no signs of ischemia) Ordered Tests: Active Orders 24 hr Category Date Time Status Chicken Handler STAT Care 10/31/22 12:58 Completed EKG-ER Only STAT Care 10/31/22 12:57 Completed IV Insertion STAT Care 10/31/22 12:57 Completed CHEST 1 VIEW (PORTABLE) Stat Exams 10/31/22 15:12 Completed CHEST 2 VIEWS (PA AND LAT) Stat Exams 10/31/22 12:57 Completed CHEST WITH CONTRAST [CT] Stat Exams 10/31/22 13:52 Completed ABG [ARTERIAL BLOOD GASES] Stat Lab 10/31/22 15:15 Completed CBC W DIFF Stat Lab 10/31/22 13:15 Completed CMP Stat Lab 10/31/22 13:15 Completed CULTURE,URINE Stat Lab 10/31/22 17:40 Received D-DIMER QUANTITATIVE Stat Lab 10/31/22 13:15 Completed NT PRO BNPII Stat Lab 10/31/22 13:15 Completed TROPONIN Q4H Lab 10/31/22 13:15 Completed TROPONIN Q4H Lab 10/31/22 17:32 Completed TROPONIN Q4H Lab 10/31/22 21:00 Ordered UA W/RFX UR CULTURE Stat Lab 10/31/22 17:40 Completed BiPap/CPAP ROUTINE RT 10/31/22 15:10 Completed Respiratory Therapy Assessment DAILY RT 10/31/22 13:22 Completed Standby STAT RT 10/31/22 15:54 Completed Medication Summary Discontinued Medications Generic Name Dose Route Start Last Admin Trade Name Freq PRN Reason Stop Dose Admin Albuterol/Ipratropium 3 ml 10/31/22 12:57 10/31/22 13:18 Ipratropium/Albuterol Sulfate 3 Ml Ampul.Neb 10/31/22 12:58 3 ml STAT ONE Administration Albuterol/Ipratropium Confirm 10/31/22 13:17 Ipratropium/Albuterol Sulfate 3 Ml Ampul.Neb Administered 10/31/22 13:18 Dose 3 ml IH .STK-MED ONE Albuterol/Ipratropium 3 ml 10/31/22 14:16 10/31/22 14:36 Ipratropium/Albuterol Sulfate 3 Ml Ampul.Neb IH 10/31/22 14:17 3 ml STAT ONE Administration Albuterol/Ipratropium Confirm 10/31/22 14:31 Ipratropium/Albuterol Sulfate 3 Ml Ampul.Neb Administered 10/31/22 14:32 Dose 3 ml IH .STK-MED ONE Methylprednisolone Sodium 0 mg 10/31/22 12:57 10/31/22 13:23 Succinate 125 mg/ Sterile IV 10/31/22 12:58 125 mg Water 2 ml STAT ONE Administration Diphenhydramine HCl 25 mg 10/31/22 14:23 10/31/22 14:39 Diphenhydramine Hcl 50 Mg/Ml Vial IV 10/31/22 14:24 25 mg STAT ONE Administration Diphenhydramine HCl Confirm 10/31/22 14:37 Diphenhydramine Hcl 50 Mg/Ml Vial Administered 10/31/22 14:38 Dose 50 mg .ROUTE .STK-MED ONE Droperidol 1.25 mg 10/31/22 14:23 10/31/22 14:38 Droperidol 5 Mg/2 Ml Vial IV 10/31/22 14:24 1.25 mg STAT ONE Administration Droperidol Confirm 10/31/22 14:37 Droperidol 5 Mg/2 Ml Vial Administered 10/31/22 14:38 Dose 5 mg .ROUTE .STK-MED ONE Furosemide Confirm 10/31/22 15:10 Furosemide 100 Mg/10 Ml Vial Administered 10/31/22 15:11 Dose 100 mg .ROUTE .STK-MED ONE Furosemide 80 mg 10/31/22 15:17 10/31/22 15:19 Furosemide 100 Mg/10 Ml Vial IV 10/31/22 15:18 80 mg STAT ONE Administration Sodium Chloride 1,000 mls @ 999 mls/hr 10/31/22 12:57 10/31/22 15:58 Sodium Chloride 0.9% 1000 Ml IV 10/31/22 13:57 Infused .Q1H1M STA Infusion Magnesium Sulfate/Water 2 gm in 50 mls @ 100 mls/hr 10/31/22 12:58 10/31/22 14:17 Magnesium Sulf 2 G/50 Ml Bag IV 10/31/22 13:27 Infused ONCE ONE Infusion Magnesium Sulfate/Water Confirm 10/31/22 13:20 Magnesium Sulf 2 G/50 Ml Bag Administered 10/31/22 13:21 Dose 2 gm in 50 mls @ ud IV .STK-MED ONE Sodium Chloride Confirm 10/31/22 13:20 Sodium Chloride 0.9% 1000 Ml Administered 10/31/22 13:21 Dose 1,000 mls @ ud .ROUTE .STK-MED ONE Ceftriaxone Sodium/Dextrose 1 g in 50 mls @ 100 mls/hr 10/31/22 15:13 10/31/22 15:58 Rocephin 1 Gm-D5w 50 Ml Bag IV 10/31/22 15:42 Infused STAT STA Infusion Azithromycin 500 mg in 250 mls @ 250 mls/hr 11/01/22 10:00 10/31/22 17:28 Zithromax 500 Mg/ 250 Ml Nacl Premix IV 12/01/22 09:59 Infused Q24H10 QUINN Infusion Azithromycin Confirm 10/31/22 15:17 Zithromax 500 Mg/ 250 Ml Nacl Premix Administered 10/31/22 15:18 Dose 500 mg in 250 mls @ ud IV .STK-MED ONE Ceftriaxone Sodium/Dextrose Confirm 10/31/22 15:17 Rocephin 1 Gm-D5w 50 Ml Bag Administered 10/31/22 15:18 Dose 1 g in 50 mls @ ud IV .STK-MED ONE Norepinephrine/Dextrose 8 mg in 250 mls @ 15 mls/hr 10/31/22 17:15 Norepinephrine 8 Mg/250 Ml-D5w IV 11/30/22 17:14 .[id number] PRN HYPOTENSION Protocol 8 MCG/MIN Norepinephrine/Dextrose Confirm 10/31/22 17:19 Norepinephrine 8 Mg/250 Ml-D5w Administered 10/31/22 17:20 Dose 8 mg in 250 mls @ ud IV .STK-MED ONE Ketorolac Tromethamine 30 mg 10/31/22 14:23 10/31/22 14:39 Ketorolac Tromethamine 30 Mg/Ml Inj IV 10/31/22 14:24 30 mg STAT ONE Administration Ketorolac Tromethamine Confirm 10/31/22 14:37 Ketorolac Tromethamine 30 Mg/Ml Inj Administered 10/31/22 14:38 Dose 30 mg .ROUTE .STK-MED ONE Lorazepam 1 mg 10/31/22 15:00 10/31/22 15:03 Lorazepam 2 Mg/1 Ml 2 Mg Vial IV 10/31/22 15:01 1 mg STAT ONE Administration Lorazepam Confirm 10/31/22 15:02 Lorazepam 2 Mg/1 Ml 2 Mg Vial Administered 10/31/22 15:03 Dose 2 mg .ROUTE .STK-MED ONE Methylprednisolone Sodium Succinate Confirm 10/31/22 13:18 Methylprednis Sod Succ 125 Mg/2 Ml Vial Administered 10/31/22 13:19 Dose 125 mg .ROUTE .STK-Paratek ONE Sterile Water Confirm 10/31/22 13:18 Water For Injection,Sterile 10 Ml Vial Administered 10/31/22 13:19 Dose 10 ml IJ .Froont-MED ONE Lab/Rad Data: Laboratory Result Diagrams 10/31/22 13:15 10/31/22 13:15 Laboratory Results 10/31/22 10/31/22 10/31/22 Range/Units 17:40 17:32 15:15 WBC (4.0-10.5) x10^3/uL RBC (4.1-5.6) x10^6/uL Hgb (12.5-18.0) g/dL Hct (42-50) % MCV (78-100) fL MCH (26-32) pg MCHC (32-36) g/dL RDW (11.5-14.0) % Plt Count (150-450) x10^3/uL MPV (7.5-11.0) fL Gran % (36.0-66.0) % Immature Gran % (Auto) (0.00-0.4) % Nucleat RBC Rel Count (0.00-0.1) % Eos # (Auto) (0-0.5) x10^3/uL Immature Gran # (Auto) (0.00-0.03) x10^3u/L Absolute Lymphs (auto) (1.0-4.6) x10^3/uL Absolute Monos (auto) (0.0-1.3) x10^3/uL Absolute Nucleated RBC (0.00-0.01) x10^3u/L Lymphocytes % (24.0-44.0) % Monocytes % (0.0-12.0) % Eosinophils % (0.00-5.0) % Basophils % (0.0-0.4) % Absolute Granulocytes (1.4-6.9) x10^3/uL Basophils # (0-0.4) x10^3/uL D-Dimer (0.0-0.50) mg/L Puncture Site RIGHT BRACHIAL pCO2 29 L (35-45) mmHg pO2 80 (75-100) mmHg Base Excess -5.1 L (-2.0-2.0) O2 Saturation 93.0 L (94-100) g/dF ABG pH 7.41 (7.35-7.45) ABG HCO3 18.4 L (22-28) ABG O2 Sat (Measured) 95.2 (95-100) % Ruslan Test YES A-a Gradient 240 a/A Ratio 0.25 Hemoglobin 11.7 Carboxyhemoglobin 2.0 (0.0-6.9) % THgb Methemoglobin 0.4 L (1.4-1.5) % Temperature 37.0 C POC O2 Flow Rate 50 % Vent Mode BiPAP Vent Rate 16 /MIN Inspiratory BiPAP 14 Expiratory BiPAP 8 Sodium (137-145) mmol/L Potassium 3.3 L (3.5-5.1) mmol/L Chloride (98-107) mmol/L Carbon Dioxide (22-30) mmol/L Anion Gap (5-15) MEQ/L BUN (9-20) mg/dL Creatinine (0.66-1.25) mg/dL Estimated GFR ML/MIN Glucose (74-106) mg/dL Calcium (8.4-10.2) mg/dL Total Bilirubin (0.2-1.3) mg/dL AST (17-59) U/L ALT (0-50) U/L Alkaline Phosphatase (38-126) U/L Troponin I 0.026 (0.000-0.034) ng/mL NT-Pro-B Natriuret Pep (<300) pg/mL Serum Total Protein (6.3-8.2) g/dL Albumin (3.5-5.0) g/dL Urine Color Yellow (Yellow) Urine Appearance Clear (Clear) Urine pH 5.5 (4.6-8.0) Ur Specific [place] 1.015 (1.005-1.030) Urine Protein Negative (Negative) Urine Glucose (UA) Negative (Negative) mg/dL Urine Ketones Negative (Negative) Urine Blood Negative (Negative) Urine Nitrite Negative (Negative) Urine Bilirubin Negative (Negative) Urine Urobilinogen 0.2 (0.2) mg/dL Ur Leukocyte Esterase Negative (Negative) U Hyaline Cast (Auto) 3-5 A (0-2) /LPF Urine Microscopic RBC 0-2 (0-5) /HPF Urine Microscopic WBC 0-2 (0-5) /HPF Ur Epithelial Cells None Seen (None Seen) /HPF Urine Bacteria None Seen (None Seen) /HPF Urine Culture Reflexed NO (NO) Influenza Type A Ag (NEGATIVE) Influenza Type B Ag (NEGATIVE) RSV (PCR) (NEGATIVE) SARS-CoV-2 (PCR) (NEGATIVE) 10/31/22 10/31/22 10/31/22 Range/Units 13:15 13:15 13:15 WBC (4.0-10.5) x10^3/uL RBC (4.1-5.6) x10^6/uL Hgb (12.5-18.0) g/dL Hct (42-50) % MCV (78-100) fL MCH (26-32) pg MCHC (32-36) g/dL RDW (11.5-14.0) % Plt Count (150-450) x10^3/uL MPV (7.5-11.0) fL Gran % (36.0-66.0) % Immature Gran % (Auto) (0.00-0.4) % Nucleat RBC Rel Count (0.00-0.1) % Eos # (Auto) (0-0.5) x10^3/uL Immature Gran # (Auto) (0.00-0.03) x10^3u/L Absolute Lymphs (auto) (1.0-4.6) x10^3/uL Absolute Monos (auto) (0.0-1.3) x10^3/uL Absolute Nucleated RBC (0.00-0.01) x10^3u/L Lymphocytes % (24.0-44.0) % Monocytes % (0.0-12.0) % Eosinophils % (0.00-5.0) % Basophils % (0.0-0.4) % Absolute Granulocytes (1.4-6.9) x10^3/uL Basophils # (0-0.4) x10^3/uL D-Dimer (0.0-0.50) mg/L Puncture Site pCO2 (35-45) mmHg pO2 (75-100) mmHg Base Excess (-2.0-2.0) O2 Saturation (94-100) g/dF ABG pH (7.35-7.45) ABG HCO3 (22-28) ABG O2 Sat (Measured) (95-100) % Ruslan Test A-a Gradient a/A Ratio Hemoglobin Carboxyhemoglobin (0.0-6.9) % THgb Methemoglobin (1.4-1.5) % Temperature C POC O2 Flow Rate % Vent Mode Vent Rate /MIN Inspiratory BiPAP Expiratory BiPAP Sodium (137-145) mmol/L Potassium (3.5-5.1) mmol/L Chloride (98-107) mmol/L Carbon Dioxide (22-30) mmol/L Anion Gap (5-15) MEQ/L BUN (9-20) mg/dL Creatinine (0.66-1.25) mg/dL Estimated GFR ML/MIN Glucose (74-106) mg/dL Calcium (8.4-10.2) mg/dL Total Bilirubin (0.2-1.3) mg/dL AST (17-59) U/L ALT (0-50) U/L Alkaline Phosphatase (38-126) U/L Troponin I 0.025 (0.000-0.034) ng/mL NT-Pro-B Natriuret Pep 60247 (<300) pg/mL Serum Total Protein (6.3-8.2) g/dL Albumin (3.5-5.0) g/dL Urine Color (Yellow) Urine Appearance (Clear) Urine pH (4.6-8.0) Ur Specific [place] (1.005-1.030) Urine Protein (Negative) Urine Glucose (UA) (Negative) mg/dL Urine Ketones (Negative) Urine Blood (Negative) Urine Nitrite (Negative) Urine Bilirubin (Negative) Urine Urobilinogen (0.2) mg/dL Ur Leukocyte Esterase (Negative) U Hyaline Cast (Auto) (0-2) /LPF Urine Microscopic RBC (0-5) /HPF Urine Microscopic WBC (0-5) /HPF Ur Epithelial Cells (None Seen) /HPF Urine Bacteria (None Seen) /HPF Urine Culture Reflexed (NO) Influenza Type A Ag NEGATIVE (NEGATIVE) Influenza Type B Ag NEGATIVE (NEGATIVE) RSV (PCR) NEGATIVE (NEGATIVE) SARS-CoV-2 (PCR) NEGATIVE (NEGATIVE) 10/31/22 10/31/22 10/31/22 Range/Units 13:15 13:15 13:15 WBC 7.6 (4.0-10.5) x10^3/uL RBC 3.02 L (4.1-5.6) x10^6/uL Hgb 11.1 L (12.5-18.0) g/dL Hct 34.6 L (42-50) % MCV 114.6 H (78-100) fL MCH 36.8 H (26-32) pg MCHC 32.1 (32-36) g/dL RDW 16.9 H (11.5-14.0) % Plt Count 334 (150-450) x10^3/uL MPV 10.2 (7.5-11.0) fL Gran % 67.9 H (36.0-66.0) % Immature Gran % (Auto) 0.8 H (0.00-0.4) % Nucleat RBC Rel Count 0.0 (0.00-0.1) % Eos # (Auto) 0.16 (0-0.5) x10^3/uL Immature Gran # (Auto) 0.06 H (0.00-0.03) x10^3u/L Absolute Lymphs (auto) 1.38 (1.0-4.6) x10^3/uL Absolute Monos (auto) 0.78 (0.0-1.3) x10^3/uL Absolute Nucleated RBC 0.00 (0.00-0.01) x10^3u/L Lymphocytes % 18.2 L (24.0-44.0) % Monocytes % 10.3 (0.0-12.0) % Eosinophils % 2.1 (0.00-5.0) % Basophils % 0.7 (0.0-0.4) % Absolute Granulocytes 5.16 (1.4-6.9) x10^3/uL Basophils # 0.05 (0-0.4) x10^3/uL D-Dimer 0.70 H* (0.0-0.50) mg/L Puncture Site pCO2 (35-45) mmHg pO2 (75-100) mmHg Base Excess (-2.0-2.0) O2 Saturation (94-100) g/dF ABG pH (7.35-7.45) ABG HCO3 (22-28) ABG O2 Sat (Measured) (95-100) % Ruslan Test A-a Gradient a/A Ratio Hemoglobin Carboxyhemoglobin (0.0-6.9) % THgb Methemoglobin (1.4-1.5) % Temperature C POC O2 Flow Rate % Vent Mode Vent Rate /MIN Inspiratory BiPAP Expiratory BiPAP Sodium 143 (137-145) mmol/L Potassium 3.4 L (3.5-5.1) mmol/L Chloride 108 H (98-107) mmol/L Carbon Dioxide 25 (22-30) mmol/L Anion Gap 12.6 (5-15) MEQ/L BUN 9 (9-20) mg/dL Creatinine 0.76 (0.66-1.25) mg/dL Estimated GFR > 60.0 ML/MIN Glucose 117 H (74-106) mg/dL Calcium 8.2 L (8.4-10.2) mg/dL Total Bilirubin 0.50 (0.2-1.3) mg/dL AST 33 (17-59) U/L ALT 32 (0-50) U/L Alkaline Phosphatase 127 H (38-126) U/L Troponin I (0.000-0.034) ng/mL NT-Pro-B Natriuret Pep (<300) pg/mL Serum Total Protein 6.5 (6.3-8.2) g/dL Albumin 3.7 (3.5-5.0) g/dL Urine Color (Yellow) Urine Appearance (Clear) Urine pH (4.6-8.0) Ur Specific [place] (1.005-1.030) Urine Protein (Negative) Urine Glucose (UA) (Negative) mg/dL Urine Ketones (Negative) Urine Blood (Negative) Urine Nitrite (Negative) Urine Bilirubin (Negative) Urine Urobilinogen (0.2) mg/dL Ur Leukocyte Esterase (Negative) U Hyaline Cast (Auto) (0-2) /LPF Urine Microscopic RBC (0-5) /HPF Urine Microscopic WBC (0-5) /HPF Ur Epithelial Cells (None Seen) /HPF Urine Bacteria (None Seen) /HPF Urine Culture Reflexed (NO) Influenza Type A Ag (NEGATIVE) Influenza Type B Ag (NEGATIVE) RSV (PCR) (NEGATIVE) SARS-CoV-2 (PCR) (NEGATIVE) - Progress Progress: improved Progress Note: differential diagnosis includes: PNA, STEMI, NSTEMI, other infection, musculoskeletal pain, pneumothorax, COPD exacerbation, acute heart failure - We'll obtain basic labs, fluids, EKG, troponin, chest x-ray - first troponin negative - EKG shows no ST changes - my read. See full read below. - O2 saturations consistently greater than 95% on 2 L of oxygen - CHF peptide elevated. - Patient received albuterol, steroids, magnesium, fluids. - COVID, influenza, RSV swab negative Patient initially looking better after interventions. 10/31/22 15:24 Patient had an acute change at this time. Initially patient was speaking in full sentences, appeared well, appeared to be a COPD exacerbation. He received magnesium, steroids, 2 breathing treatments. Patient began to complain of a headache and anxiousness. Therefore was given a headache cocktail. Within 5 to 10 minutes patient was extremely anxious, complaining of increasing shortness of breath, appeared uncomfortable. Given his cool extremities we had difficulty obtaining an accurate O2 at this point in time. Given his acute change, increased work of breathing, increased wheezing we did decide to put patient on BiPAP. Patient's BNP also elevated. No known history of acute cardiac failure per the daughter or the patient. We will give Lasix in case this is the new process going on today. Chest x-ray obtained does show some pulmonary edema on my read. We are awaiting official read. Will need a CTA to ensure that there is no other sinister cardiac issue, pulmonary issue. This could be a pulmonary embolism, acute dissection, other pathology. Plan for CTA at this point time. Emergency ABG also obtained by RT. Currently pending. Repeat EKG at this time demonstrates sinus tachycardia without ST changes. Appears similar to first EKG. we will start patient on broad-spectrum antibiotics in case there is pneumonia. 10/31/22 17:29 ABG results demonstrate positive results. Patient's O2 appears stable on ABG. Patient's vital signs have also stabilized. His work of breathing has improved. Overall, patient looks very much improved on BiPAP. CT has resulted. No large aortic dissection or pulmonary embolism. However patient does appear to have acute cardiogenic pulmonary edema. Cardiomegaly with ventricular dilation, pleural effusions, diffuse groundglass throughout upper lobes with fluffy airspace in lower lobes. All this points to acute pulmonary edema secondary to cardiogenic cause from my perspective. He does not appear in cardiogenic shock at this point in time. He is blood pressure and heart rate have mostly normalized. Heart rate in the 110s, blood pressure 138/96. Overall, I do feel patient looks much improved. Patient will need transfer to a higher level of care. He will need care from his chef broiler or fry was performed previous interventions on him, care from pulmonology in case he needs further pulmonary interventions, BiPAP management, possible drainage of pleural effusions. Given all of this I do not feel that we have the ability to take care of patient here at [facility]. I did discuss over the phone with on- call ER physician at [facility][1]. This is where patient states his chef broiler or fry is at. We will do an ER to ER transfer of the patient at this po int in time. Patient remains hemodynamically stable. Counseled pt/family regarding: lab results, diagnosis, need for follow-up, rad results Medical Desision Making - Independent Historian Additional History obtained from: Child - External Record(s) Reviewed Records reviewed as a part of evaluation & management: Discharge Summary - Discussion of managment Care discussed with:: hospitalist Reviewed:: Test results, Need for additional workup Agreed on:: Treatment plan, need for follow-up, decision to admit (Decision to transfer patient) - Diagnostic Testing Diagnostic test were ordered, analyzed, and reviewed by me: Yes Radiological Interpretation: Interpreted by me, Reviewed by me - Departure Departure Disposition: Transfer Clinical Impression: Acute respiratory failure, Acute heart failure, Acute pulmonary edema Condition: Stable Critical Care Time: Yes Critical Care Time(excluding separately billable procedures): Critical 30-74 mins Referrals: GAIL MONROY [Primary Care Provider] - Follow up/PCP as directed
[2022-10-31] MEDS ORDERED: ROCEPHIN 1 Gm-D5w 50 ml Bag** 1 G/50 ML IVPB IV STA (15:13)
[2022-10-31] MEDS ORDERED: Furosemide 100mg/10 ml Vial IV ONE (15:17)
[2022-10-31] MEDS ORDERED: ROCEPHIN 1 Gm-D5w 50 ml Bag** 1 G/50 ML IVPB IV ONE (15:17)
[2022-10-31] MEDS ORDERED: Zithromax 500 MG/ 250 ML NaCl Premix 500 MG/250 ML IVPB IV ONE (15:17)
[2022-10-31 15:29] LABS: A-aADO2 240; ABG HEMOGLOBIN 11.7; ABG POTASSIUM 3.3 (3.5-5.1); ARTERIAL BLD GAS O2 SATURATION 95.2 % (95-100); ARTERIAL BLOOD GAS BASE EXCESS -5.1 (-2.0-2.0); ARTERIAL BLOOD GAS FIO2 50 %; ARTERIAL BLOOD GAS PCO2 29 mmHg (35-45); ARTERIAL BLOOD GAS PO2 80 mmHg (75-100); ARTERIAL BLOOD GAS VENT MODE BiPAP; ARTERIAL BLOOD GAS pH 7.41 (7.35-7.45); BIPAP(E) 8; BIPAP(I) 14; HCO3- 18.4 (22-28); Methhemoglobin 0.4 % (1.4-1.5); paO2 pAO1 0.25
[2022-10-31 15:30] LABS: ABG SITE RIGHT BRACHIAL; ALLEN TEST OK? YES; ARTERIAL BLOOD GAS VENT RATE 16 /MIN
--- NOTE | 2022-10-31 16:38 | XRAY ---
CLINICAL HISTORY:SOB COMPARISON:None; TECHNIQUES:X-ray chest showing 1 view: Frontal view; FINDINGS: . Patchy airspace opacities are seen in both mid and lower lung zones. Interstitial lines are seen at lung bases bilaterally, more on right side. Mild blunting of bilateral costophrenic angles, which could be as a result of pleural thickening or mild pleural effusion. Further confirmation of pleural effusion can be done with the help of an ultrasound of the chest. Prominence of bilateral hilar shadows. Cardiac silhouette is enlarged. A single lead pacemaker is noted. Sternal sutures are seen. Fracture with callus formation of the right eighth, ninth and 10th ribs are seen. Left acromioclavicular joint arthritic changes are seen. There is resorption of the distal end of the right clavicle with osteophytes noted along the right acromion. Further correlation with an MRI of the right shoulder is advised. IMPRESSION: 1. Patchy airspace opacities in both lungs. 2. Interstitial lines at lung bases, likely farhad lines. 3. Mild blunting of both costophrenic angles likely mild pleural effusion. Correlation with ultrasound of the chest is advised. 4. Cardiomegaly. 5. Above described findings are likely secondary to acute pulmonary edema. Electronically Signed by: Raffi Sheikh MD. (10/31/2022 15:31:02 DEPUTY CHIEF COUNSEL)
--- NOTE | 2022-10-31 17:10 | XRAY ---
CLINICAL HISTORY:PE, COPD, Heart failure? COMPARISON:None; TECHNIQUES:Multiple axial sections of the CT chest were acquired with IV contrast administration. 80 cc Isovue 370 was given as an intravenous contrast. Coronal and sagittal reconstructions were also acquired; FINDINGS: Subtle paraseptal emphysematous changes are seen in both lung apices. Diffuse groundglass attenuation with thickened interlobular septae is seen in both upper lung lobes with subtle mosaic attenuation. Diffuse areas of fluffy airspace opacities with surrounding groundglass attenuation and smooth interlobular septal thickening is seen in both lower lung lobes. The aforementioned opacities in both upper and lower lungs are more in the dependent segments of the lungs. Moderate right and mild left pleural effusion is seen. Single chamber pacemaker is seen. Heart size is enlarged with left atrial and ventricular dilatation. Trachea and main stem bronchi are unremarkable. There is dilatation of pulmonary artery and its branches. The main pulmonary artery measures 3.0 cm and the right and left pulmonary arteries measure 2.4cm. No evidence of significant mediastinal lymphadenopathy. The esophagus is normal. Fracture with callus formation of the right 8th through 10th and the left 11th ribs is seen. No obvious osseous lytic/sclerotic lesion is seen. The scanned region of the abdomen shows a left renal cortical cyst. A Wedge shaped hypodense area is seen in the segment 4B of the liver, possibly focal fatty infiltration. Further correlation with an ultrasound of the abdomen is advised. Sternal sutures are seen with mild scoliosis of the upper cervical thoracic spine with convexity towards the left side. IMPRESSION: 1. Diffuse groundglass attenuation with thickened interlobular septae with subtle mosaic attenuation in both upper lobes. Areas of fluffy airspace opacities with groundglass attenuation in both lower lungs. 2. Bilateral pleural effusion [right more than left). 3. Cardiomegaly with left atrial and ventricular dilatation. 4. These findings likely represents cardiogenic pulmonary edema. 5. Single chamber cardiac pacemaker. 6. Fracture with callus formation of the bilateral ribs. 7. A left renal cortical cyst with an area of focal fatty infiltration in the liver. Further correlation with an ultrasound is advised. 8. In comparison with prior CT chest dated 07/11/2022, the above-mentioned findings are new. Bilateral pleural effusion is also a new finding. Electronically Signed by: Raffi Sheikh MD. (10/31/2022 16:02:19 GRAPHICS MANAGER)
[2022-10-31] MEDS ORDERED: NOREPINEPHRINE 8 MG/250 ML-D5W 8 MG/250 ML PLAST..BAG IV PRN (17:15)
[2022-10-31] MEDS ORDERED: NOREPINEPHRINE 8 MG/250 ML-D5W 0 MG/0 ML PLAST..BAG IV ONE (17:19)
[2022-10-31 17:32] VITALS: BP 126/79; PULSE 104
--- NOTE | 2022-10-31 17:42 | XRAY ---
CLINICAL HISTORY:PNA COMPARISON:X-ray chest done on the same date: 10/31/2022; TECHNIQUES:X-ray chest showing 2 views: Frontal and lateral views; FINDINGS: Patchy airspace opacities are seen in both mid and lower lung zones (more on the right side). Interstitial lines are seen at lung bases bilaterally, more on the right side. Mild blunting of bilateral costophrenic angles, which could be as a result of pleural thickening or mild pleural effusion. Prominence of bilateral hilar shadows. Cardiac silhouette is enlarged. A single lead pacemaker is noted. Sternal sutures are seen. Fractures with callus formation of the right eighth, ninth, and 10th ribs are seen. Left acromioclavicular joint arthritic changes are seen. There is resorption of the distal end of the right clavicle with osteophytes noted along the right acromion. Further correlation with an MRI of the right shoulder is advised. IMPRESSION: 1. Patchy airspace opacities in both mid and lower lung zones. 2. Interstitial lines in the lung bases, likely Shalini B lines. 3. Mild blunting of both costophrenic anglesmild pleural effusion. 4. Enlarged cardiac silhouette. 5. No significant interval change is noted in comparison with prior radiograph. Electronically Signed by: Raffi Sheikh MD. (10/31/2022 16:35:45 MANAGING CONSULTANT)
[2022-10-31 17:57] LABS: Appearance Clear (Clear); Bacteria None Seen /HPF (None Seen); Bilirubin Negative (Negative); Blood Negative (Negative); Epithelial Cells None Seen /HPF (None Seen); Glucose, Urine Negative (Negative); Ketones Negative (Negative); Leukocyte Esterase Negative (Negative); Nitrite Negative (Negative); Ph 5.5 (4.6-8.0); Protein,Urine Dip Negative (Negative); RBC 0-2 /HPF (0-5); Specific Gravity 1.015 (1.005-1.030); Urobilinogen 0.2 mg/dL (0.2); WBC 0-2 /HPF (0-5)
[2022-10-31 17:59] LABS: ADD URINE CULTURE? NO (NO)
[2022-11-01] MEDS ORDERED: Zithromax 500 MG/ 250 ML NaCl Premix 500 MG/250 ML IVPB IV SCH (10:00)
== END 2022-10-31 17:50 | disposition short-term general hospital (02) ==
LOC: ED 12:45
DX: J96.00 Acute respiratory failure, unspecified whether with hypoxia or hypercapnia (principal); I50.1 Left ventricular failure, unspecified; E78.5 Hyperlipidemia, unspecified; Z79.01 Long term (current) use of anticoagulants; Z79.899 Other long term (current) drug therapy; Z72.0 Tobacco use; Z20.828 Contact with and (suspected) exposure to other viral communicable diseases
CPT/HCPCS: 0241U; 36000; 36415; 36600; 51702; 71045; 71046; 71260; 80053; 81001; 82375; 82803; 83880; 84484; 85025; 85379; 87086; 93005; 93041; 94002; 94640; 94799; 96360; 96365; 96367; 96374; 96375; 99285; 99291; J0456; J0696; J1200; J1885; J1940; J2060; J2930; A9270-GY; J3475

== ENCOUNTER 2023-03-15 15:31 | Emergency (ER) | payer MEDICARE ==
[2023-03-15 15:51] VITALS: PULSE 77; TEMP 97.4
[2023-03-15 16:46] VITALS: BP 122/84
[2023-03-15] MEDS ORDERED: MORPHINE SULFATE 4 MG INJ IM ONE (16:46)
--- NOTE | 2023-03-15 16:49 | XRAY ---
Indication: Pain. No known injury. Comparison: February 04, 2023 3 portable views right shoulder unchanged again demonstrating osteopenia, partial resection distal clavicle with heterotopic ossifications, old right 8/9 rib fractures, small right upper lobe bullae, and partially visualized cardiac pacer lead. No new/acute abnormalities.
[2023-03-15] MEDS ORDERED: MORPHINE SULFATE 4 MG INJ ONE (16:55)
[2023-03-15 17:03] VITALS: O2SAT 92
--- NOTE | 2023-03-15 17:03 | ERPHSYRPT ---
- History of Present Illness Time Seen by Provider: 03/15/23 15:45 Source: patient Exam Limitations: no limitations Patient Subjective Stated Complaint: pt went to [facility] today and states that he had contrast injected into his right shoulder and then a CT was done and he is now having extreme pain Triage Nursing Assessment: Pt brought to the ER by a friend, lavern singh, rates pain as 10/10, states that the pain goes from his elbow to his neck, states that the pain began approx 40 min after the injection and it feels like something is tearing inside his shoulder, irregular bounding pulses, no difficulties breathing Occurred: this morning Method of Injury: unknown (No injury) Quality: aching Severity of Pain-Max: moderate Severity of Pain-Current: mild Extremities Pain Location: shoulder: right Modifying Factors: Improves With: movement Associated Symptoms: none Allergies/Adverse Reactions: amoxicillin [Amoxicillin] Allergy (Intermediate, Verified 03/15/23 15:51) Rash bee venom protein (honey bee) Allergy (Verified 03/15/23 15:51) Home Medications: Duloxetine HCl 30 mg [Cymbalta 30 MG Capsule] 30 mg PO DAILY 09/14/15 [History] Carvedilol 12.5 mg [Coreg 12.5 mg] 12.5 mg PO BID 04/10/18 [History] Aspirin [Joshua Chewable Aspirin] 81 mg PO DAILY 10/31/22 [History] Carvedilol 12.5 mg [Coreg 12.5 mg] 6.25 mg PO BID 10/31/22 [History] Clopidogrel Bisulfate [Clopidogrel] 75 mg PO DAILY 03/15/23 [History] Furosemide 40 mg PO DAILY 03/15/23 [History] Hx Tetanus, Diphtheria Vaccination/Date Given: Yes Hx Influenza Vaccination/Date Given: Yes Hx Pneumococcal Vaccination/Date Given: Yes Travel Risk - International Travel Have you traveled outside of the country in past 3 weeks: No - Coronavirus Screening Are you exhibiting any of the following symptoms?: No Close contact with a COVID-19 positive Pt in past 14-21 Days: No - Vaccine Status Have you recieved a Covid-19 vaccination: Yes Seismographer: Unknown - Vaccination Dates Dates if Unknown: unkonwn - Review of Systems Constitutional: No Symptoms, No Fever, No Chills Eyes: No Symptoms Ears, Nose, & Throat: No Symptoms Respiratory: No Symptoms, No Cough, No Dyspnea Cardiac: No Symptoms, No Chest Pain, No Edema, No Syncope Abdominal/Gastrointestinal: No Symptoms, No Abdominal Pain, No Nausea, No Vomiting, No Diarrhea Genitourinary Symptoms: No Symptoms, No Dysuria Musculoskeletal: No Symptoms, No Back Pain, No Neck Pain Skin: No Symptoms, No Rash Neurological: No Symptoms, No Dizziness, No Focal Weakness, No Sensory Changes Psychological: No Symptoms Endocrine: No Symptoms Hematologic/Lymphatic: No Symptoms Immunological/Allergic: No Symptoms All Other Systems: Reviewed and Negative - Past Medical History Pertinent Past Medical History: Yes Neurological History: No Pertinent History ENT History: No Pertinent History Cardiac History: Coronary Artery Disease, High Cholesterol, Myocardial Infarction ([place]) Respiratory History: No Pertinent History Endocrine Medical History: No Pertinent History Musculoskeletal History: Fractures GI Medical History: Diverticulitis, Diverticulosis History: No Pertinent History Psycho-Social History: No Pertinent History Male Reproductive Disorders: No Pertinent History Other Medical History: repeated shoulder dislocations - Past Surgical History Past Surgical History: Yes Neuro Surgical History: No Pertinent History Cardiac: CABG, Cardiac Stent, Internal Defibrillator, Pacemaker Respiratory: No Pertinent History Gastrointestinal: No Pertinent History Genitourinary: No Pertinent History Musculoskeletal: Orthopedic Surgery Male Surgical History: No Pertinent History Other Surgical History: Right shoulder rotator cuff repair,, cardiac stent x one placed, pacemaker/defib. placed 2017. - Social History Smoking Status: Current every day smoker How long have you smoked: 50 years Exposure to second hand smoke: Yes Drug Use: none Patient Lives Alone: No - Nursing Vital Signs Nursing Vital Signs: Initial Vital Signs Temperature 97.4 F 03/15/23 15:38 Pulse Rate 77 03/15/23 15:38 Blood Pressure 128/91 03/15/23 15:38 O2 Sat by Pulse Oximetry 92 L 03/15/23 15:38 Pain Scale Pain Intensity 10 - Physical Exam General Appearance: no apparent distress, alert Eyes, Ears, Nose, Throat Exam: moist mucous membranes Neck Exam: non-tender, supple Cardiovascular/Respiratory Exam: chest non-tender, normal breath sounds, regular rate/rhythm, no respiratory distress Abdominal Exam: non-tender, soft, No guarding Back Exam: normal inspection, No vertebral tenderness Shoulder Exam: normal inspection (Overlying soft tissue intact. No signs of trauma.), limited ROM Elbow/Forearm Exam: normal inspection, non-tender, no evidence of injury, normal ROM Wrist Exam: normal inspection, non-tender, no evidence of injury, normal ROM Hand Exam: normal inspection, non-tender, no evidence of injury, normal ROM Neuro/Tendon Exam: normal sensation, normal motor functions Mental Status Exam: alert, oriented x 3, cooperative Skin Exam: normal color, warm, dry SpO2 Interpretation: normal SpO2: 92 O2 Delivery: Room Air - Course Nursing assessment & vital signs reviewed: Yes EKG Interpreted by Me: RATE (82, a flutter. Patient anticoagulated.) - Radiology Exams Shoulder X-ray Interpretation: Teleradiologist Report (Osteopenia, lobe bullae right lung, no new acute findings) Ordered Tests: Active Orders 24 hr Category Date Time Status EKG-ER Only STAT Care 03/15/23 16:29 Active SHOULDER Stat Exams 03/15/23 16:05 Completed Medication Summary Discontinued Medications Generic Name Dose Route Start Last Admin Trade Name Freq PRN Reason Stop Dose Admin Hydrocodone Bitart/Acetaminophen 4 tab 03/15/23 17:11 Hydrocodone/Apap 5/325 1 Tab Tablet PO 03/15/23 17:12 SENT HOME W/ PATIENT ONE Morphine Sulfate 4 mg 03/15/23 16:46 03/15/23 16:56 Morphine Sulfate 4 Mg/Ml Injection IM 03/15/23 16:47 4 mg STAT ONE Administration Morphine Sulfate Confirm 03/15/23 16:55 Morphine Sulfate 4 Mg/Ml Injection Administered 03/15/23 16:56 Dose 4 mg .ROUTE .STK-MED ONE - Progress Progress: improved Progress Note: 63-year-old male presents to emergency department for evaluation of right shoulder pain post CT arthrogram right shoulder. Physical exam essentially nonremarkable. Involved extremity is neurovascular tact distally. Compartments are soft. Cap refill less than 2 seconds. X-ray shows chronic changes. No acute findings. Patient received IM morphine for pain control. A prescription for [place] forwarded to patient's pharmacy. Screening EKG completed. Patient has a flutter. However patient is on anticoagulation patient for this known a flutter/A-fib. Patient pain significantly improved. He states is ready for discharge. Patient declined a right upper extremity sling. He voices no other complaints or concerns at this time. Portions of this note were created with voice recognition technology. There may be grammatical, spelling, punctuation or sound alike errors Complex of data reviewed and analyzed is moderate. X-ray ordered. X-ray dependently reviewed by Dr. Trejo. Clinical correlation made between the imaging study and history and physical examination. Formal read obtained by Dr. Marinelli. No acute findings observed. No critical care time Risk complication and a risk of morbidity/mortality of patient management is moderate. A prescription for [place] forwarded to patient's pharmacy. Patient agrees to follow-up with his primary care doctor within 48 hours for reevaluation. Vital stable. Time spent to discharge patient is approximately 15 minutes. Plan of care established for shared decision making. No social determinants of health present to impede follow-up. Portions of this note were created with voice recognition technology. There may be grammatical, spelling, punctuation or sound alike errors 03/15/23 17:20 Counseled pt/family regarding: diagnosis, need for follow-up, rad results - Departure Departure Disposition: Home Clinical Impression: Other acute postprocedural pain, Shoulder pain post arthrogram Condition: Stable Critical Care Time: No Referrals: GAIL MONROY [Primary Care Provider] - Follow up/PCP as directed Additional Instructions: Discharge/Care Plan ISADORA BRONW was seen on 03/15/23 in the Emergency Room. The patient was counseled regarding Diagnosis,Lab results, Imaging studies, need for follow up and when to return to the Emergency Room. Prescriptions given: Discharge Note I have spoken with the patient and/or caregivers. I have explained the patient's condition, diagnosis and treatment plan based on the information available to me at this time. I have answered the patient's and/or caregiver's questions and addressed any concerns. The patient and/or caregivers have as good understanding of the patient's diagnosis, condition and treatment plan as can be expected at this point. The vital signs have been stable. The patient's condition is stable and appropriate for discharge from the emergency department. The patient will pursue further outpatient evaluation with the primary care physician or other designated or consulting physician as outlined in the discharge instructions. The patient and/or caregivers are agreeable to this plan of care and follow-up instructions have been explained in detail. The patient and/or caregivers have received these instruction. The patient/and or caregivers are aware that any significant change in condition or worsening of symptoms should prompt an immediate return to this or the closest emergency department or call 911. Prescriptions: Hydrocodone/APAP 5/325 [[place] 5/325 mg] 1 each PO Q6H PRN PRN 3 Days #10 tablet MDD 4 PRN Reason: Pain Hydrocodone/Acetaminophen [Hydrocodone-Acetamin 7.5-325] 1 each PO Q6-8HPRN PRN 3 Days #10 tablet MDD 4 PRN Reason: Pain
[2023-03-15] MEDS ORDERED: NORCO 5/325 MG PO ONE (17:11)
== END 2023-03-15 17:36 | disposition home or self-care (01) ==
LOC: ED 15:31
DX: G89.18 Other acute postprocedural pain (principal); M25.511 Pain in right shoulder; E78.5 Hyperlipidemia, unspecified; Z79.891 Long term (current) use of opiate analgesic; Z79.02 Long term (current) use of antithrombotics/antiplatelets; Z79.899 Other long term (current) drug therapy; Z72.0 Tobacco use
CPT/HCPCS: 73030; 93005; 96372; 99283; J2270

== ENCOUNTER 2024-02-02 15:00 | Emergency (ER) | payer MEDICARE ==
[2024-02-02 15:23] VITALS: TEMP 96
[2024-02-02 15:40] LABS: Hematocrit 28.8 % (40.1-51.0); Hemoglobin 9.3 g/dL (13.7-17.5); Mean Cell Volume 113.4 fL (79.0-92.2); Mean Corpuscular Hemoglobin 36.6 pg (25.7-32.2); Mean Corpuscular Hgb Concent. 32.3 g/dL (32.3-36.5); Mean Platelet Volume 10.4 fL (9.4-12.4); Platelet Count 299 x10^3/uL (163-337); Red Blood Count 2.54 x10^6/uL (4.63-6.08); Red Cell Distribution Width 15.9 % (11.6-14.4); White Blood Count 5.6 x10^3/uL (4.23-9.07)
[2024-02-02] MEDS ORDERED: Sodium Chloride 0.9% 1000 ML 1,000 ML ONE (15:40)
--- NOTE | 2024-02-02 15:41 | ERPHSYRPT ---
- History of Present Illness Time Seen by Provider: 02/02/24 15:39 Source: patient Exam Limitations: no limitations Patient Subjective Stated Complaint: Pt c/o of weakness, and his heart "feeling funny", pt states that he sees a supervisor powdered metal for MDS and they found a spot on his lung that they are going to biopsy Triage Nursing Assessment: Pt brought self to the ER, vitals wnl, denies pain, has an extensive heart history, on blood thinners, has a pacemaker/defibrillator, pt was at home in the recliner when he began "not feeling well", dizziness, nausea, last intake this morning, pulses normal, skin bleeding in multiple areas on arms and legs Physician History: Patient is 63-year-old male with significant past medical history of cardiomyopathy systemic coronary artery disease s/p coronary artery bypass graft history of pacemaker defibrillator placement history of myelodysplastic syndrome history of COPD and recently new lesion on his lung has not been feeling well for last 3 to 5 days. He has been feeling weak. He denies any chest pain nausea vomiting or diarrhea. He is also complaining of generalized body ache. Timing/Duration: day(s) Associated Symptoms: weakness Allergies/Adverse Reactions: amoxicillin [Amoxicillin] Allergy (Intermediate, Verified 02/02/24 15:23) Rash bee venom protein (honey bee) Allergy (Verified 02/02/24 15:23) empagliflozin [From Jardiance] Allergy (Verified 02/02/24 15:23) sacubitril [From Entresto] Allergy (Verified 02/02/24 15:23) valsartan [From Entresto] Allergy (Verified 02/02/24 15:23) Home Medications: Duloxetine HCl 30 mg [Cymbalta 30 MG Capsule] 30 mg PO DAILY 09/14/15 [History] Carvedilol 12.5 mg [Coreg 12.5 mg] 12.5 mg PO BID 10/31/22 [History] Clopidogrel Bisulfate [Clopidogrel] 75 mg PO DAILY 03/15/23 [History] Furosemide 20 mg PO UD PRN 03/15/23 [History] Atorvastatin Calcium 40 mg PO DAILY 02/02/24 [History] Mexiletine HCl 150 mg PO BID 02/02/24 [History] Prednisone 10 mg [Deltasone 10 mg] 10 mg PO UD 02/02/24 [History] Prednisone 5 mg [Deltasone 5 mg] 15 mg PO DAILY 02/02/24 [History] Hx Tetanus, Diphtheria Vaccination/Date Given: Yes Hx Influenza Vaccination/Date Given: Yes Hx Pneumococcal Vaccination/Date Given: Yes Travel Risk - International Travel Have you traveled outside of the country in past 3 weeks: No - Emerging Infectious Disease Are you exhibiting symptoms associated with any current EIDs: No - Review of Systems Constitutional: Weakness, No Fever, No Chills Eyes: No Symptoms Ears, Nose, & Throat: No Symptoms Respiratory: No Cough, No Dyspnea Cardiac: Palpitations, No Chest Pain, No Edema, No Syncope Abdominal/Gastrointestinal: No Abdominal Pain, No Nausea, No Vomiting, No Diarrhea Genitourinary Symptoms: No Dysuria Musculoskeletal: No Back Pain, No Neck Pain Skin: No Rash Neurological: No Dizziness, No Focal Weakness, No Sensory Changes Psychological: No Symptoms Endocrine: No Symptoms All Other Systems: Reviewed and Negative - Past Medical History Pertinent Past Medical History: Yes Neurological History: No Pertinent History ENT History: No Pertinent History Cardiac History: Coronary Artery Disease, High Cholesterol, Myocardial Infarct ion ([place]) Respiratory History: No Pertinent History Endocrine Medical History: No Pertinent History Musculoskeletal History: Fractures GI Medical History: Diverticulitis, Diverticulosis History: No Pertinent History Psycho-Social History: No Pertinent History Male Reproductive Disorders: No Pertinent History Other Medical History: repeated shoulder dislocations, MDS - bone marrow cancer - Past Surgical History Past Surgical History: Yes Neuro Surgical History: No Pertinent History Cardiac: CABG, Cardiac Stent, Internal Defibrillator, Pacemaker Respiratory: No Pertinent History Gastrointestinal: No Pertinent History Genitourinary: No Pertinent History Musculoskeletal: Orthopedic Surgery Male Surgical History: No Pertinent History Other Surgical History: Right shoulder rotator cuff repair,, cardiac stent x one placed, pacemaker/defib. placed 2017. - Social History Smoking Status: Current some day smoker How long have you smoked: 50 years Exposure to second hand smoke: Yes Drug Use: none Patient Lives Alone: No - Social Determinants of Health Will the patient participate in the screening: Yes Do you worry about a steady place to live?: No Do you have any problems with any of the following?: No known problems In the past 12 months,have you had to go without utilities?: No Transportation Issues: No Has anyone in your support network made you feel unsafe?: No Have you or anyone in your house had to go without enough: No - Nursing Vital Signs Nursing Vital Signs: Initial Vital Signs Temperature 96.0 F 02/02/24 15:06 Pulse Rate 98 H 02/02/24 15:06 Respiratory Rate 23 02/02/24 15:06 Blood Pressure 118/83 02/02/24 15:06 O2 Sat by Pulse Oximetry 100 02/02/24 15:06 Pain Scale Pain Intensity 7 - Physical Exam General Appearance: mild distress, alert Eye Exam: PERRL/EOMI, eyes nml inspection Ears, Nose, Throat Exam: normal ENT inspection, TMs normal, pharynx normal, moist mucous membranes Neck Exam: normal inspection, non-tender, supple, full range of motion Respiratory Exam: diminished breath sounds, crackles/rales, No respiratory distress Cardiovascular Exam: regular rate/rhythm Gastrointestinal/Abdomen Exam: soft, normal bowel sounds, No tenderness, No mass Back Exam: normal inspection, normal range of motion, No CVA tenderness, No vertebral tenderness Extremity Exam: normal inspection, normal range of motion, pelvis stable Neurologic Exam: alert, oriented x 3, cooperative, normal mood/affect, nml cerebellar function, nml station & gait, sensation nml, No motor deficits Skin Exam: normal color, warm, dry, No rash Lymphatic Exam: No adenopathy SpO2: 100 - Course Nursing assessment & vital signs reviewed: Yes EKG Interpreted by Me: Sinus Rhythm, Non-specific ST Changes Rhythm Strip: Normal Sinus Rhythm - Radiology Exams Chest X-ray Interpretation: Interpreted by me, Reviewed by me Ordered Tests: Active Orders 24 hr Category Date Time Status EKG-ER Only STAT Care 02/02/24 15:32 Active CHEST 2 VIEWS (PA AND LAT) Stat Exams 02/02/24 16:10 Taken CBC W DIFF Stat Lab 02/02/24 15:37 Results CMP Stat Lab 02/02/24 15:37 Completed CULTURE,URINE Stat Lab 02/02/24 Received Lactic Acid Stat Lab 02/02/24 15:32 Completed MAGNESIUM Stat Lab 02/02/24 15:37 Completed Manual Differential NC Stat Lab 02/02/24 15:37 Results Pathologist Review Stat Lab 02/02/24 15:37 Results TROPONIN Stat Lab 02/02/24 15:37 Completed UA W/RFX UR CULTURE Stat Lab 02/02/24 Completed Medication Summary Discontinued Medications Generic Name Dose Route Start Last Admin Trade Name Ender PRN Reason Stop Dose Admin Sodium Chloride 1,000 mls @ 999 mls/hr 02/02/24 15:32 02/02/24 16:43 Sodium Chloride 0.9% 1000 Ml IV 02/02/24 16:32 Infused .Q1H1M STA Infusion Sodium Chloride Confirm 02/02/24 15:40 Sodium Chloride 0.9% 1000 Ml Administered 02/02/24 15:41 Dose 1,000 mls @ ud .ROUTE .STK-MED ONE Lorazepam 1 mg 02/02/24 16:24 02/02/24 16:31 Lorazepam 2 Mg/1 Ml 2 Mg Vial IV 02/02/24 16:25 1 mg STAT ONE Administration Lorazepam Confirm 02/02/24 16:29 Lorazepam 2 Mg/1 Ml 2 Mg Vial Administered 02/02/24 16:30 Dose 2 mg .ROUTE .STK-MED ONE Lab/Rad Data: Laboratory Result Diagrams 02/02/24 15:37 02/02/24 15:37 Laboratory Results 02/02/24 02/02/24 02/02/24 Range/Units Unknown 15:37 15:37 WBC 5.6 (4.23-9.07) x10^3/uL RBC 2.54 L (4.63-6.08) x10^6/uL Hgb 9.3 L (13.7-17.5) g/dL Hct 28.8 L (40.1-51.0) % MCV 113.4 H (79.0-92.2) fL MCH 36.6 H (25.7-32.2) pg MCHC 32.3 (32.3-36.5) g/dL RDW 15.9 H (11.6-14.4) % Plt Count 299 (163-337) x10^3/uL MPV 10.4 (9.4-12.4) fL Segmented Neutrophils 52 H (1.78-5.38) % Lymphocytes (Manual) 35 (24-44) % Monocytes (Manual) 13 H (0.0-12.0) % Nucleated RBCs 3 % Platelet Estimate NORMAL (NORMAL) RBC Morphology ABNORMAL Macrocytosis 2+ Smear Path Review Pending Sodium 139 (135-145) mmol/L Potassium 4.8 (3.5-5.1) mmol/L Chloride 107 (98-107) mmol/L Carbon Dioxide 22 (22-30) mmol/L Anion Gap 14.9 (5-15) MEQ/L BUN 22 H (9-20) mg/dL Creatinine 1.34 H (0.66-1.25) mg/dL Estimated GFR 58.8 ML/MIN Glucose 114 H (74-106) mg/dL Lactic Acid (0.4-2.0) Calcium 9.1 (8.4-10.2) mg/dL Magnesium 2.2 (1.6-2.3) mg/dL Total Bilirubin 0.70 (0.2-1.3) mg/dL AST 48 (17-59) U/L ALT 103 H (0-50) U/L Alkaline Phosphatase 76 (38-126) U/L Troponin I 0.012 (0.000-0.033) ng/mL Serum Total Protein 5.9 L (6.3-8.2) g/dL Albumin 3.9 (3.5-5.0) g/dL Urine Color Yellow (Yellow) Urine Appearance Clear (Clear) Urine pH 5.5 (4.6-8.0) Ur Specific M[place] 1.025 (1.005-1.030) Urine Protein 30 (Negative) Urine Glucose (UA) Negative (Negative) mg/dL Urine Ketones Trace A (Negative) Urine Blood Trace (Negative) Urine Nitrite Negative (Negative) Urine Bilirubin Negative (Negative) Urine Urobilinogen 1.0 A (0.2) mg/dL Ur Leukocyte Esterase Negative (Negative) U Hyaline Cast (Auto) 0-2 (0-2) /LPF Urine Microscopic RBC 0-2 (0-5) /HPF Urine Microscopic WBC 0-2 (0-5) /HPF Ur Epithelial Cells None Seen (None Seen) /HPF Urine Bacteria Rare A (None Seen) /HPF Urine Culture Reflexed YES (NO) 02/02/24 Range/Units 15:32 WBC (4.23-9.07) x10^3/uL RBC (4.63-6.08) x10^6/uL Hgb (13.7-17.5) g/dL Hct (40.1-51.0) % MCV (79.0-92.2) fL MCH (25.7-32.2) pg MCHC (32.3-36.5) g/dL RDW (11.6-14.4) % Plt Count (163-337) x10^3/uL MPV (9.4-12.4) fL Segmented Neutrophils (1.78-5.38) % Lymphocytes (Manual) (24-44) % Monocytes (Manual) (0.0-12.0) % Nucleated RBCs % Platelet Estimate (NORMAL) RBC Morphology Macrocytosis Smear Path Review Sodium (135-145) mmol/L Potassium (3.5-5.1) mmol/L Chloride (98-107) mmol/L Carbon Dioxide (22-30) mmol/L Anion Gap (5-15) MEQ/L BUN (9-20) mg/dL Creatinine (0.66-1.25) mg/dL Estimated GFR ML/MIN Glucose (74-106) mg/dL Lactic Acid 3.3 H (0.4-2.0) Calcium (8.4-10.2) mg/dL Magnesium (1.6-2.3) mg/dL Total Bilirubin (0.2-1.3) mg/dL AST (17-59) U/L ALT (0-50) U/L Alkaline Phosphatase (38-126) U/L Troponin I (0.000-0.033) ng/mL Serum Total Protein (6.3-8.2) g/dL Albumin (3.5-5.0) g/dL Urine Color (Yellow) Urine Appearance (Clear) Urine pH (4.6-8.0) Ur Specific [place] (1.005-1.030) Urine Protein (Negative) Urine Glucose (UA) (Negative) mg/dL Urine Ketones (Negative) Urine Blood (Negative) Urine Nitrite (Negative) Urine Bilirubin (Negative) Urine Urobilinogen (0.2) mg/dL Ur Leukocyte Esterase (Negative) U Hyaline Cast (Auto) (0-2) /LPF Urine Microscopic RBC (0-5) /HPF Urine Microscopic WBC (0-5) /HPF Ur Epithelial Cells (None Seen) /HPF Urine Bacteria (None Seen) /HPF Urine Culture Reflexed (NO) - Progress Progress: unchanged Progress Note: 02/02/24 17:36 I discussed lab with the patient in detail. I explained that his weakness is probably due to his anemia which is a part of complication of his myelody splastic syndrome. Patient states that he already has an appointment with his hematology oncologist in the next 2 to 3 days. I I advised him to take all the labs we have done today copy with him when he goes and sees supervisor powdered metal. Counseled pt/family regarding: lab results, diagnosis, need for follow-up (With Computer Applications Engineer) - Departure Departure Disposition: Home Clinical Impression: Generalized weakness, Anemia, myelopathic Condition: Stable Critical Care Time: No Referrals: GAIL MONROY [Primary Care Provider] - Follow up/PCP as directed Instructions: Myelodysplastic syndromes (MDS) Additional Instructions: Your lab results shows hemoglobin of 9.3 which is consistent with anemia which suggests your generalized weakness please follow-up with your supervisor powdered metal as s oon as possible for further management. Please take all your lab reports with you when you go and see supervisor powdered metal. Discharge/Care Plan ISADORA BROWN was seen on 02/02/24 in the Emergency Room. The patient was counseled regarding Diagnosis,Lab results, Imaging studies, need for follow up and when to return to the Emergency Room. Prescriptions given: Discharge Note I have spoken with the patient and/or caregivers. I have explained the patient's condition, diagnosis and treatment plan based on the information available to me at this time. I have answered the patient's and/or caregiver's questions and addressed any concerns. The patient and/or caregivers have as good understanding of the patient's diagnosis, condition and treatment plan as can be expected at this point. The vital signs have been stable. The patient's condition is stable and appropriate for discharge from the emergency department. The patient will pursue further outpatient evaluation with the primary care physician or other designated or consulting physician as outlined in the discharge instructions. The patient and/or caregivers are agreeable to this plan of care and follow-up instructions have been explained in detail. The patient and/or caregivers have received these instruction. The patient/and or caregivers are aware that any significant change in condition or worsening of symptoms should prompt an immediate return to this or the closest emergency department or call 911. ISADORA BROWN was seen on 02/02/24 n the Emergency Room. At that time you were treated for an emergent condition, during your visit Laboratory, Radiology and/or other procedures may have been ordered. It is very important that you follow-up with your Primary Care Physician GAIL MONROY within the next 24-48 hours to review your Emergency Room visit and the final results of testing that was ordered. Some test results such as Urine Cultures, Blood Cultures, and other cultures if ordered will not be finalized for 24-48 hours. If you do not have a Primary Care Provider please call the medical records department at [phone] ext [phone] to obtain a copy of your results or you may sign into our patient portal to obtain these results by visiting us @ [email or web address] and completing the following steps: 1. Click on the Patient Portal link 2. Click the Patient Self Enrollment Link to complete the enrollment form and entering your 3. Once the enrollment form is completed you will receive an email with a temporary ID and password at the email address you provided. 4. Next choose a user name and password. Your user name must be at least 4 characters long and your password must be at least 4 characters long. 5. Choose a security question from the list and provide your answer to the qu estion. If you already have signed into the Health Portal you may access your Health C are Information 21/01 by the following steps: 1. Login to our website @ [email or web address] 2. Enter your original user name and password. FAQS The [facility] Health Portal is an online tool that contains your Lab Results, Radiology Reports, Visit History, Discharge Instructions and Health Summary Lab and Radiology Results will not be available for 72 hours on the portal. The Portal is a secure site, passwords are encryted and URLs are re-written so they cannot be copied and pasted. You and authorized family members are the only ones who can access your Portal. Also there is a timeout feature that protects your information if you leave the Portal page open. If you have technical difficulty please use the Contact Us link on the page this will allow you to submit any questions you have regarding the Portal or you may contact the Medical Record Department at [phone] ext [phone].
[2024-02-02] MEDS: Sodium Chloride 0.9% 1000 ML 1,000 ML IV STA (15:42)
[2024-02-02 15:55] LABS: ALBUMIN 3.9 g/dL (3.5-5.0); ANION GAP 14.9 MEQ/L (5-15); BILIRUBIN,TOTAL 0.7 mg/dL (0.2-1.3); Calcium 9.1 mg/dL (8.4-10.2); Creatinine 1 1.34 mg/dL (0.66-1.25); EST GLOMERULAR FILTRATION RATE 58.8 ML/MIN; MAGNESIUM 2.2 mg/dL (1.6-2.3); Potassium 4.8 mmol/L (3.5-5.1); TROPONIN 0.012 ng/mL (0.000-0.033); Total Protein 5.9 g/dL (6.3-8.2)
[2024-02-02 16:00] LABS: Appearance Clear (Clear); Bilirubin Negative (Negative); Blood Trace (Negative); Epithelial Cells None Seen /HPF (None Seen); Glucose, Urine Negative (Negative); Ketones Trace (Negative); Leukocyte Esterase Negative (Negative); Nitrite Negative (Negative); Ph 5.5 (4.6-8.0); Protein,Urine Dip 30 (Negative); RBC 0-2 /HPF (0-5); Specific Gravity 1.025 (1.005-1.030); WBC 0-2 /HPF (0-5)
[2024-02-02 16:01] LABS: ADD URINE CULTURE? YES (NO)
[2024-02-02 16:03] LABS: Bacteria Rare /HPF (None Seen); Hyaline Casts 0-2 /LPF (0-2)
[2024-02-02 16:26] LABS: Lymphocytes 35 % (24-44); Monocyte 13 % (0.0-12.0); Neutrophils 52 % (1.78-5.38); Nucleated Red Blood Cell 3 %; Total Cells Counted 100
[2024-02-02 16:27] LABS: Macrocytosis 2+; Platelet Estimate NORMAL (NORMAL)
[2024-02-02] MEDS ORDERED: Ativan 2 MG/1 ML VIAL ONE (16:29)
[2024-02-02] MEDS: Ativan 2 MG/1 ML VIAL IV ONE (16:31)
[2024-02-02 17:41] VITALS: O2SAT 100
[2024-02-02 18:11] VITALS: BP 120/83; PULSE 70; RESP 20
--- NOTE | 2024-02-02 19:28 | XRAY ---
Indication: Chest pain. Weakness. Comparison: October 31, 2022 PA/lateral chest again hyperinflated with now minimal left lung base subsegmental atelectasis/scarring. No focal infiltrate, consolidation, or large effusion. Heart not enlarged again with CABG and left AICD. Bony thorax intact again with osteopenia and degenerative changes. Impression: Nonacute hyperinflated chest with chronic features.
== END 2024-02-02 18:12 | disposition home or self-care (01) ==
LOC: ED 15:00
DX: R53.1 Weakness (principal); D64.89 Other specified anemias; M79.10 Myalgia, unspecified site; E78.5 Hyperlipidemia, unspecified; Z79.02 Long term (current) use of antithrombotics/antiplatelets; Z79.52 Long term (current) use of systemic steroids; Z79.899 Other long term (current) drug therapy; Z72.0 Tobacco use
CPT/HCPCS: 36415; 71046; 80053; 81001; 83605; 83735; 84484; 85025; 87077; 87086; 87186; 93005; 96374; 99284; J2060

== ENCOUNTER 2024-02-10 15:51 | Emergency (ER) | payer MEDICARE ==
--- NOTE | 2024-02-10 16:07 | ERPHSYRPT ---
- History of Present Illness Source: EMS Exam Limitations: no limitations Physician History: With the patient arrived. He had been and CPR for at least an hour. They had found him down while he was asleep for an unknown amount of time. They started CPR at home. It is unknown how long he was down before they found him. CPR went on for about 30 minutes and then they had a brief spell of PEA. After that the PEA went away and he was in asystole. They went ahead and brought him in. Upon receiving this news I called the code. He was not going to make it. Aspirin Treatment Today: unknown Allergies/Adverse Reactions: amoxicillin [Amoxicillin] Allergy (Intermediate, Verified 02/02/24 15:23) Rash bee venom protein (honey bee) Allergy (Verified 02/02/24 15:23) empagliflozin [From Jardiance] Allergy (Verified 02/02/24 15:23) sacubitril [From Entresto] Allergy (Verified 02/02/24 15:23) valsartan [From Entresto] Allergy (Verified 02/02/24 15:23) Home Medications: Duloxetine HCl 30 mg [Cymbalta 30 MG Capsule] 30 mg PO DAILY 09/14/15 [History] Carvedilol 12.5 mg [Coreg 12.5 mg] 12.5 mg PO BID 10/31/22 [History] Clopidogrel Bisulfate [Clopidogrel] 75 mg PO DAILY 03/15/23 [History] Furosemide 20 mg PO UD PRN 03/15/23 [History] Atorvastatin Calcium 40 mg PO DAILY 02/02/24 [History] Mexiletine HCl 150 mg PO BID 02/02/24 [History] Prednisone 10 mg [Deltasone 10 mg] 10 mg PO UD 02/02/24 [History] Prednisone 5 mg [Deltasone 5 mg] 15 mg PO DAILY 02/02/24 [History] Hx Tetanus, Diphtheria Vaccination/Date Given: Yes Hx Influenza Vaccination/Date Given: Yes Hx Pneumococcal Vaccination/Date Given: Yes Travel Risk - Emerging Infectious Disease Are you exhibiting symptoms associated with any current EIDs: No - Review of Systems All Other Systems: Unable due to condition - Past Medical History Pertinent Past Medical History: Yes Neurological History: No Pertinent History ENT History: No Pertinent History Cardiac History: Coronary Artery Disease, High Cholesterol, Myocardial Infarction ([place]) Respiratory History: No Pertinent History Endocrine Medical History: No Pertinent History Musculoskeletal History: Fractures GI Medical History: Diverticulitis, Diverticulosis History: No Pertinent History Psycho-Social History: No Pertinent History Male Reproductive Disorders: No Pertinent History Other Medical History: repeated shoulder dislocations, MDS - bone marrow cancer - Past Surgical History Past Surgical History: Yes Neuro Surgical History: No Pertinent History Cardiac: CABG, Cardiac Stent, Internal Defibrillator, Pacemaker Respiratory: No Pertinent History Gastrointestinal: No Pertinent History Genitourinary: No Pertinent History Musculoskeletal: Orthopedic Surgery Male Surgical History: No Pertinent History Other Surgical History: Right shoulder rotator cuff repair,, cardiac stent x one placed, pacemaker/defib. placed 2017. - Social History Smoking Status: Current some day smoker How long have you smoked: 50 years Exposure to second hand smoke: Yes Drug Use: none Patient Lives Alone: No - Social Determinants of Health Will the patient participate in the screening: Yes Do you worry about a steady place to live?: No In the past 12 months,have you had to go without utilities?: No Transportation Issues: No Has anyone in your support network made you feel unsafe?: No Have you or anyone in your house had to go without enough: No - Physical Exam General Appearance: other () - Course Nursing assessment & vital signs reviewed: Yes - Progress Progress Note: The patient was in asystole for at least an hour. I went ahead and called the code. 02/10/24 16:05 - Departure Departure Disposition: Clinical Impression: Cardiopulmonary arrest Condition: Stable Critical Care Time: No Referrals: GAIL MONROY [Primary Care Provider] - Follow up/PCP as directed
== END 2024-02-10 21:30 | disposition expired ==
LOC: ED 15:51
DX: I46.9 Cardiac arrest, cause unspecified (principal); E78.5 Hyperlipidemia, unspecified; Z79.02 Long term (current) use of antithrombotics/antiplatelets; Z79.52 Long term (current) use of systemic steroids; Z79.899 Other long term (current) drug therapy; Z72.0 Tobacco use
CPT/HCPCS: 94799; 99282